=== PATIENT | male | born 1970 | race Caucasian/White ===

== ENCOUNTER 2018-11-06 01:05 | Emergency (ER) | payer MEDICAID, OTHER ==
[2015-10-15 12:55] VITALS: BP 147/65
[2018-11-06] MEDS ORDERED: KETOROLAC 30 MG/ML VIAL. ONE (02:00)
[2018-11-06] MEDS ORDERED: DEXAMETHASONE 4 MG TABLET ONE (02:00)
--- NOTE | 2018-11-06 07:42 | RAD ---
Indication: Right hip pain TECHNIQUE: 2 views of the right hip COMPARISON: None Findings/ impression: No acute fracture or dislocation. No imaging evidence of arthritis. Electronically signed by: Subhash Westfall DO (11/06/2018 7:39 AM) [facility]
== END 2018-11-06 01:40 | disposition home or self-care (01) ==
LOC: ER 01:05
DX: M25.551 Pain in right hip (principal); H92.02 Otalgia, left ear; R10.31 Right lower quadrant pain
CPT/HCPCS: 73502; 96372; 99284; J1885; J8540

== ENCOUNTER 2019-05-16 19:36 | Emergency (ER) | payer MEDICAID ==
[~2019-05-16] VITALS: Ht 172.7 cm; Wt 59.1 kg
[2019-05-16 20:15] VITALS: BP 167/75
[2019-05-16] MEDS ORDERED: KETOROLAC 60 MG/2 ML VIAL. IM ONE (21:00)
--- NOTE | 2019-05-16 21:17 | RAD ---
CHEST PA LATERAL Technique: PA and lateral views of the chest were obtained. Clinical History: Cough Comparison: April 09, 2014. Findings: The heart and pulmonary vasculature appear within normal limits. There are linear opacities in the lung bases. The pleural margins are clear. Impression: Basal infiltrates likely discoid atelectasis. Electronically signed by: King Cuevas III, MD (05/16/2019 9:14 PM) [facility]
[2019-05-16] MEDS ORDERED: AZIT250T PO (21:55)
[2019-05-16] MEDS ORDERED: DICL50TA4 PO (21:55)
--- NOTE | 2019-05-16 21:55 | PHYS DOC ---
Past Medical History Past Medical History: Anxiety, Hepatitis, Schizophrenia, Other Additional Past Medical Histor: TRAUMATIC BRAIN INJURY, BRAIN BLEEDS X 2 Past Surgical History: No Surgical History, Other Additional Past Surgical Histo: jaw fracture repair,back surg nos Alcohol Use: Occasionally Drug Use: None, Other Adult General Chief Complaint Chief Complaint: RIB PAIN HPI HPI Patient is a 48 year old male who presents with complaint of right sided chest wall pain that he describes as sharp and stabbing. Patient indicates that he has been having a cough that is intermittently productive sputum. Patient states that he is afraid that he has pneumonia. He denies any fever. He denies shortness of breath. He does indicate that the pain in his ribs is worsened with deep breathing. He states symptoms have been present for the last 2 days.[] Review of Systems Review of Systems Constitutional: Denies fever or chills [] Respiratory: Positive cough without shortness of breath [] Cardiovascular: No additional information not addressed in HPI [] GI: Denies abdominal pain, nausea, vomiting or diarrhea [] Integument: Denies rash or skin lesions [] Neurologic: Denies headache, focal weakness or sensory changes [] Current Medications Current Medications Current Medications Medications (Trade) Dose Ordered Sig/Josefa Start Time Stop Time Status Last Admin Dose Admin Ketorolac Tromethamine (Toradol Im) 60 mg 1X ONCE 05/16/19 21:00 05/16/19 21:01 DC 05/16/19 21:38 60 MG Allergies Allergies Allergies Coded Allergies Type Severity Reaction Last Updated Verified Penicillins Allergy Intermediate rash 11/06/18 Yes Physical Exam Physical Exam Constitutional: Well developed, well nourished, no acute distress, non-toxic appearance. [] Neck: Normal range of motion, no tenderness, supple, no stridor. [] Cardiovascular: Regular rate and rhythm[] Lungs & Thorax: Bilateral breath sounds clear to auscultation. There is reproducible tenderness over the right lower gilma-lateral rib margin [] Abdomen: Bowel sounds normal, soft, no tenderness, no masses, no pulsatile masses. [] Skin: Warm, dry, no erythema, no rash. [] Extremities: No tenderness, no cyanosis, no clubbing, ROM intact, no edema. [] Neurologic: Alert and oriented X 3, no focal deficits noted. [] Current Patient Data Vital Signs Vital Signs Date Time Temp Pulse Resp B/P (MAP) Pulse Ox O2 Delivery O2 Flow Rate FiO2 05/16/19 20:15 98.3 87 16 167/75 (105) 100 Room Air 98.3 EKG EKG [] Radiology/Procedures Radiology/Procedures [] Course & Med Decision Making Course & Med Decision Making Pertinent Labs and Imaging studies reviewed. (See chart for details) [] Dragon Disclaimer Dragon Disclaimer This electronic medical record was generated, in whole or in part, using a voice recognition dictation system. Departure Departure Impression: Primary Impression: Acute bronchitis Additional Impression: Costochondritis Disposition: HOME, SELF-CARE Condition: STABLE Referrals: NO PCP (PCP) Patient Instructions: Acute Bronchitis, Costochondritis Scripts Azithromycin (ZITHROMAX) 250 Mg Tablet 1 PKG PO UD, #6 TAB Prov: CYNDEE TENORIO Jr. DO 05/16/19 Diclofenac Sodium (DICLOFENAC SODIUM) 50 Mg Tablet.dr 1 TAB PO BID PRN for PAIN, #20 TAB Prov: CYNDEE TENORIO Jr. DO 05/16/19 Problem Qualifiers Primary Impression: Acute bronchitis Bronchitis organism: unspecified organism Qualified Codes: J20.9 - Acute bronchitis, unspecified CYNDEE TENORIO Jr. DO May 16, 2019 21:55
== END 2019-05-16 22:00 | disposition home or self-care (01) ==
LOC: ER 19:36
DX: J20.9 Acute bronchitis, unspecified (principal); M94.0 Chondrocostal junction syndrome [Tietze]; F41.9 Anxiety disorder, unspecified; F20.89 Other schizophrenia; Z87.820 Personal history of traumatic brain injury; Z98.890 Other specified postprocedural states; Z88.0 Allergy status to penicillin
CPT/HCPCS: 71046; 96372; 99284; J1885

== ENCOUNTER 2021-01-23 11:20 | Inpatient (IN) | payer MEDICAID ==
[~2021-01-23] VITALS: Ht 170.2 cm; Wt 59.5 kg
[2021-01-23] VITALS (8 sets, daily range): BP systolic 107–124; BP diastolic 52–87
[~2021-01-23 11:20] MED LIST: AZIT250T PO; DICL50TA4 PO
[2021-01-23] MEDS ORDERED: ONDANSETRON PF 4 MG/2 ML VIAL. IVP ONE (12:00)
[2021-01-23] MEDS ORDERED: IV NORMAL SALINE 1000ML BAG 1,000 ML IV SCH (12:00)
[2021-01-23] MEDS ORDERED: PANTOPRAZOLE IV PUSH 40 MG VIAL. IVP ONE (12:00)
[2021-01-23 12:15] LABS: BASO % 1 % (0-3); EOS # 0.1 x10^3/uL (0.0-0.7); EOS % 1 % (0-3); HEMATOCRIT 35.2 % (39.0-53.0); LYMPH # 1.3 x10^3/uL (1.0-4.8); LYMPH % 21 % (24-48); MEAN CORPUSCULAR HEMOGLOBIN 34 pg (25-35); MEAN CORPUSCULAR HGB CONC 34 g/dL (31-37); MEAN CORPUSCULAR VOLUME 99 fL (79-100); MONO # 0.7 x10^3/uL (0.0-1.1); MONO % 12 % (0-9); NEUT # 4.2 x10^3/uL (1.8-7.7); NEUT % 66 % (31-73); PLATELET COUNT 137 x10^3/uL (140-400); RED BLOOD COUNT 3.56 x10^6/uL (4.30-5.70); RED CELL DISTRIBUTION WIDTH 15.6 % (11.5-14.5); WHITE BLOOD COUNT 6.4 x10^3/uL (4.0-11.0)
[2021-01-23 12:33] LABS: CALCIUM 8.2 mg/dL (8.5-10.1); CREATININE 0.8 mg/dL (0.7-1.3); GFR 102.7; POTASSIUM 4.3 mmol/L (3.5-5.1)
[2021-01-23 12:38] LABS: ALBUMIN 2.4 g/dL (3.4-5.0); ALBUMIN/GLOBULIN RATIO 0.6 (1.0-1.7); TOTAL BILIRUBIN 2.1 mg/dL (0.2-1.0); TOTAL PROTEIN 6.2 g/dL (6.4-8.2)
[2021-01-23] MEDS ORDERED: OCTREOTIDE 100 MCG/ML VIAL IV ONE (12:45)
[2021-01-23] MEDS ORDERED: IOHEXOL 300 MG/ML 100ML VIAL. IV ONE (12:45)
[2021-01-23] MEDS ORDERED: IV NORMAL SALINE 1000ML BAG 1,000 ML IV ONE (12:45)
[2021-01-23] MEDS ORDERED: MULTIVIT INFUSN,ADULT 4,VIT K 10 ML, THIAMINE INJ 100 MG, FOLIC ACID INJ 1 MG in IV NOR... IV ONE (13:00)
[2021-01-23] MEDS ORDERED: CONTRAST GIVEN. MC PRN (13:00)
[2021-01-23] MEDS: OCTREOTIDE 500 MCG in IV NORMAL SALINE 100ML 100 ML IV PRN (13:02)
--- NOTE | 2021-01-23 13:02 | PHYS DOC ---
Past Medical History Past Medical History: Anxiety, Hepatitis, Schizophrenia, Other Additional Past Medical Histor: TRAUMATIC BRAIN INJURY, BRAIN BLEEDS X 2 Past Surgical History: No Surgical History, Other Additional Past Surgical Histo: jaw fracture repair,back surg nos Smoking Status: Current Every Day Smoker Alcohol Use: Heavy Drug Use: None, Other General Adult EDM: Chief Complaint: HEMATEMESIS/VOMITING BLOOD HPI: HPI: Patient is a 50 year old male who presents with his 9:00 this morning is been vomiting bright red blood. He states he feels like he is rotting from the inside out when he does have some tremors. He states he drinks 5 beers a day. He states he drinks no beers today. He does have tremors when he holds his hands out. Patient is having visual hallucinations. He is calm and cooperative. He states he is having epigastric pain and just does not feel well in general. He is denying any kind of drug use. He denies having been diagnosed with any varices in the past. He has a history of alcoholism, hepatitis, schizophrenia, anxiety, smoking, traumatic brain injury, brain bleed x3. Denying headache, blood in his stool, cough, shortness of breath, fever, dizziness, vision change, numbness and tingling, focal weakness. Review of Systems: Review of Systems: Constitutional: Denies fever or chills. [] Eyes: Denies change in visual acuity. [] HENT: Denies nasal congestion or sore throat. [] Respiratory: Denies cough or shortness of breath. [] Cardiovascular: Denies chest pain or edema. [] GI: +abdominal pain, +nausea, +vomiting, denies bloody stools or diarrhea. +bloody vomit[] : Denies dysuria. [] Musculoskeletal: Denies back pain or joint pain. [] Integument: Denies rash. [] Neurologic: Denies headache, focal weakness or sensory changes. [] Endocrine: Denies polyuria or polydipsia. [] Lymphatic: Denies swollen glands. [] Psychiatric: Denies depression or +anxiety. +hallucination[] Heart Score: C/O Chest Pain: No HEART Score for Chest Pain: HEART Score for Chest Pain Response (Comments) Value History Slighlty/Non-Suspicious 0 ECG Nonspecific Repolarizatio 1 Age >45 - < 65 1 Risk Factors 1 or 2 Risk Factors 1 Troponin < Normal Limit 0 Total 3 Risk Factors: Risk Factors: DM, Current or recent (<one month) smoker, HTN, HLP, family history of CAD, obesity. Risk Scores: Score 0 - 3: 2.5% MACE over next 6 weeks - Discharge Home Score 4 - 6: 20.3% MACE over next 6 weeks - Admit for Clinical Observation Score 7 - 10: 72.7% MACE over next 6 weeks - Early Invasive Strategies Current Medications: Current Medications Medications (Trade) Dose Ordered Sig/Josefa Start Time Stop Time Status Last Admin Dose Admin Octreotide Acetate 500 mcg/ Sodium Chloride 101 ml @ 0 mls/hr CONT PRN 01/23/21 12:45 UNV Octreotide Acetate (SandoSTATIN) 100 mcg 1X ONCE 01/23/21 12:45 01/23/21 12:46 UNV Ondansetron HCl (Zofran) 4 mg 1X ONCE 01/23/21 12:00 01/23/21 12:01 DC Pantoprazole Sodium (PROTONIX VIAL for IV PUSH) 40 mg 1X ONCE 01/23/21 12:00 01/23/21 12:01 DC Sodium Chloride 1,000 ml @ 1,000 mls/hr 1X ONCE 01/23/21 12:45 01/23/21 13:44 Allergies: Allergies: Allergies Coded Allergies Type Severity Reaction Last Updated Verified Penicillins Allergy Intermediate rash 11/06/18 Yes Physical Exam: PE: Constitutional: Well developed, well nourished, no acute distress, non-toxic appearance. [] HENT: Normocephalic, atraumatic, bilateral external ears normal, oropharynx moist, no oral exudates, nose normal. [] Eyes: PERRLA, EOMI, conjunctiva normal, no discharge. [] Neck: Normal range of motion, no tenderness, supple, no stridor. [] Cardiovascular:Heart rate regular rhythm, no murmur [] Lungs & Thorax: Bilateral breath sounds clear to auscultation [] Abdomen: Bowel sounds normal, soft, epigastric tenderness, no masses, no pulsatile masses. [] Skin: Warm, dry, no erythema, no rash. Jaundice [] Back: No tenderness, no CVA tenderness. [] Extremities: No tenderness, no cyanosis, no clubbing, ROM intact, no edema. [] Neurologic: Alert and oriented X 3, normal motor function, normal sensory function, no focal deficits noted. [] Psychologic: Affect normal, judgement normal, mood normal. Hallucinating [] Current Patient Data: Labs: Laboratory Tests Test 01/23/21 12:00 White Blood Count 6.4 x10^3/uL (4.0-11.0) Red Blood Count 3.56 x10^6/uL (4.30-5.70) L Hemoglobin 12.0 g/dL (13.0-17.5) L Hematocrit 35.2 % (39.0-53.0) L Mean Corpuscular Volume 99 fL (79-100) Mean Corpuscular Hemoglobin 34 pg (25-35) Mean Corpuscular Hemoglobin Concent 34 g/dL (31-37) Red Cell Distribution Width 15.6 % (11.5-14.5) H Platelet Count 137 x10^3/uL (140-400) L Neutrophils (%) (Auto) 66 % (31-73) Lymphocytes (%) (Auto) 21 % (24-48) L Monocytes (%) (Auto) 12 % (0-9) H Eosinophils (%) (Auto) 1 % (0-3) Basophils (%) (Auto) 1 % (0-3) Neutrophils # (Auto) 4.2 x10^3/uL (1.8-7.7) Lymphocytes # (Auto) 1.3 x10^3/uL (1.0-4.8) Monocytes # (Auto) 0.7 x10^3/uL (0.0-1.1) Eosinophils # (Auto) 0.1 x10^3/uL (0.0-0.7) Basophils # (Auto) 0.0 x10^3/uL (0.0-0.2) Sodium Level 140 mmol/L (136-145) Potassium Level 4.3 mmol/L (3.5-5.1) Chloride Level 107 mmol/L (98-107) Carbon Dioxide Level 28 mmol/L (21-32) Anion Gap 5 (6-14) L Blood Urea Nitrogen 19 mg/dL (8-26) Creatinine 0.8 mg/dL (0.7-1.3) Estimated GFR (Cockcroft-Gault) 102.7 BUN/Creatinine Ratio 24 (6-20) H Glucose Level 133 mg/dL (70-99) H Calcium Level 8.2 mg/dL (8.5-10.1) L Total Bilirubin 2.1 mg/dL (0.2-1.0) H Aspartate Amino Transferase (AST) 146 U/L (15-37) H Alanine Aminotransferase (ALT) 197 U/L (16-63) H Alkaline Phosphatase 143 U/L (46-116) H Ammonia 43 mcmol/L (11-34) H Total Protein 6.2 g/dL (6.4-8.2) L Albumin 2.4 g/dL (3.4-5.0) L Albumin/Globulin Ratio 0.6 (1.0-1.7) L Lipase 192 U/L (73-393) Ethyl Alcohol Level < 10 mg/dL (0-10) Laboratory Tests 01/23/21 12:00 Laboratory Tests 01/23/21 12:00 Vital Signs: Vital Signs Date Time Temp Pulse Resp B/P (MAP) Pulse Ox O2 Delivery O2 Flow Rate FiO2 01/23/21 11:25 97.4 77 20 130/68 (88) 100 Room Air 97.4 EKG: EK and read by Dr. Colbert as sinus rhythm no STEMI Radiology/Procedures: Radiology/Procedures: [] Impression: [facility] [address] [place], [place] [id number] IMAGING REPORT Signed PATIENT: BENTLEY SHERMAN ACCOUNT: [id number] : 1970 LOCATION: ER AGE: 50 SEX: M EXAM STATUS: REG ER ORD. PHYSICIAN: MUKUL BARROW APRN REASON: hallucinations PROCEDURE: CT HEAD WO CONTRAST Exam performed: CT scan of the head without contrast. Date of Service: 01/23/21. Comparison: 06/13/14. Clinical History: Hallucinations. Technique: Helical acquisitions are obtained from the foramen magnum to the vertex without intravenous administration of contrast. Findings: The ventricles are midline without evidence of dilatation. Normal allan-white differentiation is maintained. There is no extra axial fluid collection, intraparenchymal hemorrhage or mass lesion. The visualized portions of the orbits, paranasal sinuses and the mastoid air cells appear clear. The calvarium is intact. Impression: 1. No acute intracranial process detected. RS Compliance Statement: One or more of the following individualized dose reduction techniques were utilized for this examination: 1. Automated exposure control 2. Adjustment of the mA and/or kV according to patient size 3. Use of iterative reconstruction technique Electronically signed by: Madelin Harrison MD (01/23/2021 1:35 PM) [facility] DICTATED and SIGNED BY: MADELIN HARRISON MD DATE: 01/23/21 [id number] [facility] [address] [place] [address] IMAGING REPORT Signed PATIENT: BENTLEY SHERMAN ACCOUNT: [id number] : 1970 LOCATION: ER AGE: 50 SEX: M EXAM STATUS: REG ER ORD. PHYSICIAN: MUKUL BARROW APRN REASON: VOMITING, EPIGASTRIC PROCEDURE: PORTABLE CHEST 1V INDICATION: Reason: VOMITING, EPIGASTRIC / Spl. Instructions: / History: COMPARISON: April 2019 FINDINGS: Single view of chest obtained. Linear opacity left lung base without consolidation elsewhere in the lungs. Cardiac silhouette unremarkable IMPRESSION: * Linear opacity left lung base likely atelectasis. No definite consolidation elsewhere in the lungs. Electronically signed by: Luca Hackett MD (01/23/2021 1:25 PM) [id number] DICTATED and SIGNED BY: LUCA HACKETT MD DATE: 01/23/21 [id number] [facility] [address] [place] [address] IMAGING REPORT Signed PATIENT: BENTLEY SHERMAN ACCOUNT: [id number] : 1970 LOCATION: ER AGE: 50 SEX: M EXAM STATUS: REG ER ORD. PHYSICIAN: MUKUL BARROW APRN REASON: EPIGASTRIC PAIN, VOMITING BLOOD, ETOH PROCEDURE: CT ABD PELV W/ IV CONTRST ONLY INDICATION: Reason: EPIGASTRIC PAIN, VOMITING BLOOD, ETOH / Spl. Instructions: IV OMNI 300 75 MLS / History: COMPARISON: None. TECHNIQUE: Axial CT images were obtained through the abdomen and pelvis with intravenous contrast. One or more of the following individualized dose reduction techniques were utilized for this examination: 1. Automated exposure control; 2. Adjustment of the mA and/or kV according to patient size; 3. Use of iterative reconstruction technique. FINDINGS: Suspected hiatal hernia with some wall thickening of the hiatal hernia and distal esophagus with surrounding varices. At the right inguinal region there is a soft tissue density structure identified measuring 36 x 22 mm. Vascular: No abdominal aortic aneurysm. Hepatobiliary: Liver is low density with nodular contour. Patent umbilical vein. Edema and fluid is seen surrounding the partially contracted gallbladder. Pancreas: There is some edema at the pancreatic region as well as adjacent to the duodenum. Duodenum is mildly distended. Spleen: Spleen unremarkable. Renal/Bladder: Urinary bladder is partially distended with prominence of wall. No hydronephrosis. Gastrointestinal: Colonic diverticulosis. There is a calcification adjacent to the appendix with air in the appendiceal lumen. The appendix does not appear grossly inflamed. Mild prominence the wall of the colon. There is some edema seen adjacent to a portion of the colon as well including ascending. IMPRESSION: * Suspected hiatal hernia as well as distention of the distal esophagus with wall thickening and varices. This could be secondary to causes such as esophagitis and portal hypertension with gastroesophageal varices. * Nodular liver contour with patent umbilical vein which can be seen with cirrhosis and portal hypertension. * Edema is seen surrounding the pancreas, duodenum and gallbladder. Differential considerations would include cholecystitis, pancreatitis as well as duodenal ulcer or duodenitis. Could also be a combination of these. * There is also some prominence of the wall the colon including in the right upper quadrant where there is some adjacent haziness to the fat. Causes such as diverticulitis or colitis are within the differential. Follow-up could be obtained to ensure that this does not persist to exclude a colonic wall lesion. * Within the right inguinal canal there is a soft tissue density structure. Would correlate with physical exam findings since this could be secondary to retracted testicle but high density fluid or soft tissue lesion cannot be excluded. Electronically signed by: Luca Hackett MD (01/23/2021 2:19 PM) [id number] DICTATED and SIGNED BY: LUCA HACKETT MD DATE: 01/23/21 [id number] Course & Med Decision Making: Course & Med Decision Making Pertinent Labs and Imaging studies reviewed. (See chart for details) See HPI. Alert and oriented x4. Patient is hallucinating stating that there is something attached to him when he looks in the mirror and that he feels like he is rotting from the inside out. Patient is also talking about other spirits running out of here because of Addy and he has been preaching and praying to Rosi lot. He states he drinks 5 beers a day. He states he last drink yesterday. His alcohol level today is 0. When he sticks his hand straight out there are tremors. He did vomit 200 mL of bright red blood in the ED. Octreotide drip and bolus is given. He is also given a dose of Protonix. He is started on a Protonix drip. Hemoglobin is stable at this time. He is jaundice appearing. Speaks in full clear sentences. Is denying drug use. Abdomen soft but tender to the epigastric area. Patient only agreed to the rapid Covid nasal swab. I spoke to Dr. Jeffries who stated that he will "find the patient" on the unit but gave no other orders. Admitted to hospitalist. [] Carmela Disclaimer: Carmela Disclaimer: This electronic medical record was generated, in whole or in part, using a voice recognition dictation system. Departure Departure Impression: Primary Impression: GI bleed Qualified Codes: K92.2 - Gastrointestinal hemorrhage, unspecified Additional Impression: Esophageal varices in alcoholic cirrhosis Disposition: ADMITTED INPATIENT Admitting Physician: ANDREW Condition: GOOD Referrals: NO PCP (PCP) MUKUL BARROW APRN Jan 23, 2021 13:02
[2021-01-23] MEDS ORDERED: diphenhydrAMINE 50 MG/ML VIAL IVP PRN (13:15)
[2021-01-23] MEDS ORDERED: HALOPERIDOL LACTATE 5 MG/ML VIAL. IVP PRN (13:15)
[2021-01-23] MEDS ORDERED: cloNIDine HCL 0.1 MG TABLET PO PRN (13:15)
--- NOTE | 2021-01-23 13:28 | RAD ---
INDICATION: Reason: VOMITING, EPIGASTRIC / Spl. Instructions: / History: COMPARISON: April 2019 FINDINGS: Single view of chest obtained. Linear opacity left lung base without consolidation elsewhere in the lungs. Cardiac silhouette unrema rkable IMPRESSION: * Linear opacity left lung base likely atelectasis. No definite consolidation elsewhere in the lungs . Electronically signed by: Mihir Mancia MD (01/23/2021 1:25 PM) [id number]
--- NOTE | 2021-01-23 13:38 | RAD ---
Exam performed: CT scan of the head without contrast. Date of Service: 01/23/21. Comparison: 06/13/14. Clinical History: Hallucinations. Technique: Helical acquisitions are obtained from the foramen magnum to the vertex without intravenou s administration of contrast. Findings: The ventricles are midline without evidence of dilatation. Normal allan-white differentiation is maint ained. There is no extra axial fluid collection, intraparenchymal hemorrhage or mass lesion. The vi sualized portions of the orbits, paranasal sinuses and the mastoid air cells appear clear. The medardo rium is intact. Impression: 1. No acute intracranial process detected. PQRS Compliance Statement: One or more of the following individualized dose reduction techniques were utilized for this examinat ion: 1. Automated exposure control 2. Adjustment of the mA and/or kV according to patient size 3. Use of iterative reconstruction technique Electronically signed by: Madelin Harrison MD (01/23/2021 1:35 PM) [facility]
--- NOTE | 2021-01-23 13:44 | PDOC1 ---
History and Physical Date of Admission Date of Admission DATE: 01/23/21 TIME: 13:25 Identification/Chief Complaint Chief Complaint Hematemesis Source Source: Patient History of Present Illness History of Present Illness Patient is a 50-year-old male with reported past medical history cirrhosis, hepatitis C, alcohol abuse, IV drug use, who presents to the ED with complaints of hematemesis that began this morning. Associated abdominal pain and diarrhea x1. States he does have a history of regular alcohol abuse, drinking roughly 5 beers a day, and states his last drink was yesterday. He also reports a history of alcohol withdrawals and seizures. Upon arrival in the ED he apparently had another episode of bright red blood hematemesis. Labs on admission showed WBC 6.5, hemoglobin 12.0, hematocrit 35.2, platelets 137, CBG 133, total bili 21, AST 146, ALT 197, alk phos 143, albumin 2.4, ammonia 43, ethanol level <10. He is headed to CT as an evaluating patient in the ED. States at the moment his on ly complaint is abdominal pain and headache. Consultation was placed to GI in the ED. He was given octreotide bolus and started on octreotide infusion. Will admit patient for further medical management. Past Medical History Past Medical History Cirrhosis, hepatitis C, alcohol abuse, schizophrenia, traumatic head injury, brain bleed Past Surgical History Past Surgical History Jaw fracture repair, back surgery Family History Family History Reviewed with patient but denies significant family history Social History Smoke: <1 pack per day ALCOHOL: heavy Drugs: Cocaine, Crystal meth Current Problem List Problem List Problems Medical Problems: (1) GI bleed Status: Acute Current Medications Current Medications Current Medications Sodium Chloride 1,000 ml @ 1,000 mls/hr Q1H IV Last administered on 01/23/21at 12:37; Start 01/23/21 at 12:00; Stop 01/23/21 at 12:59; Status DC Ondansetron HCl (Zofran) 4 mg 1X ONCE IVP Last administered on 01/23/21at 12:38; Start 01/23/21 at 12:00; Stop 01/23/21 at 12:01; Status DC Pantoprazole Sodium (PROTONIX VIAL for IV PUSH) 40 mg 1X ONCE IVP Last administered on 01/23/21at 12:41; Start 01/23/21 at 12:00; Stop 01/23/21 at 12:01; Status DC Sodium Chloride 1,000 ml @ 1,000 mls/hr 1X ONCE IV ; Start 01/23/21 at 12:45; Stop 01/23/21 at 13:14; Status DC Octreotide Acetate 500 mcg/ Sodium Chloride 101 ml @ 5.05 mls/hr CONT PRN IV SEE I/O RECORD Last administered on 01/23/21at 13:02; Start 01/23/21 at 12:45 Octreotide Acetate (SandoSTATIN) 100 mcg 1X ONCE IV Last administered on 01/23/21at 13:01; Start 01/23/21 at 12:45; Stop 01/23/21 at 12:46; Status DC Iohexol (Omnipaque 300 Mg/ml) 75 ml 1X ONCE IV ; Start 01/23/21 at 12:45; Stop 01/23/21 at 12:47; Status DC Info (CONTRAST GIVEN -- Rx MONITORING) 1 each PRN DAILY PRN MC SEE COMMENTS; Start 01/23/21 at 13:00; Stop 01/25/21 at 12:59 Multivitamins 10 ml/Thiamine HCl 100 mg/Folic Acid 1 mg/Sodium Chloride 1,011.2 ml @ 1,000.088 mls/hr 1X ONCE IV ; Start 01/23/21 at 13:00; Stop 01/23/21 at 14:00 Pantoprazole Sodium 80 mg/ Sodium Chloride 100 ml @ 10 mls/hr Q10H IV ; Start 01/23/21 at 13:00 Sodium Chloride 1,000 ml @ 125 mls/hr Q8H IV ; Start 01/23/21 at 13:15; Stop 01/24/21 at 13:14 Lorazepam (Ativan Inj) 2 mg PRN Q1HR PRN IV For CIWA 8-14; Start 01/23/21 at 13:15 Lorazepam (Ativan Inj) 4 mg PRN Q1HR PRN IV For CIWA 15 or greater; Start 01/23/21 at 13:15 Haloperidol Lactate (Haldol Inj) 5 mg PRN Q4HRS PRN IVP Hallucinatns,Confusn,Delirium; Start 01/23/21 at 13:15 Diphenhydramine HCl (Benadryl) 25 mg PRN Q15MIN PRN IVP EPS symptoms 2'Haldol admin; Start 01/23/21 at 13:15 Clonidine HCl (Catapres) 0.1 mg PRN Q1HR PRN PO SBP > 180 or DBP > 100, MRX3; Start 01/23/21 at 13:15 Lorazepam (Ativan Inj) 2 mg PRN Q15MIN PRN IV SEE COMMENTS; Start 01/23/21 at 13:15 Lorazepam (Ativan Inj) 4 mg PRN Q15MIN PRN IV SEE COMMENTS; Start 01/23/21 at 13:15 Active Scripts Active Zithromax (Azithromycin) 250 Mg Tablet 1 Pkg PO UD Diclofenac Sodium 50 Mg Tablet.dr 1 Tab PO BID PRN Allergies Allergies: Coded Allergies: Penicillins (Verified Allergy, Intermediate, rash, 11/06/18) ROS Review of System GENERAL: No history of weight change, weakness or fevers. SKIN: No bruising, hair changes or rashes. EYES: No blurred, double or loss of vision. NOSE AND THROAT: No history of nosebleeds, hoarseness or sore throat. HEART: Denies chest pain, denies palpitations. LUNGS: Denies cough, hemoptysis, wheezing or shortness of breath. GASTROINTESTINAL: Hematemesis, nausea, abdominal pain GENITOURINARY: Denies dysuria, frequency, urgency, hematuria. NEUROLOGIC: Headache. Denies history of numbness, tingling, tremor or weakness. PSYCHIATRIC: Denies anxiety, denies depression. ENDOCRINE: No history of heat or cold intolerance, polyuria or polydipsia. EXTREMITIES: Denies muscle weakness, joint pain, pain on walking or stiffness. Physical Exam Physical Exam General: Alert, Oriented X3, Cooperative, mild distress HEENT: PERRLA, EOMI Lungs: Clear to auscultation, Normal air movement Heart: RRR, no murmurs Cardiovascular: S1, S2 Abdomen: Normal bowel sounds, Soft, No tenderness Extremities: No clubbing, No cyanosis Skin: Jaundiced appearing. No rashes, No significant lesion Neuro: Normal speech, Normal tone, Sensation intact Psych/Mental Status: Mental status NL, Mood NL Vitals Vitals Vital Signs Date Time Temp Pulse Resp B/P (MAP) Pulse Ox O2 Delivery O2 Flow Rate FiO2 01/23/21 12:45 92 21 134/77 (96) 100 Room Air 01/23/21 11:25 97.4 97.4 Labs Labs Laboratory Tests Test 01/23/21 12:00 White Blood Count 6.4 x10^3/uL (4.0-11.0) Red Blood Count 3.56 x10^6/uL (4.30-5.70) Hemoglobin 12.0 g/dL (13.0-17.5) Hematocrit 35.2 % (39.0-53.0) Mean Corpuscular Volume 99 fL (79-100) Mean Corpuscular Hemoglobin 34 pg (25-35) Mean Corpuscular Hemoglobin Concent 34 g/dL (31-37) Red Cell Distribution Width 15.6 % (11.5-14.5) Platelet Count 137 x10^3/uL (140-400) Neutrophils (%) (Auto) 66 % (31-73) Lymphocytes (%) (Auto) 21 % (24-48) Monocytes (%) (Auto) 12 % (0-9) Eosinophils (%) (Auto) 1 % (0-3) Basophils (%) (Auto) 1 % (0-3) Neutrophils # (Auto) 4.2 x10^3/uL (1.8-7.7) Lymphocytes # (Auto) 1.3 x10^3/uL (1.0-4.8) Monocytes # (Auto) 0.7 x10^3/uL (0.0-1.1) Eosinophils # (Auto) 0.1 x10^3/uL (0.0-0.7) Basophils # (Auto) 0.0 x10^3/uL (0.0-0.2) Sodium Level 140 mmol/L (136-145) Potassium Level 4.3 mmol/L (3.5-5.1) Chloride Level 107 mmol/L (98-107) Carbon Dioxide Level 28 mmol/L (21-32) Anion Gap 5 (6-14) Blood Urea Nitrogen 19 mg/dL (8-26) Creatinine 0.8 mg/dL (0.7-1.3) Estimated GFR (Cockcroft-Gault) 102.7 BUN/Creatinine Ratio 24 (6-20) Glucose Level 133 mg/dL (70-99) Calcium Level 8.2 mg/dL (8.5-10.1) Magnesium Level 1.8 mg/dL (1.8-2.4) Total Bilirubin 2.1 mg/dL (0.2-1.0) Aspartate Amino Transf (AST/SGOT) 146 U/L (15-37) Alanine Aminotransferase (ALT/SGPT) 197 U/L (16-63) Alkaline Phosphatase 143 U/L (46-116) Ammonia 43 mcmol/L (11-34) Troponin I Quantitative < 0.017 ng/mL (0.000-0.055) Total Protein 6.2 g/dL (6.4-8.2) Albumin 2.4 g/dL (3.4-5.0) Albumin/Globulin Ratio 0.6 (1.0-1.7) Lipase 192 U/L (73-393) Ethyl Alcohol Level < 10 mg/dL (0-10) Laboratory Tests Test 01/23/21 12:00 White Blood Count 6.4 x10^3/uL (4.0-11.0) Red Blood Count 3.56 x10^6/uL (4.30-5.70) Hemoglobin 12.0 g/dL (13.0-17.5) Hematocrit 35.2 % (39.0-53.0) Mean Corpuscular Volume 99 fL (79-100) Mean Corpuscular Hemoglobin 34 pg (25-35) Mean Corpuscular Hemoglobin Concent 34 g/dL (31-37) Red Cell Distribution Width 15.6 % (11.5-14.5) Platelet Count 137 x10^3/uL (140-400) Neutrophils (%) (Auto) 66 % (31-73) Lymphocytes (%) (Auto) 21 % (24-48) Monocytes (%) (Auto) 12 % (0-9) Eosinophils (%) (Auto) 1 % (0-3) Basophils (%) (Auto) 1 % (0-3) Neutrophils # (Auto) 4.2 x10^3/uL (1.8-7.7) Lymphocytes # (Auto) 1.3 x10^3/uL (1.0-4.8) Monocytes # (Auto) 0.7 x10^3/uL (0.0-1.1) Eosinophils # (Auto) 0.1 x10^3/uL (0.0-0.7) Basophils # (Auto) 0.0 x10^3/uL (0.0-0.2) Sodium Level 140 mmol/L (136-145) Potassium Level 4.3 mmol/L (3.5-5.1) Chloride Level 107 mmol/L (98-107) Carbon Dioxide Level 28 mmol/L (21-32) Anion Gap 5 (6-14) Blood Urea Nitrogen 19 mg/dL (8-26) Creatinine 0.8 mg/dL (0.7-1.3) Estimated GFR (Cockcroft-Gault) 102.7 BUN/Creatinine Ratio 24 (6-20) Glucose Level 133 mg/dL (70-99) Calcium Level 8.2 mg/dL (8.5-10.1) Magnesium Level 1.8 mg/dL (1.8-2.4) Total Bilirubin 2.1 mg/dL (0.2-1.0) Aspartate Amino Transf (AST/SGOT) 146 U/L (15-37) Alanine Aminotransferase (ALT/SGPT) 197 U/L (16-63) Alkaline Phosphatase 143 U/L (46-116) Ammonia 43 mcmol/L (11-34) Troponin I Quantitative < 0.017 ng/mL (0.000-0.055) Total Protein 6.2 g/dL (6.4-8.2) Albumin 2.4 g/dL (3.4-5.0) Albumin/Globulin Ratio 0.6 (1.0-1.7) Lipase 192 U/L (73-393) Ethyl Alcohol Level < 10 mg/dL (0-10) VTE Prophylaxis Ordered VTE Prophylaxis Devices: Yes VTE Pharmacological Prophylaxi: No Assessment/Plan Assessment/Plan Hematemesis Suspect bleeding esophageal varices Transaminitis Thrombocytopenia Hyperammonemia History alcohol withdrawal Severe malnutrition History hepatitis C Plan: Suspect esophageal variceal bleed CT abdomen pending IV octreotide infusion IV Protonix infusion Alcohol withdrawal protocol Will place consultation to PAT team CT abdomen/pelvis pending Elevated ammonia likely secondary to liver disease and acute GI bleed FEN - NPO PPX - SCDs FULL CODE Dispo - inpatient for above Patient names his aunt (Rachna Parker) as surrogate decision-maker Critical care time 30 minutes Justifications for Admission Other Justification DINO HAYNES MD Jan 23, 2021 13:44
[2021-01-23] MEDS ORDERED: ONDANSETRON PF 4 MG/2 ML VIAL. IVP PRN (14:00)
[2021-01-23] MEDS ORDERED: ACETAMINOPHEN 325 MG TABLET. PO PRN (14:00)
[2021-01-23 14:05] LABS: PROTHROMBIN TIME PATIENT 18.4 SEC (11.7-14.0)
--- NOTE | 2021-01-23 14:22 | RAD ---
INDICATION: Reason: EPIGASTRIC PAIN, VOMITING BLOOD, ETOH / Spl. Instructions: IV OMNI 300 75 MLS / H istory: COMPARISON: None. TECHNIQUE: Axial CT images were obtained through the abdomen and pelvis with intravenous contrast. One or more of the following individualized dose reduction techniques were utilized for this examinat ion: 1. Automated exposure control; 2. Adjustment of the mA and/or kV according to patient size; 3 . Use of iterative reconstruction technique. FINDINGS: Suspected hiatal hernia with some wall thickening of the hiatal hernia and distal esophagus with surr ounding varices. At the right inguinal region there is a soft tissue density structure identified measuring 36 x 22 mm . Vascular: No abdominal aortic aneurysm. Hepatobiliary: Liver is low density with nodular contour. Patent umbilical vein. Edema and fluid is s een surrounding the partially contracted gallbladder. Pancreas: There is some edema at the pancreatic region as well as adjacent to the duodenum. Duodenum is mildly distended. Spleen: Spleen unremarkable. Renal/Bladder: Urinary bladder is partially distended with prominence of wall. No hydronephrosis. Gastrointestinal: Colonic diverticulosis. There is a calcification adjacent to the appendix with air in the appendiceal lumen. The appendix does not appear grossly inflamed. Mild prominence the wall of the colon. There is some edema seen adjacent to a portion of the colon as well including ascending. IMPRESSION: * Suspected hiatal hernia as well as distention of the distal esophagus with wall thickening and va rices. This could be secondary to causes such as esophagitis and portal hypertension with gastroesoph ageal varices. * Nodular liver contour with patent umbilical vein which can be seen with cirrhosis and portal hyper tension. * Edema is seen surrounding the pancreas, duodenum and gallbladder. Differential considerations woul d include cholecystitis, pancreatitis as well as duodenal ulcer or duodenitis. Could also be a combin ation of these. * There is also some prominence of the wall the colon including in the right upper quadrant where th ere is some adjacent haziness to the fat. Causes such as diverticulitis or colitis are within the dif ferential. Follow-up could be obtained to ensure that this does not persist to exclude a colonic wall lesion. * Within the right inguinal canal there is a soft tissue density structure. Would correlate with phy sical exam findings since this could be secondary to retracted testicle but high density fluid or sof t tissue lesion cannot be excluded. Electronically signed by: Mihir Mancia MD (01/23/2021 2:19 PM) [id number]
[2021-01-23] MEDS ORDERED: fentaNYL PF VIAL 100 MCG/2 ML VIAL IVP ONE (14:45)
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
[2021-01-23] MEDS: PANTOPRAZOLE SODIUM IV DRIP 80 MG in IV NORMAL SALINE 100ML 100 ML IV SCH ×2 (14:49→23:51)
[2021-01-23] MEDS: IV NORMAL SALINE 1000ML BAG 1,000 ML IV SCH ×2 (14:49→21:30)
[2021-01-23 14:51] LABS: BILIRUBIN,URINE NEGATIVE (NEG); CLARITY,URINE HAZY; COLOR,URINE YELLOW; PH,URINE 6.5 (<5.0-8.0); PROTEIN,URINE NEGATIVE (NEG-TRACE)
[2021-01-23 14:52] LABS: BARBITURATES NEG (NEG); BENZODIAZEPINES NEG (NEG); CANNABINOIDS POS (NEG); COCAINE NEG (NEG); METHADONE NEG (NEG); NITRITE,URINE NEGATIVE (NEG); OPIATES NEG (NEG); PHENCYCLIDINE NEG (NEG); UROBILINOGEN,URINE 0.2 mg/dL (0.2 mg/dL)
[2021-01-23 14:53] LABS: BACTERIA,URINE 0 /HPF (0-FEW); RBC,URINE 0 /HPF (0-2); WBC,URINE 0 /HPF (0-4)
[2021-01-23 14:54] LABS: AMPHETAMINE/METHAMPHETAMINE NEG (NEG)
--- NOTE | 2021-01-23 15:09 | EKG ---
[facility] [address] [place] [address] Test Date: 2021-01-23 Test Time: 11:57:46 Pat Name: BENTLEY SHERMAN Department: Room: ED HOLD 20 Gender: M Bed Manager: : 1970 Requested By: MUKUL BARROW Order Number: [id number] Reading MD: Filippo Mercedes Measurements Intervals [place] Rate: 70 P: 33 FL: 128 QRS: 32 QRSD: 82 T: 44 QT: 386 QTc: 420 Interpretive Statements SINUS RHYTHM Electronically Signed On 01-25-2021 13:45:57 CDT by Filippo Mercedes
[2021-01-23] MEDS: MORPHINE SULFATE 4 MG/ML INJ. IVP PRN (21:30)
[2021-01-24] VITALS (22 sets, daily range): BP systolic 74–131; BP diastolic 39–88
[2021-01-24] MEDS: OCTREOTIDE 500 MCG in IV NORMAL SALINE 100ML 100 ML IV PRN (02:59)
[2021-01-24] MEDS ORDERED: CLON0.5T4 PO (04:10)
[2021-01-24] MEDS ORDERED: OLAN20TA15 PO (04:10)
[2021-01-24] MEDS ORDERED: MELA3CAP2 PO (04:10)
[2021-01-24] MEDS: IV NORMAL SALINE 1000ML BAG 1,000 ML IV SCH (05:15)
[2021-01-24 05:42] LABS: HEMATOCRIT 22.6 % (39.0-53.0); HEMOGLOBIN 7.7 g/dL (13.0-17.5); RED BLOOD COUNT 2.24 x10^6/uL (4.30-5.70); RED CELL DISTRIBUTION WIDTH 15.4 % (11.5-14.5); WHITE BLOOD COUNT 4.7 x10^3/uL (4.0-11.0)
[2021-01-24 05:58] LABS: CREATININE 0.9 mg/dL (0.7-1.3); GFR 89.7; POTASSIUM 3.8 mmol/L (3.5-5.1)
[2021-01-24 06:47] LABS: PROTHROMBIN TIME PATIENT 18.7 SEC (11.7-14.0)
[2021-01-24] MEDS ORDERED: METOCLOPRAMIDE HCL 10 MG/2 ML VIAL. IVP ONE (09:30)
[2021-01-24] MEDS: MORPHINE SULFATE 2 MG/ML INJ. IV PRN ×2 (09:35→20:09)
[2021-01-24] MEDS: PANTOPRAZOLE SODIUM IV DRIP 80 MG in IV NORMAL SALINE 100ML 100 ML IV SCH (10:15)
[2021-01-24 11:57] LABS: HEMATOCRIT 23.2 % (39.0-53.0); HEMOGLOBIN 7.8 g/dL (13.0-17.5); RED BLOOD COUNT 2.27 x10^6/uL (4.30-5.70); RED CELL DISTRIBUTION WIDTH 15.5 % (11.5-14.5); WHITE BLOOD COUNT 2.9 x10^3/uL (4.0-11.0)
[2021-01-24] MEDS ORDERED: PROPOFOL 10 MG/ML (20ML) VIAL. IV ONE (12:52)
--- NOTE | 2021-01-24 14:02 | PDOC4 ---
PROCEDURE Procedure EGD/biopsy Indication: hematemesis/melena/acute anemia Meds: per anesthesia Findings: E--Grade D reflux esophagitis from 28-35 cm. NO VARICES. G--Diffuse portal gastropathy with mild oozing in spots. Tiny prepyloric ulcer with clean base. Antral biopsies taken. No gastric varices. D--Normal to second portion. [place]. well. IMP: Severe reflux esophagitis. Portal gastropathy. Tiny prepyloric ulcer. REC: Stop octreotide. PO PPI/clears. Out of ICU OK. Monitor for bleeding. Await biopsies. RYLIE CANTU MD Jan 24, 2021 14:02
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
[2021-01-24] MEDS: PANTOPRAZOLE 40 MG TABLET.DR. PO SCH (16:46)
[2021-01-25 03:05] VITALS: BP 102/53
[2021-01-25 04:30] LABS: HEMATOCRIT 23.5 % (39.0-53.0); RED BLOOD COUNT 2.34 x10^6/uL (4.30-5.70); RED CELL DISTRIBUTION WIDTH 14.9 % (11.5-14.5)
[2021-01-25 04:56] LABS: ALBUMIN 1.8 g/dL (3.4-5.0); ALBUMIN/GLOBULIN RATIO 0.6 (1.0-1.7); CALCIUM 7.2 mg/dL (8.5-10.1); CREATININE 0.8 mg/dL (0.7-1.3); GFR 102.7; POTASSIUM 3.4 mmol/L (3.5-5.1); TOTAL BILIRUBIN 1.2 mg/dL (0.2-1.0); TOTAL PROTEIN 4.6 g/dL (6.4-8.2)
[2021-01-25 07:00] VITALS: BP 97/52
[2021-01-25] MEDS: PANTOPRAZOLE 40 MG TABLET.DR. PO SCH ×2 (08:45→17:47)
--- NOTE | 2021-01-25 10:48 | PDOC ---
Date of Service: DATE: 01/25/21 TIME: 10:43 Subjective: Subjective: No bleeding. Hungry. "Little" abdominal pain. Objective: Objective: D/w nurse - pt has been asking and asking to eat more. Vital Signs: Vital Signs Date Time Temp Pulse Resp B/P (MAP) Pulse Ox O2 Delivery O2 Flow Rate FiO2 01/25/21 07:00 97.8 74 19 97/52 (67) 98 Room Air 97.8 01/25/21 00:00 2.0 Labs: Laboratory Tests Test 01/24/21 11:25 01/25/21 03:50 White Blood Count 2.9 x10^3/uL 3.0 x10^3/uL Red Blood Count 2.27 x10^6/uL 2.34 x10^6/uL Hemoglobin 7.8 g/dL 8.0 g/dL Hematocrit 23.2 % 23.5 % Mean Corpuscular Volume 102 fL 101 fL Mean Corpuscular Hemoglobin 34 pg 34 pg Mean Corpuscular Hemoglobin Concent 34 g/dL 34 g/dL Red Cell Distribution Width 15.5 % 14.9 % Platelet Count 68 x10^3/uL 64 x10^3/uL Sodium Level 140 mmol/L Potassium Level 3.4 mmol/L Chloride Level 109 mmol/L Carbon Dioxide Level 26 mmol/L Anion Gap 5 Blood Urea Nitrogen 12 mg/dL Creatinine 0.8 mg/dL Estimated GFR (Cockcroft-Gault) 102.7 BUN/Creatinine Ratio 15 Glucose Level 75 mg/dL Calcium Level 7.2 mg/dL Total Bilirubin 1.2 mg/dL Aspartate Amino Transf (AST/SGOT) 133 U/L Alanine Aminotransferase (ALT/SGPT) 143 U/L Alkaline Phosphatase 77 U/L Total Protein 4.6 g/dL Albumin 1.8 g/dL Albumin/Globulin Ratio 0.6 Imaging: EGD 01/24 E--Grade D reflux esophagitis from 28-35 cm. NO VARICES. G--Diffuse portal gastropathy with mild oozing in spots. Tiny prepyloric ulcer with clean base. Antral biopsies taken. No gastric varices. D--Normal to second portion. IMP: Severe reflux esophagitis. Portal gastropathy. Tiny prepyloric ulcer. REC: Stop octreotide. PO PPI/clears. Out of ICU OK. Monitor for bleeding. Await biopsies. PE: GEN: NAD - was sleeping soundly - bit difficult to rouse LUNGS: CTAB HEART: RRR ABD: NABS, S/ND/NT NEURO/PSYCH: A & O 3 A/P: Hematemesis, melena - no recurrence Pancytopenia, coagulopathy, abnormal LFTs Cirrhosis Severe reflux esophagitis, portal gastropathy w/ some oozing, small prepyloric ulcer - path pending - no varices Hep C Ab + (PCR pending) Rapid COVID negative -- ADAT. Continue PPI. Plans to transfer out of ICU - awaiting bed. Justicifation of Admission Dx: Justifications for Admission: Justification of Admission Dx: Yes JOHN HAN Jan 25, 2021 10:48
[2021-01-25 11:00] VITALS: BP 110/75
--- NOTE | 2021-01-25 11:12 | NUR ---
SS following for discharge planning. SS reviewed pt chart and discussed with pt RN. Pt is from home and is currently on room air. COVID19 negative. EGD on 01/23/2021. Pt has history of substance use and ETOH. PAT team referral made for assessment and recommendations. Advancing diet as tolerated. Pt currently on Full liquid diet. SS will continue to follow for discharge planning.
--- NOTE | 2021-01-25 11:33 | PDOC ---
[facility] PROGRESS NOTE Date of Service DOS: DATE: 01/25/21 TIME: 11:31 Chief Complaint Chief Complaint GI bleed Alcoholic cirrhosis EtOH Schizophrenia History of head trauma History of Present Illness History of Present Illness 01/25/2021 Patient seen and examined in the ICU He is a little more alert today Chart reviewed Discussed with RN 01/24/2021 Patient seen and examined in the ICU He remains pleasantly confused Discussed with RN Chart reviewed Had an EGD today with the below results IMP: Severe reflux esophagitis. Portal gastropathy. Tiny prepyloric ulcer. REC: Stop octreotide. PO PPI/clears. Out of ICU OK. Monitor for bleeding. Await biopsies. Vitals/I&O Vitals/I&O: Vital Signs Date Time Temp Pulse Resp B/P (MAP) Pulse Ox O2 Delivery O2 Flow Rate FiO2 01/25/21 07:00 97.8 74 19 97/52 (67) 98 Room Air 97.8 01/25/21 00:00 2.0 I & O 01/24/21 01/24/21 01/25/21 15:00 23:00 07:00 Intake Total 1679.46 ml 120 ml Output Total 300 ml Balance 1679.46 ml -180 ml Physical Exam General: Alert Heart: Regular rate Lungs: Clear Abdomen: Normal bowel sounds Extremities: No clubbing Skin: No rashes Labs Labs: Laboratory Tests Test 01/25/21 03:50 White Blood Count 3.0 x10^3/uL (4.0-11.0) Red Blood Count 2.34 x10^6/uL (4.30-5.70) Hemoglobin 8.0 g/dL (13.0-17.5) Hematocrit 23.5 % (39.0-53.0) Mean Corpuscular Volume 101 fL (79-100) Mean Corpuscular Hemoglobin 34 pg (25-35) Mean Corpuscular Hemoglobin Concent 34 g/dL (31-37) Red Cell Distribution Width 14.9 % (11.5-14.5) Platelet Count 64 x10^3/uL (140-400) Sodium Level 140 mmol/L (136-145) Potassium Level 3.4 mmol/L (3.5-5.1) Chloride Level 109 mmol/L (98-107) Carbon Dioxide Level 26 mmol/L (21-32) Anion Gap 5 (6-14) Blood Urea Nitrogen 12 mg/dL (8-26) Creatinine 0.8 mg/dL (0.7-1.3) Estimated GFR (Cockcroft-Gault) 102.7 BUN/Creatinine Ratio 15 (6-20) Glucose Level 75 mg/dL (70-99) Calcium Level 7.2 mg/dL (8.5-10.1) Total Bilirubin 1.2 mg/dL (0.2-1.0) Aspartate Amino Transf (AST/SGOT) 133 U/L (15-37) Alanine Aminotransferase (ALT/SGPT) 143 U/L (16-63) Alkaline Phosphatase 77 U/L (46-116) Total Protein 4.6 g/dL (6.4-8.2) Albumin 1.8 g/dL (3.4-5.0) Albumin/Globulin Ratio 0.6 (1.0-1.7) Assessment and Plan Assessmemt and Plan Problems Medical Problems: (1) Esophageal varices in alcoholic cirrhosis Status: Acute (2) GI bleed Status: Acute GI bleed Alcoholic cirrhosis EtOH Schizophrenia History of head trauma EGD with the following result IMP: Severe reflux esophagitis. Portal gastropathy. Tiny prepyloric ulcer. Plan ICU monitoring Trend hemoglobin Per GI see the following recommendations and we agree REC: Stop octreotide. PO PPI/clears. Out of ICU OK. Monitor for bleeding. Await biopsies. Home meds DVT prophylaxis Full code Hope to discharge soon when okay with GI Comment Review of Relevant I have reviewed the following items reese (where applicable) has been applied. Medications: Current Medications Medications (Trade) Dose Ordered Sig/Josefa Route PRN Reason Start Time Stop Time Status Last Admin Dose Admin Pantoprazole Sodium (Protonix) 40 mg BIDAC PO 01/24/21 16:30 01/25/21 08:45 Justifications for Admission General Conditions Other justification for admit: Upper GI bleed, hematemesis, alcohol withdrawal Other Justification ZARA WALLIS III DO Jan 25, 2021 11:32
[2021-01-25] MEDS: MORPHINE SULFATE 2 MG/ML INJ. IV PRN ×5 (11:46→20:53)
[2021-01-25 14:55] VITALS: BP 118/69
--- NOTE | 2021-01-25 18:08 | PATHOLOGY ---
[facility] Accession Number: [id number] . 01 Material submitted: . stomach - ANTRUM BIOPSY . 01 Clinical history: . HEMATEMESIS EGD . . 02 Diagnosis: Gastric biopsies, antrum: - Chronic gastritis, moderate. . (JPM:mm; 01/25/2021) [facility] 01/25/2021 1343 Local . 02 Comment: Sections of the gastric antral biopsy show superficial mucosa edema and focally active moderate chronic inflammation. There are a few scattered ectatic capillaries within the lamina propria. A properly-controlled immunoperoxidase stain for Helicobacter is negative for Helicobacter organisms. There is no evidence of malignancy. . Special stain: Immunoperoxidase stain for Helicobacter . (JPM:mml; 01/25/2021) . 02 Electronically signed: . Mario Armstrong MD, Pathologist NPI- [id number] . 01 Gross description: . The specimen is submitted in formalin, labeled "Kermit Juárez, antrum biopsy". Received are 2 segments of pale garcia tissue ranging in size from 0.3 to 0.4 cm in maximum dimensions. The specimen is submitted entirely in cassette A1. ([facility]; 01/24/2021) NRI/NRI 01/24/20212048 Local . 02 Pathologist provided ICD-10: K29.50 . 02 CPT . 645340, [id number] Specimen Comment: A courtesy copy of this report has been sent to [phone] Specimen Comment: [id number] Specimen Comment: Report sent to / DR HAYNES Specimen Comment: A duplicate report has been generated due to demographic updates. Performed at: [address] [place] [address] [address], [place], [place] [id number] MD Anil Mahoney MD Phone: [phone] Performed at: [address] [id number] MD Mario Armstrong MD Phone: [phone]
[2021-01-25 19:00] VITALS: BP 108/69
[2021-01-25] MEDS: diphenhydrAMINE 50 MG/ML VIAL IVP PRN (20:53)
[2021-01-25 23:00] VITALS: BP 94/43
[2021-01-26 03:00] VITALS: BP 106/52
[2021-01-26 07:00] VITALS: BP 96/45
[2021-01-26] MEDS: PANTOPRAZOLE 40 MG TABLET.DR. PO SCH ×2 (07:30→17:06)
--- NOTE | 2021-01-26 09:04 | PDOC ---
[facility] PROGRESS NOTE Date of Service DOS: DATE: 01/26/21 TIME: 08:58 Chief Complaint Chief Complaint GI bleed Alcoholic cirrhosis EtOH Schizophrenia History of head trauma History of Present Illness History of Present Illness 01/26/2021: Patient seen and examined. Pt reports that he had a good night of sleep however experienced mild chest pain and SOA that is not currently present. He is resting comfortably watching TV. He denies any abdominal discomfort, nausea, or vomiting Of note, pt states that his drink of choice is Jalil Hines Whisky, with his last drink occurring on 01/22/2021. Chart reviewed Discussed with RN 01/25/2021 Patient seen and examined in the ICU He is a little more alert today Chart reviewed Discussed with RN 01/24/2021 Patient seen and examined in the ICU He remains pleasantly confused Discussed with RN Chart reviewed Had an EGD today with the below results IMP: Severe reflux esophagitis. Portal gastropathy. Tiny prepyloric ulcer. REC: Stop octreotide. PO PPI/clears. Out of ICU OK. Monitor for bleeding. Await biopsies. Vitals/I&O Vitals/I&O: Vital Signs Date Time Temp Pulse Resp B/P (MAP) Pulse Ox O2 Delivery O2 Flow Rate FiO2 01/26/21 07:00 98.3 83 16 96/45 (62) 94 Room Air 98.3 01/25/21 18:26 2.0 I & O 01/25/21 01/25/21 01/26/21 15:00 23:00 07:00 Intake Total 450 ml 150 ml Balance 450 ml 150 ml Physical Exam General: Alert, Oriented X3, Cooperative Heart: Regular rate, Normal S1, Normal S2 Lungs: Clear Abdomen: Normal bowel sounds, Soft, No tenderness, No hepatosplenomegaly Extremities: No clubbing Skin: No rashes, No significant lesion Review of Systems Review of Systems: Fatigue SOA Assessment and Plan Assessmemt and Plan Problems Medical Problems: (1) Esophageal varices in alcoholic cirrhosis Status: Acute (2) GI bleed Status: Acute GI bleed Alcoholic cirrhosis EtOH Schizophrenia History of head trauma EGD with the following result IMP: Severe reflux esophagitis. Portal gastropathy. Tiny prepyloric ulcer. Plan: Trend hemoglobin (8 yesterday) and other labs (Plt 64 today) Plt 64 today) Monitor for bleeding. Awaiting biopsies. Appreciate subspecialist input (GI and PAT) Home meds DVT prophylaxis Full code Discharge likely tomorrow pending hemoglobin and GI recommendations Comment Review of Relevant I have reviewed the following items reese (where applicable) has been applied. Justifications for Admission General Conditions Other justification for admit: Upper GI bleed, hematemesis, alcohol withdrawal Other Justification ZARA WALLIS III DO Jan 26, 2021 09:04
--- NOTE | 2021-01-26 10:17 | PDOC ---
Date of Service: DATE: 01/26/21 TIME: 10:11 Subjective: Subjective: Tolerating diet "slowly but surely." No bleeding. Gives h/o Hep C. Has tried to stop drinking in the past - "I just do it on my own." Objective: Vital Signs: Vital Signs Date Time Temp Pulse Resp B/P (MAP) Pulse Ox O2 Delivery O2 Flow Rate FiO2 01/26/21 07:50 Room Air 2.0 01/26/21 07:00 98.3 83 16 96/45 (62) 94 98.3 Labs: Material submitted: . stomach - ANTRUM BIOPSY Clinical history: . HEMATEMESIS EGD Diagnosis: Gastric biopsies, antrum: - Chronic gastritis, moderate. Comment: Sections of the gastric antral biopsy show superficial mucosa edema and focally active moderate chronic inflammation. There are a few scattered ectatic capillaries within the lamina propria. A properly-controlled immunoperoxidase stain for Helicobacter is negative for Helicobacter organisms. There is no evidence of malignancy. PE: GEN: NAD - was sleeping LUNGS: CTAB HEART: RRR ABD: S/ND/NT NEURO/PSYCH: A & O 3 A/P: Hematemesis, melena - resolved Cirrhosis w/ pancytopenia, coagulopathy, abnormal LFTs, Hep C Ab + ---> Hgb, iron, and Hep C PCR pending today Severe reflux esophagitis, portal gastropathy, small prepyloric ulcer - path as above Rapid COVID negative -- Await pending labs. Continue PPI. Justicifation of Admission Dx: Justifications for Admission: Justification of Admission Dx: Yes JOHN HAN Jan 26, 2021 10:17
--- NOTE | 2021-01-26 10:24 | NUR ---
SW following. Discussed with RN, pt from home, room air, GI soft, rapid COVID-19 negative. GI following. Bailey (PAT) met with pt, pt denied substance use other than alcohol. Pt is currently engaged with [facility]. Pt will follow up with his community case manager prior to discharge to make an appointment. SW will continue to follow.
[2021-01-26 11:00] VITALS: BP 100/52
[2021-01-26 15:00] VITALS: BP 98/56
[2021-01-26 15:14] LABS: HCV ULTRA QUANT PCR 1210000 IU/mL (.)
[2021-01-26] MEDS: MORPHINE SULFATE 2 MG/ML INJ. IV PRN (17:46)
[2021-01-26 19:00] VITALS: BP 100/55
[2021-01-26] MEDS: diphenhydrAMINE 50 MG/ML VIAL IVP PRN (19:52)
[2021-01-26 23:00] VITALS: BP 107/51
[2021-01-27] MEDS: MORPHINE SULFATE 2 MG/ML INJ. IV PRN ×4 (01:18→16:03)
[2021-01-27] MEDS: MORPHINE SULFATE 4 MG/ML INJ. IVP PRN (02:57)
[2021-01-27 03:00] VITALS: BP 110/58
[2021-01-27 07:00] VITALS: BP 91/47
[2021-01-27] MEDS: PANTOPRAZOLE 40 MG TABLET.DR. PO SCH (09:19)
[2021-01-27] MEDS ORDERED: TRAM-48 PO (10:34)
[2021-01-27] MEDS ORDERED: PANT40TA77 PO (10:34)
--- NOTE | 2021-01-27 10:36 | PDOC ---
Date of Service: DATE: 01/27/21 TIME: 10:34 Subjective: Subjective: Feeling better, ready to go home. No bleeding. Objective: Vital Signs: Vital Signs Date Time Temp Pulse Resp B/P (MAP) Pulse Ox O2 Delivery O2 Flow Rate FiO2 01/27/21 09:19 97 Room Air 2.0 01/27/21 07:00 98.4 82 18 91/47 (62) 98.4 PE: GEN: NAD - mostly playing on phone, no eye contact LUNGS: CTAB HEART: RRR ABD: S/ND/NT NEURO/PSYCH: A & O 3 A/P: Hematemesis, melena - resolved Cirrhosis w/ pancytopenia (iron deficient), coagulopathy, abnormal LFTs - alcohol and Hep C Severe reflux esophagitis, portal gastropathy, small prepyloric ulcer - path benign Rapid COVID negative -- DC per primary on PPI - d/w nurse. Consider addition of iron. Follow-up re: screening colonoscopy and Hep C treatment. Stop alcohol. Justicifation of Admission Dx: Justifications for Admission: Justification of Admission Dx: Yes JOHN HAN Jan 27, 2021 10:36
--- NOTE | 2021-01-27 10:57 | PDOC3 ---
[facility]-Discharge Summary Date of Discharge: Date of Discharge: Jan 27, 2021 Admission Diagnosis: Admitting Diagnosis: GI bleed Alcohol abuse Discharge Diagnosis: Discharge Diagnosis: Resolving GI bleed Hematemesis, melena - resolved Cirrhosis w/ pancytopenia (iron deficient), coagulopathy, abnormal LFTs - alcohol and Hep C Severe reflux esophagitis, portal gastropathy, small prepyloric ulcer - path benign Rapid COVID negative Consults: Consults: GI Hospital Course: Hospital Course: Patient is a middle-aged male who drinks too much and has hep C He was admitted with GI bleeding We placed him on IV proton pump inhibitors and octreotide and we transfused him Today I saw and examined his hemoglobin stable above 8 He wants to go home GI is okay with discharging we plan to discharge home Activity: Activity: Resume previous activity Medications: Home Meds Active Scripts Tramadol Hcl (ULTRAM) 50 Mg Tablet, 1 TAB PO PRN Q6HRS PRN for pain MDD 4 Tablet(s) for 7 Days, #28 TAB 0 Refills Prov:ZARA WALLIS III DO 01/27/21 Azithromycin (ZITHROMAX) 250 Mg Tablet, 1 PKG PO UD, #6 TAB Prov:CYNDEE TENORIO Jr. DO 05/16/19 Diclofenac Sodium (DICLOFENAC SODIUM) 50 Mg Tablet.dr, 1 TAB PO BID PRN for PAIN, #20 TAB Prov:CYNDEE TENORIO Jr. DO 05/16/19 Reported Medications Melatonin (Melatonin) 3 Mg Capsule, 3 MG PO PRN BFRMEALHC PRN for INSOMNIA, CAP 01/24/21 Olanzapine (OLANZAPINE) Unknown Strength Tablet, PO QHS for Agitation 01/24/21 Clonazepam (Clonazepam) Unknown Strength Tablet, PO PRN BID PRN for ANXIETY / AGITATION 01/24/21 Scheduled Azithromycin (Zithromax), 1 PKG PO UD Olanzapine (Olanzapine), Unknown Dose PO QHS, (Reported) Scheduled PRN Clonazepam (Clonazepam), Unknown Dose PO PRN BID PRN for ANXIETY / AGITATION, (Reported) Diclofenac Sodium (Diclofenac Sodium), 1 TAB PO BID PRN for PAIN Melatonin (Melatonin), 3 MG PO PRN BFRMEALHC PRN for INSOMNIA, (Reported) Tramadol Hcl (Ultram), 1 TAB PO PRN Q6HRS PRN for pain Justicifation of Admission Dx: Justifications for Admission: Justification of Admission Dx: Yes ZARA WALLIS III DO Jan 27, 2021 10:57
--- NOTE | 2021-01-27 11:03 | PDOC ---
[facility] PROGRESS NOTE Date of Service DOS: DATE: 01/27/21 TIME: 10:56 Chief Complaint Chief Complaint GI bleed Alcoholic cirrhosis EtOH Schizophrenia History of head trauma EGD with the following result IMP: Severe reflux esophagitis. Portal gastropathy. Tiny prepyloric ulcer Hepatitis C History of Present Illness History of Present Illness 01/27/2021: Patient seen and examined. He states that he is ready to be discharged after medications are arranged. Pt is resting comfortably watching TV and asking for lunch prior to discharge. Discussed labs with pt. Chart reviewed Discussed with RN 01/26/2021: Patient seen and examined. Pt reports that he had a good night of sleep however experienced mild chest pain and SOA that is not currently present. He is resting comfortably watching TV. He denies any abdominal discomfort, nausea, or vomiting Of note, pt states that his drink of choice is Jalil Hines Whisky, with his last drink occurring on 01/22/2021. Chart reviewed Discussed with RN 01/25/2021 Patient seen and examined in the ICU He is a little more alert today Chart reviewed Discussed with RN 01/24/2021 Patient seen and examined in the ICU He remains pleasantly confused Discussed with RN Chart reviewed Had an EGD today with the below results IMP: Severe reflux esophagitis. Portal gastropathy. Tiny prepyloric ulcer. REC: Stop octreotide. PO PPI/clears. Out of ICU OK. Monitor for bleeding. Await biopsies. Vitals/I&O Vitals/I&O: Vital Signs Date Time Temp Pulse Resp B/P (MAP) Pulse Ox O2 Delivery O2 Flow Rate FiO2 01/27/21 09:19 97 Room Air 2.0 01/27/21 07:00 98.4 82 18 91/47 (62) 98.4 I & O 01/26/21 01/26/21 01/27/21 15:00 23:00 07:00 Intake Total 100 ml Balance 100 ml Physical Exam General: Alert, Oriented X3, Cooperative, No acute distress Heart: Regular rate, Normal S1, Normal S2 Lungs: Clear Abdomen: Normal bowel sounds, Soft, No tenderness, No hepatosplenomegaly Extremities: No clubbing Skin: No rashes, No significant lesion Review of Systems Review of Systems: Anemia (Hgb 8.3) EtOH use Assessment and Plan Assessmemt and Plan Problems Medical Problems: (1) Esophageal varices in alcoholic cirrhosis Status: Acute (2) GI bleed Status: Acute GI bleed Alcoholic cirrhosis EtOH Schizophrenia History of head trauma EGD with the following result IMP: Severe reflux esophagitis. Portal gastropathy. Tiny prepyloric ulcer. Hepatitis C Plan: Appreciate subspecialist input (GI and PAT) Monitor for bleeding. Trend labs (Hgb 8.3 today, infectious serologies and biopsy reviewed) Home meds DVT prophylaxis Encourage PO intake Full code Likely DC today, pending outpatient arrangements, medications, and subspecialist input Comment Review of Relevant I have reviewed the following items reese (where applicable) has been applied. Justifications for Admission General Conditions Other justification for admit: Upper GI bleed, hematemesis, alcohol withdrawal Other Justification ZARA WALLIS III DO Jan 27, 2021 11:03
[2021-01-27 11:05] VITALS: BP 94/57
[2021-01-27 15:00] VITALS: BP 103/55
--- NOTE | 2021-01-27 16:09 | NUR ---
Discharge Note: BENTLEY SHERMAN [address] [place] [address] Discharge instructions and discharge home medications reviewed with Patient and a copy given. All questions have been answered and understanding verbalized. The following instructions and handouts were given: Diet, activity medication list and follow up instructions provided. Discontinued lines and drains: Peripheral IV discontinued and catheter intact. Patient discharged to Home or Self Care with Family Member via Wheelchair
== END 2021-01-27 16:11 | disposition home or self-care (01) | DRG 368 ==
LOC: ER 11:20 → 1 WEST ICU 14:15 → ED HOLD 14:32 → 1 WEST ICU 17:53 → 4 NORTH 01-25 15:26
PROVIDERS: ADMIT Family Medicine; ATTEND Family Medicine
PROC: 0DB68ZX Excision of Stomach, Via Natural or Artificial Opening Endoscopic, Diagnostic (ICD-10-PCS; principal; 2021-01-24 14:30)
DX: K21.01 Gastro-esophageal reflux disease with esophagitis, with bleeding (principal); K25.4 Chronic or unspecified gastric ulcer with hemorrhage; E43 Unspecified severe protein-calorie malnutrition; D61.818 Other pancytopenia; D68.9 Coagulation defect, unspecified; F20.9 Schizophrenia, unspecified; B19.20 Unspecified viral hepatitis C without hepatic coma; E61.1 Iron deficiency; F10.10 Alcohol abuse, uncomplicated; F17.210 Nicotine dependence, cigarettes, uncomplicated; K31.89 Other diseases of stomach and duodenum; K70.30 Alcoholic cirrhosis of liver without ascites; Y90.0 Blood alcohol level of less than 20 mg/100 ml; Z20.822 Contact with and (suspected) exposure to COVID-19; Z87.828 Personal history of other (healed) physical injury and trauma; F41.9 Anxiety disorder, unspecified; Z88.0 Allergy status to penicillin
CPT/HCPCS: 36415; 43239; 70450; 71045; 74177; 80048; 80053; 80307; 81001; 82140; 83540; 83550; 83690; 83735; 84484; 85018; 85025; 85027; 85610; 85730; 86705; 86709; 86803; 86850; 86900; 86901; 87340; 87426; 87522; 88305; 88342; 93005; 96361; 96365; 96375; C9113; G0480; J1200; J2060; J2270; J2354; J2405; J2704; J2765; J3010; J3411; J3490; J7030; Q9967; 99285-25; G0378

== ENCOUNTER 2021-02-12 19:09 | Inpatient (IN) | payer MEDICAID ==
[~2021-02-12] VITALS: Ht 172.7 cm; Wt 67.1 kg
[~2021-02-12 19:09] MED LIST changes: +CLON0.5T4 PO; +MELA3CAP2 PO; +OLAN20TA15 PO; +PANT40TA77 PO; +TRAM-48 PO
[2021-02-12] MEDS ORDERED: ONDANSETRON PF 4 MG/2 ML VIAL. IVP ONE (19:45)
[2021-02-12] MEDS ORDERED: fentaNYL PF VIAL 100 MCG/2 ML VIAL IVP ONE (19:45)
--- NOTE | 2021-02-12 19:46 | PHYS DOC ---
Past Medical History Past Medical History: Anxiety, Hepatitis, Schizophrenia, Other Additional Past Medical Histor: TRAUMATIC BRAIN INJURY, BRAIN BLEEDS X 2 Past Surgical History: No Surgical History, Other Additional Past Surgical Histo: jaw fracture repair,back surg nos Smoking Status: Current Every Day Smoker Alcohol Use: Heavy Drug Use: None, Other General Adult EDM: Chief Complaint: ABDOMINAL PAIN HPI: HPI: 50-year-old male with history of TBI, schizophrenia, chronic alcohol abuse presents the emergency department complaining of abdominal distention with pain with gradual onset over the last 4 days. He reports pain is diffuse across his abdomen, does not radiate and is not made better by anything. He has noticed his abdomen is slowly grown in size during this time. Associated with mild nausea, no vomiting, no stool changes reported. He was recently admitted to the hospital for an upper and lower GI bleed and he believes he has cirrhosis from alcohol abuse. He still drinks alcohol drinking approximately 5 drinks per day which he states is lower than his previous consumption. The patient denies fever, chills, chest pain, shortness of breath, urinary symptoms, cough, recent trauma, or any other complaints. Review of Systems: Review of Systems: Constitutional: Negative except what was mentioned in HPI. Eyes: Negative except what was mentioned in HPI. HENT: Negative except what was mentioned in HPI. Respiratory: Negative except what was mentioned in HPI. Cardiovascular: Negative except what was mentioned in HPI. GI: Negative except what was mentioned in HPI. : Negative except what was mentioned in HPI. Musculoskeletal: Negative except what was mentioned in HPI. Integument: Negative except what was mentioned in HPI. Neurologic: Negative except what was mentioned in HPI. Endocrine: Negative except what was mentioned in HPI. Lymphatic: Negative except what was mentioned in HPI. Psychiatric: Negative except what was mentioned in HPI. Heart Score: C/O Chest Pain: No Current Medications: Current Medications Medications (Trade) Dose Ordered Sig/Josefa Start Time Stop Time Status Last Admin Dose Admin Fentanyl Citrate (Fentanyl 2ml Vial) 75 mcg 1X ONCE 02/12/21 19:45 02/12/21 19:46 Ondansetron HCl (Zofran) 4 mg 1X ONCE 02/12/21 19:45 02/12/21 19:46 Allergies: Allergies: Allergies Coded Allergies Type Severity Reaction Last Updated Verified Penicillins Allergy Intermediate rash 01/24/21 Yes Physical Exam: PE: Constitutional: No acute distress, non-toxic appearance. HENT: Atraumatic, bilateral external ears normal, nose normal. Eyes: PERRLA, EOMI, conjunctiva normal, no discharge. Neck: Normal range of motion, supple, no stridor. Cardiovascular: Heart rate regular rhythm. 2+ radial pulses Lungs & Thorax: No respiratory distress, symmetrical expansion. Abdomen: Abdominal distention noted with diffuse tenderness and positive fluid wave Skin: Warm, dry. Extremities: No tenderness, no cyanosis, ROM intact, no edema. Neurologic: Alert and oriented X 3, normal motor function, normal sensory function, no focal deficits noted. Non ataxic gait. GCS 15. Psychologic: Bizarre affect, delusions. Current Patient Data: Labs: Laboratory Tests Test 02/12/21 19:40 White Blood Count 4.6 x10^3/uL (4.0-11.0) Red Blood Count 3.19 x10^6/uL (4.30-5.70) Hemoglobin 9.8 g/dL (13.0-17.5) Hematocrit 29.4 % (39.0-53.0) Mean Corpuscular Volume 92 fL (79-100) Mean Corpuscular Hemoglobin 31 pg (25-35) Mean Corpuscular Hemoglobin Concent 34 g/dL (31-37) Red Cell Distribution Width 19.6 % (11.5-14.5) Platelet Count 167 x10^3/uL (140-400) Neutrophils (%) (Auto) 46 % (31-73) Lymphocytes (%) (Auto) 29 % (24-48) Monocytes (%) (Auto) 17 % (0-9) Eosinophils (%) (Auto) 8 % (0-3) Basophils (%) (Auto) 1 % (0-3) Neutrophils # (Auto) 2.1 x10^3/uL (1.8-7.7) Lymphocytes # (Auto) 1.3 x10^3/uL (1.0-4.8) Monocytes # (Auto) 0.8 x10^3/uL (0.0-1.1) Eosinophils # (Auto) 0.4 x10^3/uL (0.0-0.7) Basophils # (Auto) 0.0 x10^3/uL (0.0-0.2) Sodium Level 138 mmol/L (136-145) Potassium Level 3.4 mmol/L (3.5-5.1) Chloride Level 104 mmol/L (98-107) Carbon Dioxide Level 29 mmol/L (21-32) Anion Gap 5 (6-14) Blood Urea Nitrogen 7 mg/dL (8-26) Creatinine 0.9 mg/dL (0.7-1.3) Estimated GFR (Cockcroft-Gault) 89.7 BUN/Creatinine Ratio 8 (6-20) Glucose Level 79 mg/dL (70-99) Calcium Level 7.7 mg/dL (8.5-10.1) Total Bilirubin 0.7 mg/dL (0.2-1.0) Aspartate Amino Transf (AST/SGOT) 81 U/L (15-37) Alanine Aminotransferase (ALT/SGPT) 86 U/L (16-63) Alkaline Phosphatase 145 U/L (46-116) Total Protein 6.1 g/dL (6.4-8.2) Albumin 2.2 g/dL (3.4-5.0) Albumin/Globulin Ratio 0.6 (1.0-1.7) Lipase 234 U/L (73-393) Acetaminophen Level < 2 mcg/ml (10-30) Acetaminophen Last Dose Date Acetaminophen Last Dose Time Ethyl Alcohol Level < 10 mg/dL (0-10) Vital Signs: Vital Signs Date Time Temp Pulse Resp B/P (MAP) Pulse Ox O2 Delivery O2 Flow Rate FiO2 02/12/21 19:20 99.3 76 18 127/56 (79 98 99.3 Radiology/Procedures: Radiology/Procedures: [facility] [address] [place] [address] IMAGING REPORT Signed PATIENT: BENTLEY SHERMAN ACCOUNT: [id number] : 1970 LOCATION: ER AGE: 50 SEX: M EXAM STATUS: REG ER ORD. PHYSICIAN: MIKO NAVARRO DO REASON: abd distension and pain X2 WKS OMNI 300 75 ML IV PROCEDURE: CT ABD PELV W/ IV CONTRST ONLY CT ABDOMEN+PELVIS W History: abd distension and pain X2 WKS Comparison: 01/23/2021 Technique: After administration of intravenous contrast, helical CT of the abdomen and pelvis was performed from the lung bases through the ischial tuberosities. Coronal and sagittal reconstructions were obtained. 75 mL of Omnipaque 300 were used. One or more of the following dose reduction techniques were utilized: Automated exposure control (AEC), Adjustment of mA and/or kV according to patient size, Use of iterative reconstruction technique such as ASiR, CT scan done according to ALARA and image gently/image wisely Abdomen Findings: The visualized lung bases are clear. Moderate to large amount of abdominopelvic ascites. Cirrhotic morphology of the liver. No focal hepatic lesion. Gallbladder, pancreas, spleen, and bilateral adrenal glands are normal. Symmetric renal enhancement. There is no hydronephrosis. Unchanged distal esophageal wall thickening. Gastroesophageal varices. No evidence of obstruction. Colonic diverticulosis. There is no mesenteric or retroperitoneal adenopathy. The abdominal aorta is normal in caliber. Pelvis Findings: Urinary bladder is decompressed. No pelvic free fluid. There is no pelvic or inguinal adenopathy. There is no acute bony abnormality. IMPRESSION: Moderate to large amount of abdominal ascites. Hepatic cirrhosis and findings of portal venous hypertension. Electronically signed by: Gem Rosales MD (02/12/2021 9:05 PM) [facility] DICTATED and SIGNED BY: GEM ROSALES MD DATE: 02/12/[id number] 0 Course & Med Decision Making: Course & Med Decision Making History physical and objective findings are consistent with alcoholic cirrhosis with ascites. Patient will likely need a paracentesis for symptomatic relief. Patient stable clinically and will be admitted to Dr. Adams for further care. Patient is amenable to the plan Departure Departure Impression: Primary Impression: Alcoholic cirrhosis of liver with ascites Disposition: ADMITTED INPATIENT (med/surg) Admitting Physician: ANDREW Dalal) Referrals: NO PCP (PCP) MIKO NAVARRO DO Feb 12, 2021 19:46
[2021-02-12 20:03] LABS: BASO % 1 % (0-3); EOS # 0.4 x10^3/uL (0.0-0.7); EOS % 8 % (0-3); HEMATOCRIT 29.4 % (39.0-53.0); HEMOGLOBIN 9.8 g/dL (13.0-17.5); LYMPH # 1.3 x10^3/uL (1.0-4.8); LYMPH % 29 % (24-48); MEAN CORPUSCULAR HEMOGLOBIN 31 pg (25-35); MEAN CORPUSCULAR HGB CONC 34 g/dL (31-37); MEAN CORPUSCULAR VOLUME 92 fL (79-100); MONO # 0.8 x10^3/uL (0.0-1.1); MONO % 17 % (0-9); NEUT # 2.1 x10^3/uL (1.8-7.7); NEUT % 46 % (31-73); PLATELET COUNT 167 x10^3/uL (140-400); RED BLOOD COUNT 3.19 x10^6/uL (4.30-5.70); RED CELL DISTRIBUTION WIDTH 19.6 % (11.5-14.5); WHITE BLOOD COUNT 4.6 x10^3/uL (4.0-11.0)
[2021-02-12 20:14] LABS: CALCIUM 7.7 mg/dL (8.5-10.1); CREATININE 0.9 mg/dL (0.7-1.3); GFR 89.7; POTASSIUM 3.4 mmol/L (3.5-5.1)
[2021-02-12 20:15] LABS: ACETAMIN < 2 mcg/ml (10-30); ETHANOL < 10 mg/dL (0-10)
[2021-02-12] MEDS ORDERED: IOHEXOL 300 MG/ML 100ML VIAL. IV ONE (20:15)
[2021-02-12] MEDS ORDERED: CONTRAST GIVEN. MC PRN (20:15)
[2021-02-12 20:17] LABS: ALBUMIN 2.2 g/dL (3.4-5.0); ALBUMIN/GLOBULIN RATIO 0.6 (1.0-1.7); TOTAL BILIRUBIN 0.7 mg/dL (0.2-1.0); TOTAL PROTEIN 6.1 g/dL (6.4-8.2)
--- NOTE | 2021-02-12 21:07 | RAD ---
CT ABDOMEN+PELVIS W History: abd distension and pain X2 WKS Comparison: 01/23/2021 Technique: After administration of intravenous contrast, helical CT of the abdomen and pelvis was per formed from the lung bases through the ischial tuberosities. Coronal and sagittal reconstructions wer e obtained. 75 mL of Omnipaque 300 were used. One or more of the following dose reduction techniques were utilized: Automated exposure control (AEC), Adjustment of mA and/or kV according to patient size , Use of iterative reconstruction technique such as ASiR, CT scan done according to ALARA and image g ently/image wisely Abdomen Findings: The visualized lung bases are clear. Moderate to large amount of abdominopelvic ascites. Cirrhotic morphology of the liver. No focal hepat ic lesion. Gallbladder, pancreas, spleen, and bilateral adrenal glands are normal. Symmetric renal enhancement. There is no hydronephrosis. Unchanged distal esophageal wall thickening. Gastroesophageal varices. No evidence of obstruction. Co lonic diverticulosis. There is no mesenteric or retroperitoneal adenopathy. The abdominal aorta is normal in caliber. Pelvis Findings: Urinary bladder is decompressed. No pelvic free fluid. There is no pelvic or inguinal adenopathy. There is no acute bony abnormality. IMPRESSION: Moderate to large amount of abdominal ascites. Hepatic cirrhosis and findings of portal venous hypert ension. Electronically signed by: Crow Rosales MD (02/12/2021 9:05 PM) [facility]
[2021-02-12 21:29] LABS: BILIRUBIN,URINE NEGATIVE (NEG); CLARITY,URINE CLEAR; COLOR,URINE YELLOW; NITRITE,URINE NEGATIVE (NEG); PROTEIN,URINE NEGATIVE (NEG-TRACE)
[2021-02-12 21:36] LABS: BARBITURATES NEG (NEG); BENZODIAZEPINES NEG (NEG); CANNABINOIDS POS (NEG); COCAINE NEG (NEG); METHADONE NEG (NEG); OPIATES NEG (NEG); PHENCYCLIDINE NEG (NEG)
[2021-02-12 21:41] LABS: BACTERIA,URINE 0 /HPF (0-FEW)
[2021-02-12] MEDS ORDERED: ONDANSETRON PF 4 MG/2 ML VIAL. IVP PRN (21:45)
[2021-02-12 21:58] LABS: AMPHETAMINE/METHAMPHETAMINE NEG (NEG)
[2021-02-12] MEDS: chlordiazePOXIDE HCL 25 MG CAPSULE PO SCH (22:15)
[2021-02-12] MEDS: MULTIVITAMIN with MINERAL TABLET. PO SCH (22:15)
[2021-02-12] MEDS: MORPHINE SULFATE 4 MG/ML INJ. IVP PRN (23:05)
[2021-02-12 23:06] VITALS: BP 102/56
[2021-02-13] VITALS (8 sets, daily range): BP systolic 90–115; BP diastolic 46–77
[2021-02-13] MEDS: MAG HYDROX/ALUMINUM HYD/SIMETH 30 ML ORAL.SUSP PO PRN ×2 (00:39→13:36)
[2021-02-13] MEDS: chlordiazePOXIDE HCL 25 MG CAPSULE PO SCH (03:47)
[2021-02-13] MEDS: MORPHINE SULFATE 4 MG/ML INJ. IVP PRN ×2 (03:48→08:00)
[2021-02-13 07:46] LABS: BASO % 1 % (0-3); EOS # 0.3 x10^3/uL (0.0-0.7); EOS % 9 % (0-3); HEMATOCRIT 26.5 % (39.0-53.0); HEMOGLOBIN 8.9 g/dL (13.0-17.5); LYMPH # 1.2 x10^3/uL (1.0-4.8); LYMPH % 29 % (24-48); MEAN CORPUSCULAR HEMOGLOBIN 31 pg (25-35); MEAN CORPUSCULAR HGB CONC 34 g/dL (31-37); MEAN CORPUSCULAR VOLUME 93 fL (79-100); MONO # 0.7 x10^3/uL (0.0-1.1); MONO % 17 % (0-9); NEUT # 1.8 x10^3/uL (1.8-7.7); NEUT % 45 % (31-73); PLATELET COUNT 146 x10^3/uL (140-400); RED BLOOD COUNT 2.86 x10^6/uL (4.30-5.70); RED CELL DISTRIBUTION WIDTH 18.9 % (11.5-14.5)
[2021-02-13] MEDS: MULTIVITAMIN with MINERAL TABLET. PO SCH (07:59)
[2021-02-13] MEDS: PANTOPRAZOLE 40 MG TABLET.DR. PO SCH (07:59)
[2021-02-13 08:36] LABS: ALBUMIN 1.8 g/dL (3.4-5.0); ALBUMIN/GLOBULIN RATIO 0.5 (1.0-1.7); CALCIUM 7.5 mg/dL (8.5-10.1); CREATININE 0.9 mg/dL (0.7-1.3); GFR 89.7; POTASSIUM 3.7 mmol/L (3.5-5.1); TOTAL BILIRUBIN 0.6 mg/dL (0.2-1.0); TOTAL PROTEIN 5.4 g/dL (6.4-8.2)
[2021-02-13] MEDS ORDERED: FLU VACC QUAD 21-22 (6MOS+) PF 0.5 ML SYRINGE. VAX IM ONE (09:00)
[2021-02-13] MEDS ORDERED: ONDANSETRON PF 4 MG/2 ML VIAL. IVP PRN (10:15)
[2021-02-13] MEDS ORDERED: ELECTROLYTE (NON-ICU) PROTOCOL. MC PRN (10:15)
[2021-02-13] MEDS ORDERED: oxyCODONE/APAP 5/325 1 TAB TABLET PO PRN (10:15)
--- NOTE | 2021-02-13 10:22 | PDOC1 ---
History and Physical Date of Service: DOS: DATE: 02/13/21 TIME: 10:04 Chief Complaint: Problems: (1) Alcoholic cirrhosis of liver with ascites Chief Complain: Abdominal pain History of Present Illness: HPI: Patient is a 50-year-old male presented to the emergency room overnight due to worsening abdominal distention over the past 4 days. patient is a known alcoholic was actually seen here about 3 weeks ago for a GI bleed. He was supposed to be taking PPI at home however said he really only takes it intermittently. Since that discharge patient has been drinking at home still. About 5 drinks a day which is down from his previous consumption but still too much. Says of the abdomen has been just slowly growing progressively over the past few days. Reports that it is starting to get painful. Patient said he has never had swelling like this before. Denies any sort of history of paracenteses. Does report that he believes he was told he has alcoholic cirrhosis Evaluated patient at bedside he was resting in bed. Says the pain in his abdomen was still present. Was pretty anxious and fidgety may be some withdrawal signs. Informed him that we do need to perform a paracentesis on him and that I could do it today at the bedside or could do it tomorrow by IR. He said he did not really get any sleep last night was very very tired so he elected for tomorrow. Past Medical/Surgical History: PMH/PSH: Anxiety, hepatitis, TBI, schizophrenia, alcohol abuse Allergies: Allergies: Coded Allergies: Penicillins (Verified Allergy, Intermediate, rash, 01/24/21) Family History: Family History: Patient denied knowing any family history Social History: Social History: Daily tobacco smoker. Daily alcohol use currently at 5 drinks a day but reports it previously was much more than that. Does use marijuana occasionally Current Medications: Current Medications Current Medications Fentanyl Citrate (Fentanyl 2ml Vial) 75 mcg 1X ONCE IVP Last administered on 02/12/21at 20:00; Start 02/12/21 at 19:45; Stop 02/12/21 at 19:46; Status DC Ondansetron HCl (Zofran) 4 mg 1X ONCE IVP Last administered on 02/12/21at 20:00; Start 02/12/21 at 19:45; Stop 02/12/21 at 19:46; Status DC Iohexol (Omnipaque 300 Mg/ml) 75 ml 1X ONCE IV Last administered on 02/12/21at 20:41; Start 02/12/21 at 20:15; Stop 02/12/21 at 20:16; Status DC Info (CONTRAST GIVEN -- Rx MONITORING) 1 each PRN DAILY PRN MC SEE COMMENTS; Start 02/12/21 at 20:15; Stop 02/14/21 at 20:14 Ondansetron HCl (Zofran) 4 mg PRN Q8HRS PRN IVP NAUSEA/VOMITING 1ST CHOICE; Start 02/12/21 at 21:45; Stop 02/13/21 at 21:44 Morphine Sulfate (Morphine Sulfate) 4 mg PRN Q2HR PRN IVP SEVERE PAIN 7-10 Last administered on 02/13/21at 08:00; Start 02/12/21 at 21:45; Stop 02/13/21 at 21:44 Multivitamins (Thera M Plus) 1 tab DAILY PO Last administered on 02/13/21at 07:59; Start 02/12/21 at 22:00 Chlordiazepoxide (Librium) 25 mg Q6H PO Last administered on 02/13/21at 03:47; Start 02/12/21 at 22:00; Stop 02/13/21 at 10:00; Status DC Al Hydroxide/Mg Hydroxide (Mylanta Plus Xs) 30 ml PRN Q4HRS PRN PO HEARTBURN / GAS Last administered on 02/13/21at 00:39; Start 02/13/21 at 00:30 Pantoprazole Sodium (Protonix) 40 mg DAILYAC PO Last administered on 02/13/21at 07:59; Start 02/13/21 at 07:30 Influenza Virus Vaccine Quadrival (Flulaval Quad [id number] Syringe) 0.5 ml ONCE ONCE VAX IM ; Start 02/13/21 at 09:00; Stop 02/13/21 at 09:01; Status DC Multivitamins 10 ml/Thiamine HCl 100 mg/Folic Acid 1 mg/Sodium Chloride 1,011.2 ml @ 100 mls/ hr DAILY IV ; Start 02/13/21 at 10:00; Stop 02/17/21 at 19:07 Multivitamins (Thera M Plus) 1 tab DAILY PO ; Start 02/18/21 at 09:00 Folic Acid (Folic Acid) 1 mg DAILY PO ; Start 02/18/21 at 09:00 Thiamine Mononitrate (Vitamin B-1) 100 mg DAILY PO ; Start 02/18/21 at 09:00 Lorazepam (Ativan) 4 mg PRN Q1HR PRN PO For CIWA 8-14; Start 02/13/21 at 10:00 Lorazepam (Ativan) 8 mg PRN Q1HR PRN PO For CIWA 15 or greater; Start 02/13/21 at 10:00 Active Scripts Active Reported Melatonin 3 Mg Capsule 3 Mg PO PRN BFRMEALHC PRN ROS: Review of Systems Review of System Unless noted above a 14 point review of systems was negative Physical Exam: Vital Signs: Vital Signs Date Time Temp Pulse Resp B/P (MAP) Pulse Ox O2 Delivery O2 Flow Rate FiO2 02/13/21 08:57 Room Air 02/13/21 07:00 98.0 84 16 115/61 (79) 97 98.0 Physcial Exam: GEN: Patient in notable distress quite fidgety HEENT: Normal cephalic, atraumatic, external auditory canals are patent EYES: Extraocular muscles are intact, pupil are equally round and reactive to light and accommodation MUSCULOSKELETAL: Appears malnourished ENDOCRINE: No thyromegaly was palpated LYMPHATICS: No cervical chain or axillary nodes were noted HEMATOPOIETIC: No bruising NECK: Supple, no JVD, no thyromegaly was noted LUNGS: Clear to auscultation in all lung rose without rhonchi or wheezing HEART: RRR, S1, S2 present. Peripheral pulses intact, no obvious murmurs noted ABDOMEN: Soft only tender to deep palpation. Very distended with a notable fluid wave. Cannot appreciate any hepatomegaly EXTREMITIES: Without clubbing, cyanosis, or edema. Pedal pulses intact. NEUROLOGIC: Normal speech and tone. A&O x 3, moves all extremities, no obvious focal deficits PSYCHIATRIC: Anxious SKIN: No ulcerations or rashes, good skin turgor, no jaundice VASCULAR: Good capillary refill, neurovascular bundle appears to be intact Labs: Labs: Laboratory Tests Test 02/12/21 19:40 02/12/21 21:23 02/13/21 06:55 White Blood Count 4.6 x10^3/uL (4.0-11.0) 4.0 x10^3/uL (4.0-11.0) Red Blood Count 3.19 x10^6/uL (4.30-5.70) 2.86 x10^6/uL (4.30-5.70) Hemoglobin 9.8 g/dL (13.0-17.5) 8.9 g/dL (13.0-17.5) Hematocrit 29.4 % (39.0-53.0) 26.5 % (39.0-53.0) Mean Corpuscular Volume 92 fL (79-100) 93 fL (79-100) Mean Corpuscular Hemoglobin 31 pg (25-35) 31 pg (25-35) Mean Corpuscular Hemoglobin Concent 34 g/dL (31-37) 34 g/dL (31-37) Red Cell Distribution Width 19.6 % (11.5-14.5) 18.9 % (11.5-14.5) Platelet Count 167 x10^3/uL (140-400) 146 x10^3/uL (140-400) Neutrophils (%) (Auto) 46 % (31-73) 45 % (31-73) Lymphocytes (%) (Auto) 29 % (24-48) 29 % (24-48) Monocytes (%) (Auto) 17 % (0-9) 17 % (0-9) Eosinophils (%) (Auto) 8 % (0-3) 9 % (0-3) Basophils (%) (Auto) 1 % (0-3) 1 % (0-3) Neutrophils # (Auto) 2.1 x10^3/uL (1.8-7.7) 1.8 x10^3/uL (1.8-7.7) Lymphocytes # (Auto) 1.3 x10^3/uL (1.0-4.8) 1.2 x10^3/uL (1.0-4.8) Monocytes # (Auto) 0.8 x10^3/uL (0.0-1.1) 0.7 x10^3/uL (0.0-1.1) Eosinophils # (Auto) 0.4 x10^3/uL (0.0-0.7) 0.3 x10^3/uL (0.0-0.7) Basophils # (Auto) 0.0 x10^3/uL (0.0-0.2) 0.0 x10^3/uL (0.0-0.2) Sodium Level 138 mmol/L (136-145) 139 mmol/L (136-145) Potassium Level 3.4 mmol/L (3.5-5.1) 3.7 mmol/L (3.5-5.1) Chloride Level 104 mmol/L (98-107) 106 mmol/L (98-107) Carbon Dioxide Level 29 mmol/L (21-32) 29 mmol/L (21-32) Anion Gap 5 (6-14) 4 (6-14) Blood Urea Nitrogen 7 mg/dL (8-26) 8 mg/dL (8-26) Creatinine 0.9 mg/dL (0.7-1.3) 0.9 mg/dL (0.7-1.3) Estimated GFR (Cockcroft-Gault) 89.7 89.7 BUN/Creatinine Ratio 8 (6-20) 9 (6-20) Glucose Level 79 mg/dL (70-99) 79 mg/dL (70-99) Calcium Level 7.7 mg/dL (8.5-10.1) 7.5 mg/dL (8.5-10.1) Total Bilirubin 0.7 mg/dL (0.2-1.0) 0.6 mg/dL (0.2-1.0) Aspartate Amino Transf (AST/SGOT) 81 U/L (15-37) 68 U/L (15-37) Alanine Aminotransferase (ALT/SGPT) 86 U/L (16-63) 75 U/L (16-63) Alkaline Phosphatase 145 U/L (46-116) 117 U/L (46-116) Total Protein 6.1 g/dL (6.4-8.2) 5.4 g/dL (6.4-8.2) Albumin 2.2 g/dL (3.4-5.0) 1.8 g/dL (3.4-5.0) Albumin/Globulin Ratio 0.6 (1.0-1.7) 0.5 (1.0-1.7) Lipase 234 U/L (73-393) Acetaminophen Level < 2 mcg/ml (10-30) Acetaminophen Last Dose Date Acetaminophen Last Dose Time Ethyl Alcohol Level < 10 mg/dL (0-10) Urine Collection Type Unknown Urine Color Yellow Urine Clarity Clear Urine pH 6.0 (<5.0-8.0) Urine Specific Jay >=1.030 (1.000-1.030) Urine Protein Negative mg/dL (NEG-TRACE) Urine Glucose (UA) Negative mg/dL (NEG) Urine Ketones (Stick) Negative mg/dL (NEG) Urine Blood Negative (NEG) Urine Nitrite Negative (NEG) Urine Bilirubin Negative (NEG) Urine Urobilinogen Dipstick 1.0 mg/dL (0.2 mg/dL) Urine Leukocyte Esterase Negative (NEG) Urine RBC 1-2 /HPF (0-2) Urine WBC 1-4 /HPF (0-4) Urine Squamous Epithelial Cells Occ /LPF Urine Bacteria 0 /HPF (0-FEW) Urine Opiates Screen Neg (NEG) Urine Methadone Screen Neg (NEG) Urine Barbiturates Neg (NEG) Urine Phencyclidine Screen Neg (NEG) Urine Amphetamine/Methamphetamine Neg (NEG) Urine Benzodiazepines Screen Neg (NEG) Urine Cocaine Screen Neg (NEG) Urine Cannabinoids Screen Pos (NEG) Urine Ethyl Alcohol Neg (NEG) Magnesium Level 2.0 mg/dL (1.8-2.4) Laboratory Tests Test 02/12/21 19:40 02/12/21 21:23 02/13/21 06:55 White Blood Count 4.6 x10^3/uL (4.0-11.0) 4.0 x10^3/uL (4.0-11.0) Red Blood Count 3.19 x10^6/uL (4.30-5.70) 2.86 x10^6/uL (4.30-5.70) Hemoglobin 9.8 g/dL (13.0-17.5) 8.9 g/dL (13.0-17.5) Hematocrit 29.4 % (39.0-53.0) 26.5 % (39.0-53.0) Mean Corpuscular Volume 92 fL (79-100) 93 fL (79-100) Mean Corpuscular Hemoglobin 31 pg (25-35) 31 pg (25-35) Mean Corpuscular Hemoglobin Concent 34 g/dL (31-37) 34 g/dL (31-37) Red Cell Distribution Width 19.6 % (11.5-14.5) 18.9 % (11.5-14.5) Platelet Count 167 x10^3/uL (140-400) 146 x10^3/uL (140-400) Neutrophils (%) (Auto) 46 % (31-73) 45 % (31-73) Lymphocytes (%) (Auto) 29 % (24-48) 29 % (24-48) Monocytes (%) (Auto) 17 % (0-9) 17 % (0-9) Eosinophils (%) (Auto) 8 % (0-3) 9 % (0-3) Basophils (%) (Auto) 1 % (0-3) 1 % (0-3) Neutrophils # (Auto) 2.1 x10^3/uL (1.8-7.7) 1.8 x10^3/uL (1.8-7.7) Lymphocytes # (Auto) 1.3 x10^3/uL (1.0-4.8) 1.2 x10^3/uL (1.0-4.8) Monocytes # (Auto) 0.8 x10^3/uL (0.0-1.1) 0.7 x10^3/uL (0.0-1.1) Eosinophils # (Auto) 0.4 x10^3/uL (0.0-0.7) 0.3 x10^3/uL (0.0-0.7) Basophils # (Auto) 0.0 x10^3/uL (0.0-0.2) 0.0 x10^3/uL (0.0-0.2) Sodium Level 138 mmol/L (136-145) 139 mmol/L (136-145) Potassium Level 3.4 mmol/L (3.5-5.1) 3.7 mmol/L (3.5-5.1) Chloride Level 104 mmol/L (98-107) 106 mmol/L (98-107) Carbon Dioxide Level 29 mmol/L (21-32) 29 mmol/L (21-32) Anion Gap 5 (6-14) 4 (6-14) Blood Urea Nitrogen 7 mg/dL (8-26) 8 mg/dL (8-26) Creatinine 0.9 mg/dL (0.7-1.3) 0.9 mg/dL (0.7-1.3) Estimated GFR (Cockcroft-Gault) 89.7 89.7 BUN/Creatinine Ratio 8 (6-20) 9 (6-20) Glucose Level 79 mg/dL (70-99) 79 mg/dL (70-99) Calcium Level 7.7 mg/dL (8.5-10.1) 7.5 mg/dL (8.5-10.1) Total Bilirubin 0.7 mg/dL (0.2-1.0) 0.6 mg/dL (0.2-1.0) Aspartate Amino Transf (AST/SGOT) 81 U/L (15-37) 68 U/L (15-37) Alanine Aminotransferase (ALT/SGPT) 86 U/L (16-63) 75 U/L (16-63) Alkaline Phosphatase 145 U/L (46-116) 117 U/L (46-116) Total Protein 6.1 g/dL (6.4-8.2) 5.4 g/dL (6.4-8.2) Albumin 2.2 g/dL (3.4-5.0) 1.8 g/dL (3.4-5.0) Albumin/Globulin Ratio 0.6 (1.0-1.7) 0.5 (1.0-1.7) Lipase 234 U/L (73-393) Acetaminophen Level < 2 mcg/ml (10-30) Acetaminophen Last Dose Date Acetaminophen Last Dose Time Ethyl Alcohol Level < 10 mg/dL (0-10) Urine Collection Type Unknown Urine Color Yellow Urine Clarity Clear Urine pH 6.0 (<5.0-8.0) Urine Specific Jay >=1.030 (1.000-1.030) Urine Protein Negative mg/dL (NEG-TRACE) Urine Glucose (UA) Negative mg/dL (NEG) Urine Ketones (Stick) Negative mg/dL (NEG) Urine Blood Negative (NEG) Urine Nitrite Negative (NEG) Urine Bilirubin Negative (NEG) Urine Urobilinogen Dipstick 1.0 mg/dL (0.2 mg/dL) Urine Leukocyte Esterase Negative (NEG) Urine RBC 1-2 /HPF (0-2) Urine WBC 1-4 /HPF (0-4) Urine Squamous Epithelial Cells Occ /LPF Urine Bacteria 0 /HPF (0-FEW) Urine Opiates Screen Neg (NEG) Urine Methadone Screen Neg (NEG) Urine Barbiturates Neg (NEG) Urine Phencyclidine Screen Neg (NEG) Urine Amphetamine/Methamphetamine Neg (NEG) Urine Benzodiazepines Screen Neg (NEG) Urine Cocaine Screen Neg (NEG) Urine Cannabinoids Screen Pos (NEG) Urine Ethyl Alcohol Neg (NEG) Magnesium Level 2.0 mg/dL (1.8-2.4) Assessment/Plan Assessment/Plan Alcoholic cirrhosis with ascites, history of TBI, history anxiety and schizophrenia not on any home psych meds -Presented with worsening abdominal distention in setting of known alcohol abuse -CT showing large volume ascites. GI consulted -Paracentesis ordered for tomorrow with IR -We will put PAT consult for alcohol abuse history along with anxiety and schizophrenia -Start PPI given recent history of GI bleed -No need for steroids right now -Low suspicion of SBP at this point hold off antibiotic -DVT prophylax -CIWA ordered -Regular diet Justifications for Admission Other Justification YOANA GALICIA MD Feb 13, 2021 10:22
[2021-02-13] MEDS: MULTIVIT INFUSN,ADULT 4,VIT K 10 ML, THIAMINE INJ 100 MG, FOLIC ACID INJ 1 MG in IV NOR... IV SCH (11:14)
[2021-02-13] MEDS: CALCIUM CARBONATE 500 MG TAB.CHEW PO PRN ×2 (11:14→22:10)
[2021-02-13 12:11] LABS: PROTHROMBIN TIME PATIENT 15.9 SEC (11.7-14.0)
[2021-02-13] MEDS: oxyCODONE/APAP 5/325 1 TAB TABLET PO PRN ×2 (13:36→18:52)
--- NOTE | 2021-02-13 14:55 | PDOC2 ---
GI CONSULT Reason For Consult: ascites HPI: HPI: 50-year-old male presented to the emergency room overnight due to worsening abdominal distention over the past 4 days. patient is a known alcoholic was actually seen here about 3 weeks ago for a GI bleed. He was supposed to be taking PPI at home however said he really only takes it intermittently. Since that discharge patient has been drinking at home still. About 5 drinks a day which is down from his previous consumption but still too much. Says of the abdomen has been just slowly growing progressively over the past few days. Reports that it is starting to get painful. Patient said he has never had swelling like this before. Denies any sort of history of paracenteses. Does report that he believes he was told he has alcoholic cirrhosis CT A/P 02/12 with Moderate to large amount of abdominal ascites. Hepatic cirrhosis and findings of portal venous hypertension. EGD 01/24 with Grade 4 encephalitis from 28 - 35 cm ( no EV) and gastropahty with prepyloric ulcer Labs with Hgb at 8.9 (rajiv from 9.8 on admit), elevated LFTs with AST 68, ALT 75/AP 117. Tox posotive for cannabnoids PMH: PMH: Past Medical/Surgical History: PMH/PSH: Anxiety, hepatitis, TBI, schizophrenia, alcohol abuse Allergies: Allergies: Coded Allergies: Penicillins (Verified Allergy, Intermediate, rash, 01/24/21) Family History: Family History: Patient denied knowing any family history Social History: Social History: Daily tobacco smoker. Daily alcohol use currently at 5 drinks a day but reports it previously was much more than that. Does use marijuana occasionally Current Medications: Current Medications Current Medications Fentanyl Citrate (Fentanyl 2ml Vial) 75 mcg 1X ONCE IVP Last administered on 1 at 20:00; Start 02/12/21 at 19:45; Stop 02/12/21 at 19:46; Status DC Ondansetron HCl (Zofran) 4 mg 1X ONCE IVP Last administered on 02/12/21at 20:00; Start 02/12/21 at 19:45; Stop 02/12/21 at 19:46; Status DC Iohexol (Omnipaque 300 Mg/ml) 75 ml 1X ONCE IV Last administered on 02/12/21at 20:41; Start 02/12/21 at 20:15; Stop 02/12/21 at 20:16; Status DC Info (CONTRAST GIVEN -- Rx MONITORING) 1 each PRN DAILY PRN MC SEE COMMENTS; Start 02/12/21 at 20:15; Stop 02/14/21 at 20:14 Ondansetron HCl (Zofran) 4 mg PRN Q8HRS PRN IVP NAUSEA/VOMITING 1ST CHOICE; Start 02/12/21 at 21:45; Stop 02/13/21 at 21:44 Morphine Sulfate (Morphine Sulfate) 4 mg PRN Q2HR PRN IVP SEVERE PAIN 7-10 Last administered on 02/13/21at 08:00; Start 02/12/21 at 21:45; Stop 02/13/21 at 21:44 Multivitamins (Thera M Plus) 1 tab DAILY PO Last administered on 02/13/21at 07:59; Start 02/12/21 at 22:00 Chlordiazepoxide (Librium) 25 mg Q6H PO Last administered on 02/13/21at 03:47; Start 02/12/21 at 22:00; Stop 02/13/21 at 10:00; Status DC Al Hydroxide/Mg Hydroxide (Mylanta Plus Xs) 30 ml PRN Q4HRS PRN PO HEARTBURN / GAS Last administered on 02/13/21at 00:39; Start 02/13/21 at 00:30 Pantoprazole Sodium (Protonix) 40 mg DAILYAC PO Last administered on 02/13/21at 07:59; Start 02/13/21 at 07:30 Influenza Virus Vaccine Quadrival (Flulaval Quad [id number] Syringe) 0.5 ml ONCE ONCE VAX IM ; Start 02/13/21 at 09:00; Stop 02/13/21 at 09:01; Status DC Multivitamins 10 ml/Thiamine HCl 100 mg/Folic Acid 1 mg/Sodium Chloride 1,011.2 ml @ 100 mls/ hr DAILY IV ; Start 02/13/21 at 10:00; Stop 02/17/21 at 19:07 Multivitamins (Thera M Plus) 1 tab DAILY PO ; Start 02/18/21 at 09:00 Folic Acid (Folic Acid) 1 mg DAILY PO ; Start 02/18/21 at 09:00 Thiamine Mononitrate (Vitamin B-1) 100 mg DAILY PO ; Start 02/18/21 at 09:00 Lorazepam (Ativan) 4 mg PRN Q1HR PRN PO For CIWA 8-14; Start 02/13/21 at 10:00 Lorazepam (Ativan) 8 mg PRN Q1HR PRN PO For CIWA 15 or greater; Start 02/13/21 at 10:00 Active Scripts Active Reported Melatonin 3 Mg Capsule 3 Mg PO PRN BFRMEALHC PRN Social History: ALCOHOL: heavy Drugs: Cocaine, Crystal meth ROS: GEN: Denies fevers, chills, sweats HEENT: Denies blurred vision, sore throat CV: Denies chest pain RESP: Denies shortness of air, cough GI: Per HPI : Denies hematuria, dysuria ENDO: Denies weight changes NEURO: Denies confusion, dizziness MSK: Denies weakness, joint pain/swelling SKIN: Denies jaundice, pruritus VItals: Vitals: Vital Signs Date Time Temp Pulse Resp B/P (MAP) Pulse Ox O2 Delivery O2 Flow Rate FiO2 02/13/21 13:36 Room Air 02/13/21 11:00 98.4 86 16 111/66 (81) 95 98.4 Labs: Labs: Laboratory Tests Test 02/12/21 19:40 02/12/21 21:23 02/13/21 06:55 02/13/21 11:45 White Blood Count 4.6 x10^3/uL (4.0-11.0) 4.0 x10^3/uL (4.0-11.0) Red Blood Count 3.19 x10^6/uL (4.30-5.70) 2.86 x10^6/uL (4.30-5.70) Hemoglobin 9.8 g/dL (13.0-17.5) 8.9 g/dL (13.0-17.5) Hematocrit 29.4 % (39.0-53.0) 26.5 % (39.0-53.0) Mean Corpuscular Volume 92 fL (79-100) 93 fL (79-100) Mean Corpuscular Hemoglobin 31 pg (25-35) 31 pg (25-35) Mean Corpuscular Hemoglobin Concent 34 g/dL (31-37) 34 g/dL (31-37) Red Cell Distribution Width 19.6 % (11.5-14.5) 18.9 % (11.5-14.5) Platelet Count 167 x10^3/uL (140-400) 146 x10^3/uL (140-400) Neutrophils (%) (Auto) 46 % (31-73) 45 % (31-73) Lymphocytes (%) (Auto) 29 % (24-48) 29 % (24-48) Monocytes (%) (Auto) 17 % (0-9) 17 % (0-9) Eosinophils (%) (Auto) 8 % (0-3) 9 % (0-3) Basophils (%) (Auto) 1 % (0-3) 1 % (0-3) Neutrophils # (Auto) 2.1 x10^3/uL (1.8-7.7) 1.8 x10^3/uL (1.8-7.7) Lymphocytes # (Auto) 1.3 x10^3/uL (1.0-4.8) 1.2 x10^3/uL (1.0-4.8) Monocytes # (Auto) 0.8 x10^3/uL (0.0-1.1) 0.7 x10^3/uL (0.0-1.1) Eosinophils # (Auto) 0.4 x10^3/uL (0.0-0.7) 0.3 x10^3/uL (0.0-0.7) Basophils # (Auto) 0.0 x10^3/uL (0.0-0.2) 0.0 x10^3/uL (0.0-0.2) Sodium Level 138 mmol/L (136-145) 139 mmol/L (136-145) Potassium Level 3.4 mmol/L (3.5-5.1) 3.7 mmol/L (3.5-5.1) Chloride Level 104 mmol/L (98-107) 106 mmol/L (98-107) Carbon Dioxide Level 29 mmol/L (21-32) 29 mmol/L (21-32) Anion Gap 5 (6-14) 4 (6-14) Blood Urea Nitrogen 7 mg/dL (8-26) 8 mg/dL (8-26) Creatinine 0.9 mg/dL (0.7-1.3) 0.9 mg/dL (0.7-1.3) Estimated GFR (Cockcroft-Gault) 89.7 89.7 BUN/Creatinine Ratio 8 (6-20) 9 (6-20) Glucose Level 79 mg/dL (70-99) 79 mg/dL (70-99) Calcium Level 7.7 mg/dL (8.5-10.1) 7.5 mg/dL (8.5-10.1) Total Bilirubin 0.7 mg/dL (0.2-1.0) 0.6 mg/dL (0.2-1.0) Aspartate Amino Transf (AST/SGOT) 81 U/L (15-37) 68 U/L (15-37) Alanine Aminotransferase (ALT/SGPT) 86 U/L (16-63) 75 U/L (16-63) Alkaline Phosphatase 145 U/L (46-116) 117 U/L (46-116) Total Protein 6.1 g/dL (6.4-8.2) 5.4 g/dL (6.4-8.2) Albumin 2.2 g/dL (3.4-5.0) 1.8 g/dL (3.4-5.0) Albumin/Globulin Ratio 0.6 (1.0-1.7) 0.5 (1.0-1.7) Lipase 234 U/L (73-393) Acetaminophen Level < 2 mcg/ml (10-30) Acetaminophen Last Dose Date Acetaminophen Last Dose Time Ethyl Alcohol Level < 10 mg/dL (0-10) Urine Collection Type Unknown Urine Color Yellow Urine Clarity Clear Urine pH 6.0 (<5.0-8.0) Urine Specific [place] >=1.030 (1.000-1.030) Urine Protein Negative mg/dL (NEG-TRACE) Urine Glucose (UA) Negative mg/dL (NEG) Urine Ketones (Stick) Negative mg/dL (NEG) Urine Blood Negative (NEG) Urine Nitrite Negative (NEG) Urine Bilirubin Negative (NEG) Urine Urobilinogen Dipstick 1.0 mg/dL (0.2 mg/dL) Urine Leukocyte Esterase Negative (NEG) Urine RBC 1-2 /HPF (0-2) Urine WBC 1-4 /HPF (0-4) Urine Squamous Epithelial Cells Occ /LPF Urine Bacteria 0 /HPF (0-FEW) Urine Opiates Screen Neg (NEG) Urine Methadone Screen Neg (NEG) Urine Barbiturates Neg (NEG) Urine Phencyclidine Screen Neg (NEG) Urine Amphetamine/Methamphetamine Neg (NEG) Urine Benzodiazepines Screen Neg (NEG) Urine Cocaine Screen Neg (NEG) Urine Cannabinoids Screen Pos (NEG) Urine Ethyl Alcohol Neg (NEG) Magnesium Level 2.0 mg/dL (1.8-2.4) Prothrombin Time 15.9 SEC (11.7-14.0) Prothromb Time International Ratio 1.3 (0.8-1.1) Activated Partial Thromboplast Time 37 SEC (24-38) Imaging: Imaging: [facility] [address] [place] [address] IMAGING REPORT Signed PATIENT: BENTLEY SHERMAN ACCOUNT: [id number] : 1970 LOCATION: ER AGE: 50 SEX: M EXAM STATUS: REG ER ORD. PHYSICIAN: MIKO NAVARRO DO REASON: abd distension and pain X2 WKS OMNI 300 75 ML IV PROCEDURE: CT ABD PELV W/ IV CONTRST ONLY CT ABDOMEN+PELVIS W History: abd distension and pain X2 WKS Comparison: 01/23/2021 Technique: After administration of intravenous contrast, helical CT of the abdomen and pelvis was performed from the lung bases through the ischial tuberosities. Coronal and sagittal reconstructions were obtained. 75 mL of Omnipaque 300 were used. One or more of the following dose reduction techniques were utilized: Automated exposure control (AEC), Adjustment of mA and/or kV according to patient size, Use of iterative reconstruction technique such as ASiR, CT scan done according to ALARA and image gently/image wisely Abdomen Findings: The visualized lung bases are clear. Moderate to large amount of abdominopelvic ascites. Cirrhotic morphology of the liver. No focal hepatic lesion. Gallbladder, pancreas, spleen, and bilateral adrenal glands are normal. Symmetric renal enhancement. There is no hydronephrosis. Unchanged distal esophageal wall thickening. Gastroesophageal varices. No evidence of obstruction. Colonic diverticulosis. There is no mesenteric or retroperitoneal adenopathy. The abdominal aorta is normal in caliber. Pelvis Findings: Urinary bladder is decompressed. No pelvic free fluid. There is no pelvic or inguinal adenopathy. There is no acute bony abnormality. IMPRESSION: Moderate to large amount of abdominal ascites. Hepatic cirrhosis and findings of portal venous hypertension. Electronically signed by: Crow Rosales MD (02/12/2021 9:05 PM) [facility] PE: Physcial Exam: GEN: Patient in notable distress quite fidgety HEENT: Normal cephalic, atraumatic, external auditory canals are patent EYES: Extraocular muscles are intact, pupil are equally round and reactive to light and accommodation MUSCULOSKELETAL: Appears malnourished ENDOCRINE: No thyromegaly was palpated LYMPHATICS: No cervical chain or axillary nodes were noted HEMATOPOIETIC: No bruising NECK: Supple, no JVD, no thyromegaly was noted LUNGS: Clear to auscultation in all lung rose without rhonchi or wheezing HEART: RRR, S1, S2 present. Peripheral pulses intact, no obvious murmurs noted ABDOMEN: Soft only tender to deep palpation. Very distended with a notable fluid wave. Cannot appreciate any hepatomegaly EXTREMITIES: Without clubbing, cyanosis, or edema. Pedal pulses intact. NEUROLOGIC: Normal speech and tone. A&O x 3, moves all extremities, no obvious focal deficits PSYCHIATRIC: Anxious SKIN: No ulcerations or rashes, good skin turgor, no jaundice VASCULAR: Good capillary refill, neurovascular bundle appears to be intact A/P: A/P: A1) Ascites 2) Reflux esophagitis 3) Prepyloric ulcer 4) Anemia 5) elevated LFTs 6)Cirrhosis P 1) Paracentesis by IR tomorrow 2) Add PPI 3) MARGARET NANCE MD Feb 13, 2021 14:55
[2021-02-13] MEDS: HEPARIN for SUB-Q USE 5,000 UNIT/ML VIAL. SQ SCH ×2 (15:18→22:00)
[2021-02-13] MEDS: SENNOSIDES/DOCUSATE 8.6/50MG TABLET. PO SCH (21:00)
[2021-02-13] MEDS: oxyCODONE IR 5 MG TABLET PO PRN (22:10)
[2021-02-14] VITALS (7 sets, daily range): BP systolic 86–112; BP diastolic 41–60
[2021-02-14] MEDS: HEPARIN for SUB-Q USE 5,000 UNIT/ML VIAL. SQ SCH ×3 (05:32→22:00)
[2021-02-14] MEDS ORDERED: THIAMINE 100 MG TABLET. PO SCH (09:00)
[2021-02-14] MEDS: SENNOSIDES/DOCUSATE 8.6/50MG TABLET. PO SCH ×2 (09:25→21:00)
[2021-02-14] MEDS: oxyCODONE/APAP 5/325 1 TAB TABLET PO PRN (09:26)
[2021-02-14] MEDS: PANTOPRAZOLE 40 MG TABLET.DR. PO SCH (09:26)
[2021-02-14] MEDS: MULTIVIT INFUSN,ADULT 4,VIT K 10 ML, THIAMINE INJ 100 MG, FOLIC ACID INJ 1 MG in IV NOR... IV SCH (09:27)
--- NOTE | 2021-02-14 09:54 | RAD ---
Ultrasound-guided paracentesis. 02/14/2021 9:30 AM Indication: Reason: ASCITES Discussion: The risks and benefits of the procedure including but not limited to bleeding, hypotensio n, and infection were discussed the patient. Informed consent was obtained. Ultrasound evaluation was performed demonstrating ascites, with the largest pocket and the right lower quadrant. The right low er quadrant was prepped and draped in sterile fashion. 1% lidocaine without epinephrine was administe red for local anesthesia. Under direct ultrasound guidance a 5 [place] Yueh needle was advanced into t he peritoneal space. Serous fluid was aspirated. The catheter was connected to suction and approximat brien 2.2 liters of fluid was removed. The catheter was then removed and manual pressure was held to a chieve hemostasis. A sterile dressing was applied. Impression: Ultrasound-guided paracentesis with removal of 2.2 L of ascites Electronically signed by: Bobby Scott MD (02/14/2021 9:51 AM) [id number]
--- NOTE | 2021-02-14 10:04 | PDOC ---
[employer] PROGRESS NOTE Date of Service DOS: DATE: 02/14/21 TIME: 09:48 Chief Complaint Chief Complaint A/P: Intractable abdominal pain - due to ascites likely. No signs of SBP apparent Ascites - due to ETOH related cirrhosis, also with Hep C ab positive, apparently known hep c as well Reflux esophagitis - PPI Prepyloric ulcer - noted previously Anemia - no active bleeding noted, will trend Transaminitis - likely acute alcoholic hepatitis Cirrhosis - due to ETOH and possibly hep C Schizophrenia - previously on zyprexa 20mg, will cont prn FEN - NPO --> regular diet PPX - ppi FULL CODE Dispo - likely d/c in next 24-48 hours pending paracentesis results, monitor Hb History of Present Illness History of Present Illness Mr Juárez is a 50-year-old male w/ PMHx ETOh use disorder, anxiety, hep c, schizophrenia who presented to the emergency room due to worsening abdominal distention over the past 4 days prior to admission. patient is a known alcoholic was actually seen here about 3 weeks ago for a GI bleed. He was supposed to be taking PPI at home however said he really only takes it intermittently. CT A/P 02/12 with Moderate to large amount of abdominal ascites. Hepatic cirrhosis and findings of portal venous hypertension. (EGD 01/24 with Grade 4 encephalitis from 28 - 35 cm ( no EV) and gastropahty with prepyloric ulcer) Hb 8.9, AST 68, ALT 75/AP 117. Tox positive for cannabnoids. He was noted to jaime ve still been drinking, but denies drinking to me. Status post paracentesis over 2 L this morning. He is sleeping and easily awakened. He is asking for something "stronger" for pain notes its on his right side. No shortness of breath or chest pain. Was able to eat a couple pancakes this morning no vomiting. Hep C ab positive. Patient notes he tested positive for it previously at [facility]. Vitals/I&O Vitals/I&O: Vital Signs Date Time Temp Pulse Resp B/P (MAP) Pulse Ox O2 Delivery O2 Flow Rate FiO2 02/14/21 09:26 Room Air 02/14/21 09:04 92 107/52 (70) 96 02/14/21 07:00 98.3 18 98.3 I & O 02/13/21 02/13/21 02/14/21 15:00 23:00 07:00 Intake Total 180 ml Balance 180 ml Physical Exam General: Alert, Cooperative Lungs: Clear Labs Labs: Laboratory Tests Test 02/13/21 11:45 Prothrombin Time 15.9 SEC (11.7-14.0) Prothromb Time International Ratio 1.3 (0.8-1.1) Activated Partial Thromboplast Time 37 SEC (24-38) Assessment and Plan Assessmemt and Plan Problems Medical Problems: (1) Alcoholic cirrhosis of liver with ascites Status: Acute Comment Review of Relevant I have reviewed the following items reese (where applicable) has been applied. Medications: Current Medications Medications (Trade) Dose Ordered Sig/Josefa Route PRN Reason Start Time Stop Time Status Last Admin Dose Admin Multivitamins 10 ml/Thiamine HCl 100 mg/Folic Acid 1 mg/Sodium Chloride 1,011.2 ml @ 100 mls/ hr DAILY IV 02/13/21 10:00 02/17/21 19:07 02/14/21 09:27 Calcium Carbonate/ Glycine (Tums) 500 mg PRN Q3HRS PRN PO UPSET STOMACH 02/13/21 10:15 02/13/21 22:10 Oxycodone HCl (Roxicodone) 5 mg PRN Q3HRS PRN PO BREAKTHROUGH PAIN 02/13/21 10:15 02/13/21 22:10 Oxycodone/ Acetaminophen (Percocet 5/325) 1 tab PRN Q4HRS PRN PO MILD PAIN, 1ST CHOICE 02/13/21 10:15 02/14/21 09:26 Senna/Docusate Sodium (Senna Plus) 1 tab BID PO 02/13/21 21:00 02/14/21 09:25 Heparin Sodium (Porcine) (Heparin Sodium) 5,000 unit Q8HRS SQ 02/13/21 14:00 02/13/21 15:18 Justifications for Admission Other Justification YOANA HOPSON MD Feb 14, 2021 10:04
--- NOTE | 2021-02-14 10:27 | PDOC ---
Date of Service: DATE: 02/14/21 TIME: 10:19 Subjective: Subjective: Biggest complaint is that "kidneys are sore." Abdomen feels a little better after paracentesis. Tells me he hasn't eaten anything today - other notes suggest he had pancakes. Objective: Vital Signs: Vital Signs Date Time Temp Pulse Resp B/P (MAP) Pulse Ox O2 Delivery O2 Flow Rate FiO2 02/14/21 09:26 Room Air 02/14/21 09:04 92 107/52 (70) 96 02/14/21 07:00 98.3 18 98.3 Labs: Laboratory Tests Test 02/13/21 11:45 Prothrombin Time 15.9 SEC Prothromb Time International Ratio 1.3 Activated Partial Thromboplast Time 37 SEC Imaging: CT A/P 02/12 IMPRESSION: Moderate to large amount of abdominal ascites. Hepatic cirrhosis and findings of portal venous hypertension. Paracentesis 02/14 removal of 2.2 L of ascites PE: GEN: NAD LUNGS: HEART: ABD: NEURO/PSYCH: A & O 3 A/P: Ascites - s/p paracentesis this morning Cirrhosis - alcohol (still drinking), Hep C MARKOS (stable compared to recent admission), abnormal LFTs (better than previous) Severe GERD (non-compliant w/ PPI), portal gastropathy, small prepyloric ulcer - had EGD last month - path benign and no varices CRC screen - none COVID negative +cannabinoids -- Continue PPI, await fluid studies. Justicifation of Admission Dx: Justifications for Admission: Justification of Admission Dx: Yes JOHN HAN Feb 14, 2021 10:27
[2021-02-14 13:14] LABS: BF CLARITY CLEAR; BF COLOR STRAW; BF MON % 91 %; BF PMN % 2 %; BF RBC COUNT 5 /cmm (Not Established); BF SOURCE ASCITES; BF WBC COUNT 146 /cmm (Not Established)
[2021-02-14 13:16] LABS: BF OTHER % 7 %
--- NOTE | 2021-02-14 13:54 | NUR ---
SS following for discharge planning. SS reviewed pt chart and discussed with pt RN. Pt is from home and is currently on room air. Pt positive for THC with history of ETOH. GI following. Pt had Paracentesis today and 2.2 liters removed. PAT team referral made for assessment and recommendations. Sonia from PAT team met with pt. Pt has services at the [facility] for case management and medication management. Safety plan provided. SS will continue to follow for discharge planning.
[2021-02-15] MEDS: oxyCODONE/APAP 5/325 1 TAB TABLET PO PRN ×4 (01:34→19:43)
[2021-02-15 03:00] VITALS: BP 104/58
[2021-02-15] MEDS: HEPARIN for SUB-Q USE 5,000 UNIT/ML VIAL. SQ SCH ×3 (06:00→21:34)
[2021-02-15 06:41] LABS: HEMATOCRIT 25.2 % (39.0-53.0); HEMOGLOBIN 8.1 g/dL (13.0-17.5); RED BLOOD COUNT 2.73 x10^6/uL (4.30-5.70); RED CELL DISTRIBUTION WIDTH 19.5 % (11.5-14.5); WHITE BLOOD COUNT 2.6 x10^3/uL (4.0-11.0)
[2021-02-15 07:00] VITALS: BP 90/51
[2021-02-15 07:05] LABS: ALBUMIN 1.5 g/dL (3.4-5.0); ALBUMIN/GLOBULIN RATIO 0.5 (1.0-1.7); CALCIUM 6.8 mg/dL (8.5-10.1); GFR 79.4; POTASSIUM 3.6 mmol/L (3.5-5.1); TOTAL BILIRUBIN 0.5 mg/dL (0.2-1.0); TOTAL PROTEIN 4.7 g/dL (6.4-8.2)
--- NOTE | 2021-02-15 07:27 | PDOC ---
[employer] PROGRESS NOTE Date of Service DOS: DATE: 02/15/21 TIME: 07:26 Chief Complaint Chief Complaint A/P: Intractable abdominal pain - due to ascites likely. No signs of SBP apparent Ascites - due to ETOH related cirrhosis, also with Hep C ab positive, apparently known hep c as well Reflux esophagitis - PPI Prepyloric ulcer - noted previously Anemia - no active bleeding noted, will trend Transaminitis - likely acute alcoholic hepatitis Cirrhosis - due to ETOH and possibly hep C Schizophrenia - previously on zyprexa 20mg, will cont prn FEN - NPO --> regular diet PPX - ppi FULL CODE Dispo - likely d/c in next 24-48 hours pending paracentesis results, monitor Hb History of Present Illness History of Present Illness Mr Juárez is a 50-year-old male w/ PMHx ETOh use disorder, anxiety, hep c, schizophrenia who presented to the emergency room due to worsening abdominal distention over the past 4 days prior to admission. patient is a known alcoholic was actually seen here about 3 weeks ago for a GI bleed. He was supposed to be taking PPI at home however said he really only takes it intermittently. CT A/P 02/12 with Moderate to large amount of abdominal ascites. Hepatic cirrhosis and findings of portal venous hypertension. (EGD 01/24 with Grade 4 encephalitis from 28 - 35 cm ( no EV) and gastropahty with prepyloric ulcer) Hb 8.9, AST 68, ALT 75/AP 117. Tox positive for cannabnoids. He was noted to jaime ve still been drinking, but denies drinking to me. 02/14: Status post paracentesis over 2 L this morning. He is sleeping and e asily awakened. He is asking for something "stronger" for pain notes its on his right side. No shortness of breath or chest pain. Was able to eat a couple pancakes this morning no vomiting. Hep C ab positive. Patient notes he tested positive for it previously at [facility]. AFP minimally elevated. Gram stain peritoneal fluid negative thus far and PMNs low. He still complaining of "kidney pain". Points to bilateral flanks. Has a good appetite. He is requesting Thorazine. Advised with his pancytopenia which should be held. Vitals/I&O Vitals/I&O: Vital Signs Date Time Temp Pulse Resp B/P (MAP) Pulse Ox O2 Delivery O2 Flow Rate FiO2 02/15/21 03:00 98.7 74 20 104/58 (73) 92 Room Air 98.7 I & O 02/14/21 02/14/21 02/15/21 15:00 23:00 07:00 Intake Total 490 ml 200 ml 500 ml Output Total 2200 ml Balance -1710 ml 200 ml 500 ml Physical Exam General: Alert, Cooperative Lungs: Clear Labs Labs: Laboratory Tests Test 02/14/21 09:05 02/14/21 17:10 02/15/21 05:45 Body Fluid Source Ascites Body Fluid Color Straw Body Fluid Clarity Clear Body Fluid Nucleated Cells 146 /cmm (Not Established) Body Fluid Mononuclear WBCs (%) 91 % Body Fluid Polymorphonuclear Cells 2 % Body Fluid Total RBCs Counted 5 /cmm (Not Established) Body Fluid Other Cells (%) 7 % Tumor Marker Alpha Fetoprotein 9.7 ng/mL (0.0-8.3) White Blood Count 2.6 x10^3/uL (4.0-11.0) Red Blood Count 2.73 x10^6/uL (4.30-5.70) Hemoglobin 8.1 g/dL (13.0-17.5) Hematocrit 25.2 % (39.0-53.0) Mean Corpuscular Volume 93 fL (79-100) Mean Corpuscular Hemoglobin 30 pg (25-35) Mean Corpuscular Hemoglobin Concent 32 g/dL (31-37) Red Cell Distribution Width 19.5 % (11.5-14.5) Platelet Count 116 x10^3/uL (140-400) Sodium Level 141 mmol/L (136-145) Potassium Level 3.6 mmol/L (3.5-5.1) Chloride Level 110 mmol/L (98-107) Carbon Dioxide Level 27 mmol/L (21-32) Anion Gap 4 (6-14) Blood Urea Nitrogen 8 mg/dL (8-26) Creatinine 1.0 mg/dL (0.7-1.3) Estimated GFR (Cockcroft-Gault) 79.4 BUN/Creatinine Ratio 8 (6-20) Glucose Level 75 mg/dL (70-99) Calcium Level 6.8 mg/dL (8.5-10.1) Total Bilirubin 0.5 mg/dL (0.2-1.0) Aspartate Amino Transf (AST/SGOT) 65 U/L (15-37) Alanine Aminotransferase (ALT/SGPT) 66 U/L (16-63) Alkaline Phosphatase 117 U/L (46-116) Total Protein 4.7 g/dL (6.4-8.2) Albumin 1.5 g/dL (3.4-5.0) Albumin/Globulin Ratio 0.5 (1.0-1.7) Assessment and Plan Assessmemt and Plan Problems Medical Problems: (1) Alcoholic cirrhosis of liver with ascites Status: Acute Comment Review of Relevant I have reviewed the following items reese (where applicable) has been applied. Medications: Current Medications Medications (Trade) Dose Ordered Sig/Josefa Route PRN Reason Start Time Stop Time Status Last Admin Dose Admin Olanzapine (ZyPREXA ZYDIS) 5 mg PRN BID PRN PO ANXIETY / AGITATION 02/14/21 10:00 02/14/21 13:24 Justifications for Admission Other Justification YOANA HOPSON MD Feb 15, 2021 07:27
[2021-02-15] MEDS: PANTOPRAZOLE 40 MG TABLET.DR. PO SCH (07:33)
[2021-02-15] MEDS: FOLIC ACID 1 MG TABLET. PO SCH (08:57)
[2021-02-15] MEDS: SENNOSIDES/DOCUSATE 8.6/50MG TABLET. PO SCH ×2 (08:57→19:43)
[2021-02-15] MEDS: MULTIVITAMIN with MINERAL TABLET. PO SCH (08:57)
[2021-02-15] MEDS: THIAMINE 100 MG TABLET. PO SCH (08:58)
[2021-02-15] MEDS: SPIRONOLACTONE 25 MG TABLET PO SCH (09:00)
[2021-02-15] MEDS: LIDOCAINE (700MG/PATCH) PATCH. TD SCH (09:02)
--- NOTE | 2021-02-15 10:49 | PDOC ---
Date of Service: DATE: 02/15/21 TIME: 10:43 Objective: Objective: D/w nurse - discharged discussed if okay w/ us. Reviewed chart - Aldactone not given due to lowish BP. Vital Signs: Vital Signs Date Time Temp Pulse Resp B/P (MAP) Pulse Ox O2 Delivery O2 Flow Rate FiO2 02/15/21 09:40 18 Room Air 02/15/21 09:01 92 02/15/21 07:00 98.2 66 90/51 (64) 98.2 Labs: Laboratory Tests Test 02/14/21 17:10 02/15/21 05:45 Tumor Marker Alpha Fetoprotein 9.7 ng/mL White Blood Count 2.6 x10^3/uL Red Blood Count 2.73 x10^6/uL Hemoglobin 8.1 g/dL Hematocrit 25.2 % Mean Corpuscular Volume 93 fL Mean Corpuscular Hemoglobin 30 pg Mean Corpuscular Hemoglobin Concent 32 g/dL Red Cell Distribution Width 19.5 % Platelet Count 116 x10^3/uL Sodium Level 141 mmol/L Potassium Level 3.6 mmol/L Chloride Level 110 mmol/L Carbon Dioxide Level 27 mmol/L Anion Gap 4 Blood Urea Nitrogen 8 mg/dL Creatinine 1.0 mg/dL Estimated GFR (Cockcroft-Gault) 79.4 BUN/Creatinine Ratio 8 Glucose Level 75 mg/dL Calcium Level 6.8 mg/dL Total Bilirubin 0.5 mg/dL Aspartate Amino Transf (AST/SGOT) 65 U/L Alanine Aminotransferase (ALT/SGPT) 66 U/L Alkaline Phosphatase 117 U/L Total Protein 4.7 g/dL Albumin 1.5 g/dL Albumin/Globulin Ratio 0.5 GRAM STAIN Final Final NO ORGANISMS SEEN. SQUAMOUS EPI CELL:NOT APPLICABLE PMN (WBCs):RARE ANAEROBIC-AEROBIC CULTURE Preliminary Preliminary No Growth on 02/15/21 at 0824 PE: GEN: NAD ABD: non-distended NEURO/PSYCH: sleeping - did not awaken A/P: Ascites - s/p paracentesis 02/14 - Aldactone ordered/not administered, started on salt restriction yesterday Cirrhosis - alcohol (still drinking?), Hep C - AFP elevated, portal gastropathy on recent EGD (no varices) Pancytopenia/MARKOS, elevated LFTs H/o GERD and PUD -- D/w Dr. Jeffries - hold DC for now. Will return to see later. ?additional liver imaging Not sure he'll be the best as outpt follow-up. Justicifation of Admission Dx: Justifications for Admission: Justification of Admission Dx: Yes JOHN HAN Feb 15, 2021 10:49
[2021-02-15 11:00] VITALS: BP 84/48
--- NOTE | 2021-02-15 11:52 | NUR ---
SS following up with discharge planning. SS reviewed pt chart and discussed with pt RN. Pt is currently on room air. GI following and not signed off at this time. Discharge plan is currently to home when medically ready for discharge. SS will continue to follow for discharge planning.
[2021-02-15 15:13] VITALS: BP 95/25
[2021-02-15] MEDS: oxyCODONE IR 5 MG TABLET PO PRN (16:24)
[2021-02-15 19:00] VITALS: BP 107/53
[2021-02-15 19:43] LABS: HCV ULTRA QUANT PCR 305000 IU/mL (.)
[2021-02-15] MEDS: PATCH REMOVAL. MC SCH (21:00)
[2021-02-15 23:00] VITALS: BP_SYST 65; BP_SYST 95; BP_DIAS 40
[2021-02-16 03:00] VITALS: BP 109/61
[2021-02-16] MEDS: HEPARIN for SUB-Q USE 5,000 UNIT/ML VIAL. SQ SCH ×3 (05:58→22:00)
[2021-02-16] MEDS: PANTOPRAZOLE 40 MG TABLET.DR. PO SCH (06:04)
[2021-02-16] MEDS: oxyCODONE/APAP 5/325 1 TAB TABLET PO PRN (06:05)
[2021-02-16 07:00] VITALS: BP 99/39
[2021-02-16] MEDS: SPIRONOLACTONE 25 MG TABLET PO SCH (07:55)
[2021-02-16] MEDS: THIAMINE 100 MG TABLET. PO SCH (07:56)
[2021-02-16] MEDS: FOLIC ACID 1 MG TABLET. PO SCH (07:56)
[2021-02-16] MEDS: SENNOSIDES/DOCUSATE 8.6/50MG TABLET. PO SCH ×2 (07:56→21:00)
[2021-02-16] MEDS: MULTIVITAMIN with MINERAL TABLET. PO SCH (07:56)
[2021-02-16] MEDS: LIDOCAINE (700MG/PATCH) PATCH. TD SCH (07:57)
--- NOTE | 2021-02-16 08:22 | RAD ---
EXAM: Abdomen sonogram. HISTORY: Cirrhosis. TECHNIQUE: Sonographic imaging of the abdomen was performed. COMPARISON: CT dated 02/12/2021. FINDINGS: There is coarse hepatic echotexture and hepatic surface nodularity due to cirrhosis. No foc al hepatic lesion is seen. The gallbladder is unremarkable. The common bile duct is normal in caliber . The right kidney is unremarkable. The pancreas and inferior vena cava are obscured due to bowel gas . There is a small amount of abdominal ascites. IMPRESSION: 1. Hepatic cirrhosis. No focal hepatic lesion is seen sonographically. 2. Small ascites. This is decreased compared to the prior CT, consistent with interval paracentesis. 3. Obscured midline structures due to bowel gas. Electronically signed by: Khalida Pan MD (02/16/2021 8:20 AM) [id number]
[2021-02-16 11:00] VITALS: BP 89/49
--- NOTE | 2021-02-16 11:01 | PDOC ---
Date of Service: DATE: 02/16/21 TIME: 10:56 Subjective: Subjective: "Kidney" pain and abdominal pain. Says abdominal pain started 4-5 days ago. Thinks abdomen might be swollen again. Objective: Objective: D/w nurse - gave spironolactone this morning, possible DC? Vital Signs: Vital Signs Date Time Temp Pulse Resp B/P (MAP) Pulse Ox O2 Delivery O2 Flow Rate FiO2 02/16/21 08:30 Room Air 02/16/21 07:00 98.1 71 99/39 (59) 96 98.1 02/16/21 06:35 20 Imaging: Abd US IMPRESSION: 1. Hepatic cirrhosis. No focal hepatic lesion is seen sonographically. 2. Small ascites. This is decreased compared to the prior CT, consistent with interval paracentesis. 3. Obscured midline structures due to bowel gas. PE: GEN: NAD - was asleep - bag of potato chips on bedside table LUNGS: CTAB HEART: RRR ABD: ?more distended today NEURO/PSYCH: A & O 3 A/P: New ascites - s/p paracentesis 02/14 - started Aldactone Cirrhosis - alcohol and Hep C, mildly elevated AFP (US as above) Pancytopenia/MARKOS H/o GERD and PUD -- Continue salt restriction (potato chips probably not the best snack choice) and spironolactone. No alcohol. F/u as outpt re: Hep C treatment. Continue PPI. Justicifation of Admission Dx: Justifications for Admission: Justification of Admission Dx: Yes JOHN HAN Feb 16, 2021 11:01
[2021-02-16] MEDS: MAG HYDROX/ALUMINUM HYD/SIMETH 30 ML ORAL.SUSP PO PRN ×2 (12:16→18:08)
--- NOTE | 2021-02-16 12:20 | NUR ---
SS following up with discharge planning. SS reviewed pt chart and discussed with pt RN. Pt is currently on room air. GI following and not signed off at this time. Discharge plan is currently to home when medically ready for discharge. Currently awaiting GI to sign off. SS will continue to follow for discharge planning.
--- NOTE | 2021-02-16 12:30 | PDOC ---
[employer] PROGRESS NOTE Date of Service DOS: DATE: 02/16/21 TIME: 12:30 Chief Complaint Chief Complaint A/P: Intractable abdominal pain - due to ascites likely. No signs of SBP apparent Ascites - due to ETOH related cirrhosis, also with Hep C ab positive, apparently known hep c as well Reflux esophagitis - PPI Prepyloric ulcer - noted previously Anemia - no active bleeding noted, will trend Transaminitis - likely acute alcoholic hepatitis Cirrhosis - due to ETOH and possibly hep C Schizophrenia - previously on zyprexa 20mg, will cont prn FEN - NPO --> regular diet PPX - ppi FULL CODE Dispo - likely d/c in next 24-48 hours pending paracentesis results, monitor Hb History of Present Illness History of Present Illness Mr Juárez is a 50-year-old male w/ PMHx ETOh use disorder, anxiety, hep c, schizophrenia who presented to the emergency room due to worsening abdominal distention over the past 4 days prior to admission. patient is a known alcoholic was actually seen here about 3 weeks ago for a GI bleed. He was supposed to be taking PPI at home however said he really only takes it intermittently. CT A/P 02/12 with Moderate to large amount of abdominal ascites. Hepatic cirrhosis and findings of portal venous hypertension. (EGD 01/24 with Grade 4 encephalitis from 28 - 35 cm ( no EV) and gastropahty with prepyloric ulcer) Hb 8.9, AST 68, ALT 75/AP 117. Tox positive for cannabnoids. He was noted to jaime ve still been drinking, but denies drinking to me. 02/14: Status post paracentesis over 2 L this morning. He is sleeping and e asily awakened. He is asking for something "stronger" for pain notes its on his right side. No shortness of breath or chest pain. Was able to eat a couple pancakes this morning no vomiting. Hep C ab positive. Patient notes he tested positive for it previously at [facility]. 02/15: AFP minimally elevated. Gram stain peritoneal fluid negative thus far and PMNs low. He still complaining of "kidney pain". Points to bilateral flanks. Has a good appetite. He is requesting Thorazine. Advised with his pancytopenia which should be held. Hep C viral titer 305,000. Preliminary Gram stain abdominal fluid negative. Still with pretty severe pain and worsening swelling of his abdomen Vitals/I&O Vitals/I&O: Vital Signs Date Time Temp Pulse Resp B/P (MAP) Pulse Ox O2 Delivery O2 Flow Rate FiO2 02/16/21 11:00 98.5 73 89/49 (62) 96 Room Air 98.5 02/16/21 06:35 20 I & O 02/15/21 02/15/21 02/16/21 15:00 23:00 07:00 Intake Total 200 ml 120 ml 300 ml Balance 200 ml 120 ml 300 ml Physical Exam General: Alert, Cooperative Lungs: Clear Assessment and Plan Assessmemt and Plan Problems Medical Problems: (1) Alcoholic cirrhosis of liver with ascites Status: Acute Comment Review of Relevant I have reviewed the following items reese (where applicable) has been applied. Medications: Current Medications Medications (Trade) Dose Ordered Sig/Josefa Route PRN Reason Start Time Stop Time Status Last Admin Dose Admin Miscellaneous (Lidoderm Patch Removal) 1 ea [id number] 02/15/21 21:00 02/15/21 21:00 Justifications for Admission Other Justification YOANA HOPSON MD Feb 16, 2021 12:30
[2021-02-16] MEDS ORDERED: ACETAMINOPHEN 325 MG TABLET. PO PRN (13:15)
[2021-02-16] MEDS: traMADol 50 MG TABLET PO PRN ×2 (13:51→20:02)
[2021-02-16 15:00] VITALS: BP 107/53
[2021-02-16] MEDS: CALCIUM CARBONATE 500 MG TAB.CHEW PO PRN (15:40)
[2021-02-16 19:00] VITALS: BP 95/48
--- NOTE | 2021-02-16 20:00 | NUR ---
Patient talkative, reports that his friend's name is Juan Pablo, and his birthday is the same as Juan Pablo's ,to give zyprexa for anxiety, monitoring
[2021-02-16] MEDS: PATCH REMOVAL. MC SCH (21:00)
[2021-02-16 23:00] VITALS: BP 105/51
[2021-02-17 03:01] VITALS: BP 99/42
[2021-02-17] MEDS: HEPARIN for SUB-Q USE 5,000 UNIT/ML VIAL. SQ SCH (06:00)
[2021-02-17 07:00] VITALS: BP 110/61
[2021-02-17 07:32] LABS: BASO % 1 % (0-3); EOS # 0.3 x10^3/uL (0.0-0.7); EOS % 9 % (0-3); HEMATOCRIT 27.1 % (39.0-53.0); HEMOGLOBIN 8.9 g/dL (13.0-17.5); LYMPH # 1.2 x10^3/uL (1.0-4.8); LYMPH % 35 % (24-48); MEAN CORPUSCULAR HEMOGLOBIN 30 pg (25-35); MEAN CORPUSCULAR HGB CONC 33 g/dL (31-37); MEAN CORPUSCULAR VOLUME 92 fL (79-100); MONO # 0.5 x10^3/uL (0.0-1.1); MONO % 15 % (0-9); NEUT # 1.4 x10^3/uL (1.8-7.7); NEUT % 41 % (31-73); PLATELET COUNT 119 x10^3/uL (140-400); RED BLOOD COUNT 2.96 x10^6/uL (4.30-5.70); RED CELL DISTRIBUTION WIDTH 19.4 % (11.5-14.5); WHITE BLOOD COUNT 3.4 x10^3/uL (4.0-11.0)
[2021-02-17 08:09] LABS: ALBUMIN 1.6 g/dL (3.4-5.0); ALBUMIN/GLOBULIN RATIO 0.5 (1.0-1.7); CALCIUM 7.2 mg/dL (8.5-10.1); CREATININE 0.8 mg/dL (0.7-1.3); GFR 102.7; POTASSIUM 4.1 mmol/L (3.5-5.1); TOTAL BILIRUBIN 0.7 mg/dL (0.2-1.0); TOTAL PROTEIN 5.1 g/dL (6.4-8.2)
[2021-02-17] MEDS: SPIRONOLACTONE 25 MG TABLET PO SCH (09:10)
[2021-02-17] MEDS: THIAMINE 100 MG TABLET. PO SCH (09:10)
[2021-02-17] MEDS: FOLIC ACID 1 MG TABLET. PO SCH (09:10)
[2021-02-17] MEDS: PANTOPRAZOLE 40 MG TABLET.DR. PO SCH (09:11)
[2021-02-17] MEDS: LIDOCAINE (700MG/PATCH) PATCH. TD SCH (09:11)
[2021-02-17] MEDS: SENNOSIDES/DOCUSATE 8.6/50MG TABLET. PO SCH (09:11)
[2021-02-17] MEDS: MULTIVITAMIN with MINERAL TABLET. PO SCH (09:11)
--- NOTE | 2021-02-17 09:38 | PDOC ---
Date of Service: DATE: 02/17/21 TIME: 09:32 Subjective: Subjective: Back hurts, abdomen is sore. Tolerating diet. Objective: Objective: D/w nurse and hospitalist. Vital Signs: Vital Signs Date Time Temp Pulse Resp B/P (MAP) Pulse Ox O2 Delivery O2 Flow Rate FiO2 02/17/21 07:00 98.1 69 20 110/61 (77) 95 Room Air 98.1 PE: GEN: NAD - was asleep LUNGS: CTAB HEART: RRR ABD: BS+, soft, ?less distended today, not particularly tender NEURO/PSYCH: A & O 3 A/P: Ascites - s/p first paracentesis 02/14, now on Aldactone Cirrhosis - MELD 9; alcohol and Hep C, mildly elevated AFP (US unrevealing for hepatic lesion), portal gastropathy (no varices) on recent EGD Pancytopenia/MARKOS, h/o GERD and PUD Chronic pain, psych issues -- Stable. Plan is to discharge soon. Should follow-up for Hep C treatment - [facility] seems like a good option considering hepatology/transplant program. Continue diuretic, salt restriction. No alcohol or marijuana. Continue PPI. Also needs screening colonoscopy - we can help arrange this. If interval paracentesis needed, can be pursued as outpt. Suspect follow-up/compliance might be an issue. Justicifation of Admission Dx: Justifications for Admission: Justification of Admission Dx: Yes JOHN HAN Feb 17, 2021 09:38
[2021-02-17] MEDS ORDERED: SPIR100T4 PO (10:03)
[2021-02-17] MEDS ORDERED: PANT40TA77 PO (10:03)
--- NOTE | 2021-02-17 10:12 | PDOC3 ---
Discharge Summary Visit Information Date of Admission: Feb 12, 2021 Date of Discharge: Feb 17, 2021 Admitting Diagnosis: Alcoholic cirrhosis with ascites, hep c Final Diagnosis Problems Medical Problems: (1) Alcoholic cirrhosis of liver with ascites Status: Acute Brief Hospital Course Allergies Allergies Coded Allergies Type Severity Reaction Last Updated Verified Penicillins Allergy Intermediate rash 01/24/21 Yes Vital Signs Vital Signs Date Time Temp Pulse Resp B/P (MAP) Pulse Ox O2 Delivery O2 Flow Rate FiO2 02/17/21 07:00 98.1 69 20 110/61 (77) 95 Room Air 98.1 Lab Results Laboratory Tests Test 02/17/21 06:35 White Blood Count 3.4 x10^3/uL (4.0-11.0) Red Blood Count 2.96 x10^6/uL (4.30-5.70) Hemoglobin 8.9 g/dL (13.0-17.5) Hematocrit 27.1 % (39.0-53.0) Mean Corpuscular Volume 92 fL (79-100) Mean Corpuscular Hemoglobin 30 pg (25-35) Mean Corpuscular Hemoglobin Concent 33 g/dL (31-37) Red Cell Distribution Width 19.4 % (11.5-14.5) Platelet Count 119 x10^3/uL (140-400) Neutrophils (%) (Auto) 41 % (31-73) Lymphocytes (%) (Auto) 35 % (24-48) Monocytes (%) (Auto) 15 % (0-9) Eosinophils (%) (Auto) 9 % (0-3) Basophils (%) (Auto) 1 % (0-3) Neutrophils # (Auto) 1.4 x10^3/uL (1.8-7.7) Lymphocytes # (Auto) 1.2 x10^3/uL (1.0-4.8) Monocytes # (Auto) 0.5 x10^3/uL (0.0-1.1) Eosinophils # (Auto) 0.3 x10^3/uL (0.0-0.7) Basophils # (Auto) 0.0 x10^3/uL (0.0-0.2) Sodium Level 140 mmol/L (136-145) Potassium Level 4.1 mmol/L (3.5-5.1) Chloride Level 110 mmol/L (98-107) Carbon Dioxide Level 23 mmol/L (21-32) Anion Gap 7 (6-14) Blood Urea Nitrogen 10 mg/dL (8-26) Creatinine 0.8 mg/dL (0.7-1.3) Estimated GFR (Cockcroft-Gault) 102.7 BUN/Creatinine Ratio 13 (6-20) Glucose Level 70 mg/dL (70-99) Calcium Level 7.2 mg/dL (8.5-10.1) Total Bilirubin 0.7 mg/dL (0.2-1.0) Aspartate Amino Transf (AST/SGOT) 66 U/L (15-37) Alanine Aminotransferase (ALT/SGPT) 66 U/L (16-63) Alkaline Phosphatase 117 U/L (46-116) Total Protein 5.1 g/dL (6.4-8.2) Albumin 1.6 g/dL (3.4-5.0) Albumin/Globulin Ratio 0.5 (1.0-1.7) Laboratory Tests Test 02/17/21 06:35 White Blood Count 3.4 x10^3/uL (4.0-11.0) Red Blood Count 2.96 x10^6/uL (4.30-5.70) Hemoglobin 8.9 g/dL (13.0-17.5) Hematocrit 27.1 % (39.0-53.0) Mean Corpuscular Volume 92 fL (79-100) Mean Corpuscular Hemoglobin 30 pg (25-35) Mean Corpuscular Hemoglobin Concent 33 g/dL (31-37) Red Cell Distribution Width 19.4 % (11.5-14.5) Platelet Count 119 x10^3/uL (140-400) Neutrophils (%) (Auto) 41 % (31-73) Lymphocytes (%) (Auto) 35 % (24-48) Monocytes (%) (Auto) 15 % (0-9) Eosinophils (%) (Auto) 9 % (0-3) Basophils (%) (Auto) 1 % (0-3) Neutrophils # (Auto) 1.4 x10^3/uL (1.8-7.7) Lymphocytes # (Auto) 1.2 x10^3/uL (1.0-4.8) Monocytes # (Auto) 0.5 x10^3/uL (0.0-1.1) Eosinophils # (Auto) 0.3 x10^3/uL (0.0-0.7) Basophils # (Auto) 0.0 x10^3/uL (0.0-0.2) Sodium Level 140 mmol/L (136-145) Potassium Level 4.1 mmol/L (3.5-5.1) Chloride Level 110 mmol/L (98-107) Carbon Dioxide Level 23 mmol/L (21-32) Anion Gap 7 (6-14) Blood Urea Nitrogen 10 mg/dL (8-26) Creatinine 0.8 mg/dL (0.7-1.3) Estimated GFR (Cockcroft-Gault) 102.7 BUN/Creatinine Ratio 13 (6-20) Glucose Level 70 mg/dL (70-99) Calcium Level 7.2 mg/dL (8.5-10.1) Total Bilirubin 0.7 mg/dL (0.2-1.0) Aspartate Amino Transf (AST/SGOT) 66 U/L (15-37) Alanine Aminotransferase (ALT/SGPT) 66 U/L (16-63) Alkaline Phosphatase 117 U/L (46-116) Total Protein 5.1 g/dL (6.4-8.2) Albumin 1.6 g/dL (3.4-5.0) Albumin/Globulin Ratio 0.5 (1.0-1.7) Brief Hospital Course Mr Juárez is a 50-year-old male w/ PMHx ETOh use disorder, anxiety, hep c, schizophrenia who presented to the emergency room due to worsening abdominal distention over the past 4 days prior to admission. patient is a known alcoholic was actually seen here about 3 weeks ago for a GI bleed. He was supposed to be taking PPI at home however said he really only takes it intermittently. CT A/P 02/12 with Moderate to large amount of abdominal ascites. Hepatic cirrhosis and findings of portal venous hypertension. (EGD 01/24 with Grade 4 encephalitis from 28 - 35 cm ( no EV) and gastropahty with prepyloric ulcer) Hb 8.9, AST 68, ALT 75/AP 117. Tox positive for cannabnoids. He was noted to have still been drinking, but denies drinking to me. 02/14: Status post paracentesis over 2 L this morning. He is sleeping and easily awakened. He is asking for something "stronger" for pain notes its on his right side. No shortness of breath or chest pain. Was able to eat a couple pancakes this morning no vomiting. Hep C ab positive. Patient notes he tested positive for it previously at [facility]. 02/15: AFP minimally elevated. Gram stain peritoneal fluid negative thus far and PMNs low. He still complaining of "kidney pain". Points to bilateral flanks. Has a good appetite. He is requesting Thorazine. Advised with his pancytopenia which should be held. 02/16: Hep C viral titer 305,000. Preliminary Gram stain abdominal fluid negative. Still with pretty severe pain and worsening swelling of his abdomen Still with pain. Feels a little better overall labs somewhat stable. Plan for outpatient GI follow-up tolerating spironolactone well needs definitive hep C treatment says he stopped drinking 3 weeks ago. He has follow-up at [facility] the [facility] and has been offered follow-up at [facility] GI but will need to continue with sobriety and come to visits in order to have hep C treatment. Problem list: Intractable abdominal pain - due to ascites likely. No signs of SBP apparent Ascites - due to ETOH related cirrhosis, also with Hep C Reflux esophagitis - PPI Prepyloric ulcer - noted previously Anemia - no active bleeding noted, will trend Transaminitis - likely acute alcoholic hepatitis Cirrhosis - due to ETOH and hep C Schizophrenia - previously on zyprexa 20mg, will cont prn Greater than 30 minutes spent on d/c Discharge Information Condition at Discharge: Improved Follow Up: Weeks Disposition/Orders: D/C to Home Scheduled Pantoprazole Sodium (Pantoprazole Sodium ) 40 Mg Tablet., 40 MG PO DAILYAC for GERD for 30 Days, #30 Ref 5 Prescribed by: YOANA HOPSON MD on 02/17/21 1003 Spironolactone (Spironolactone) 100 Mg Tablet, 1 TAB PO DAILY for Cirrhosis for 30 Days, #30 Ref 5 Prescribed by: YOANA HOPSON MD on 02/17/21 1003 Scheduled PRN Melatonin (Melatonin) 3 Mg Capsule, 3 MG PO PRN BFRMEALHC PRN for INSOMNIA, (Reported) Entered as Reported by: MODESTA PRESSLEY on 01/24/21 2180 Last Action: Reviewed on 02/12/21 2291 by NEWTON EVANS Justicifation of Admission Dx: Justifications for Admission: Justification of Admission Dx: Yes YOANA HOPSON MD Feb 17, 2021 10:12
[2021-02-17 11:06] VITALS: BP 100/62
[2021-02-17] MEDS: MAG HYDROX/ALUMINUM HYD/SIMETH 30 ML ORAL.SUSP PO PRN (12:53)
[2021-02-17] MEDS: traMADol 50 MG TABLET PO PRN (12:53)
--- NOTE | 2021-02-17 13:13 | NUR ---
Discharge Note: BENTLEY SHERMAN [address] Discharge instructions and discharge home medications reviewed with Patient and a copy given. All questions have been answered and understanding verbalized. The following instructions and handouts were given: discharge instructions, new prescriptions, education and follow up recommendations. Discontinued lines and drains: Peripheral IV discontinued intact. Patient discharged to Home or Self Care with [facility] Transport Personnel via Wheelchair off unit by MICAELA.
== END 2021-02-17 13:13 | disposition home or self-care (01) | DRG 432 ==
LOC: ER 19:09 → 5 SOUTH 21:12
PROVIDERS: ADMIT Internal Medicine; ATTEND Internal Medicine
PROC: 0W9G3ZZ Drainage of Peritoneal Cavity, Percutaneous Approach (ICD-10-PCS; principal; 2021-02-14)
DX: K70.31 Alcoholic cirrhosis of liver with ascites (principal); E43 Unspecified severe protein-calorie malnutrition; D61.818 Other pancytopenia; K76.6 Portal hypertension; K70.11 Alcoholic hepatitis with ascites; B19.20 Unspecified viral hepatitis C without hepatic coma; F10.10 Alcohol abuse, uncomplicated; F12.90 Cannabis use, unspecified, uncomplicated; F17.200 Nicotine dependence, unspecified, uncomplicated; F20.9 Schizophrenia, unspecified; F41.9 Anxiety disorder, unspecified; G89.29 Other chronic pain; K21.00 Gastro-esophageal reflux disease with esophagitis, without bleeding; K31.89 Other diseases of stomach and duodenum; Z20.822 Contact with and (suspected) exposure to COVID-19; Z86.61 Personal history of infections of the central nervous system; Z87.820 Personal history of traumatic brain injury; Z91.19 Patient's noncompliance with other medical treatment and regimen; K21.9 Gastro-esophageal reflux disease without esophagitis; Z68.22 Body mass index [BMI] 22.0-22.9, adult
CPT/HCPCS: 36415; 49083; 74177; 76705; 80053; 80307; 80329; 81001; 82105; 82945; 83615; 83690; 83735; 84157; 85025; 85027; 85610; 85730; 86705; 86709; 86803; 86850; 86900; 86901; 87071; 87075; 87340; 87522; 88112; 88305; 89050; 90471; 90686; 96374; 96375; G0480; J1644; J2270; J2405; J3010; J3411; J3490; J7030; Q9967; 99285-25; G0378

== ENCOUNTER 2021-02-25 07:30 | Inpatient (IN) | payer MEDICAID ==
[~2021-02-25] VITALS: Ht 172.7 cm; Wt 61.4 kg
[~2021-02-25 07:30] MED LIST changes: +SPIR100T4 PO
--- NOTE | 2021-02-25 08:24 | PHYS DOC ---
Past Medical History Past Medical History: Anxiety, Hepatitis, Schizophrenia, Other Additional Past Medical Histor: TRAUMATIC BRAIN INJURY,BRAIN BLEEDS X 2,HEP C,ESOPHAGEAL VARICES,CIRRHOSIS Past Surgical History: No Surgical History, Other Additional Past Surgical Histo: jaw fracture repair,back surg nos,DRUG SEEKING BEHAVIOR Smoking Status: Current Every Day Smoker Additional Information: 0.25 PPD Alcohol Use: None Drug Use: None, Other General Adult EDM: Chief Complaint: ABDOMINAL PAIN HPI: HPI: 50-year-old male with a past history of alcohol abuse who is not drinking for 1 month presents to the emergency department complaining of nausea vomiting diarrhea and abdominal pain diffusely throughout his abdomen for the past 2 to 3 weeks with intermittent frequency and gradual onset. He reports slight distention to his abdomen. He does admit to a history of cirrhosis secondary to drinking. Denies any blood in the stool, blood in the vomit. He has a fatigue states that he wants to sleep with the lights off. Also admits to feeling sick with flulike symptoms. The patient denies fever, chills, chest pain, shortness of breath, urinary symptoms, cough, recent trauma, or any other complaints. Review of Systems: Review of Systems: ROS otherwise negative except what was mentioned in HPI Heart Score: C/O Chest Pain: No Family History: Family History: Noncontributory Allergies: Allergies: Allergies Coded Allergies Type Severity Reaction Last Updated Verified Penicillins Allergy Intermediate rash 01/24/21 Yes Physical Exam: PE: Constitutional: No acute distress, non-toxic appearance. HENT: Atraumatic, bilateral external ears normal, nose normal. Eyes: PERRLA, EOMI, conjunctiva normal, no discharge. Neck: Normal range of motion, supple, no stridor. Cardiovascular: Heart rate regular rhythm. 2+ radial pulses Lungs & Thorax: No respiratory distress, symmetrical expansion. Abdomen: Soft, distention, mild tenderness there is nonfocal throughout abdomen Skin: Warm, dry. Jaundice. Extremities: No tenderness, no cyanosis, ROM intact, no edema. Neurologic: Alert and oriented X 3, normal motor function, normal sensory function, no focal deficits noted. Non ataxic gait. GCS 15. Psychologic: Affect normal, judgment normal, mood normal. Current Patient Data: Labs: Laboratory Tests Test 02/25/21 07:50 02/25/21 08:39 Urine Collection Type Unknown Urine Color Sanjana Urine Clarity Clear Urine pH 8.5 (<5.0-8.0) Urine Specific [place] >=1.030 (1.000-1.030) Urine Protein 30 mg/dL (NEG-TRACE) Urine Glucose (UA) Negative mg/dL (NEG) Urine Ketones (Stick) Trace mg/dL (NEG) Urine Blood Negative (NEG) Urine Nitrite Negative (NEG) Urine Bilirubin Small (NEG) Urine Urobilinogen Dipstick 1.0 mg/dL (0.2 mg/dL) Urine Leukocyte Esterase Negative (NEG) Urine RBC Rare /HPF (0-2) Urine WBC 0 /HPF (0-4) Urine Squamous Epithelial Cells Mod /LPF Urine Bacteria 0 /HPF (0-FEW) Urine Mucus Marked /LPF Urine Opiates Screen Neg (NEG) Urine Methadone Screen Neg (NEG) Urine Barbiturates Neg (NEG) Urine Phencyclidine Screen Neg (NEG) Urine Amphetamine/Methamphetamine Neg (NEG) Urine Benzodiazepines Screen Pos (NEG) Urine Cocaine Screen Neg (NEG) Urine Cannabinoids Screen Pos (NEG) Urine Ethyl Alcohol Neg (NEG) White Blood Count 4.6 x10^3/uL (4.0-11.0) Red Blood Count 2.93 x10^6/uL (4.30-5.70) Hemoglobin 8.6 g/dL (13.0-17.5) Hematocrit 25.6 % (39.0-53.0) Mean Corpuscular Volume 87 fL (79-100) Mean Corpuscular Hemoglobin 29 pg (25-35) Mean Corpuscular Hemoglobin Concent 33 g/dL (31-37) Red Cell Distribution Width 20.2 % (11.5-14.5) Platelet Count 142 x10^3/uL (140-400) Neutrophils (%) (Auto) 51 % (31-73) Lymphocytes (%) (Auto) 22 % (24-48) Monocytes (%) (Auto) 16 % (0-9) Eosinophils (%) (Auto) 11 % (0-3) Basophils (%) (Auto) 1 % (0-3) Neutrophils # (Auto) 2.3 x10^3/uL (1.8-7.7) Lymphocytes # (Auto) 1.0 x10^3/uL (1.0-4.8) Monocytes # (Auto) 0.7 x10^3/uL (0.0-1.1) Eosinophils # (Auto) 0.5 x10^3/uL (0.0-0.7) Basophils # (Auto) 0.0 x10^3/uL (0.0-0.2) Sodium Level 142 mmol/L (136-145) Potassium Level 3.8 mmol/L (3.5-5.1) Chloride Level 109 mmol/L (98-107) Carbon Dioxide Level 27 mmol/L (21-32) Anion Gap 6 (6-14) Blood Urea Nitrogen 11 mg/dL (8-26) Creatinine 0.8 mg/dL (0.7-1.3) Estimated GFR (Cockcroft-Gault) 102.7 BUN/Creatinine Ratio 14 (6-20) Glucose Level 87 mg/dL (70-99) Calcium Level 7.3 mg/dL (8.5-10.1) Total Bilirubin 0.6 mg/dL (0.2-1.0) Aspartate Amino Transf (AST/SGOT) 64 U/L (15-37) Alanine Aminotransferase (ALT/SGPT) 62 U/L (16-63) Alkaline Phosphatase 168 U/L (46-116) Total Protein 6.0 g/dL (6.4-8.2) Albumin 1.8 g/dL (3.4-5.0) Albumin/Globulin Ratio 0.4 (1.0-1.7) Lipase 273 U/L (73-393) Ethyl Alcohol Level < 10 mg/dL (0-10) Vital Signs: Vital Signs Date Time Temp Pulse Resp B/P (MAP) Pulse Ox O2 Delivery O2 Flow Rate FiO2 02/25/21 07:51 98.2 84 16 124/59 (80) 98 Room Air 98.2 Radiology/Procedures: Radiology/Procedures: Indication: Abdominal pain. Comparison: 02/12/2021. Findings: There is bibasilar atelectasis. There is a trace left basilar effusion. Heart is unenlarged. Liver is shrunken and nodular in appearance consistent with cirrhosis and portal hypertension. Portal vein is enlarged. There is recanalization of the umbilical vein. Spleen is not enlarged. Adrenals kidneys and pancreas are unremarkable in appearance. There is pericholecystic fluid likely secondary to portal hypertension and cirrhosis. Multiple paraesophageal varices are identified. There is diffuse ascites throughout the abdomen. The stomach, small and large bowel are nondistended. No evidence pathologic wall thickening. There are sigmoid diverticula. No free air. Radiologically significant retroperitoneal or mesenteric lymphadenopathy. There is a right- sided hydrocele. Bony structures are unremarkable in appearance. IMPRESSION: 1. Findings consistent with cirrhosis and portal hypertension with diffuse ascites. There is a small left basilar effusion and bibasilar atelectasis. 2. Probable esophageal varices. Recommend correlation with EGD. Course & Med Decision Making: Course & Med Decision Making Patient with evidence for ascites on physical exam, confirmed with CT which also shows possible esophageal varices. Patient hemoglobin is 8.6, liver enzymes are also elevated slightly, likely secondary to alcohol abuse. His alcohol level was negative today, there is no sign of withdrawal. He was resting comfortably and pain was controlled. Will admit him to the hospital for observation for continued management and paracentesis. Patient is nontoxic in presentation Departure Departure Impression: Primary Impression: Ascites due to alcoholic cirrhosis Additional Impression: Esophageal varices in alcoholic cirrhosis Disposition: ADMITTED INPATIENT Admitting Physician: ANDREW (Donny) Condition: STABLE Referrals: NO PCP (PCP) MIKO ANVARRO DO Feb 25, 2021 08:24
[2021-02-25] MEDS ORDERED: IV NORMAL SALINE 1000ML BAG 1,000 ML IV ONE (08:30)
[2021-02-25] MEDS ORDERED: MORPHINE SULFATE 10 MG/ML VIAL. IVP ONE (08:30)
[2021-02-25] MEDS ORDERED: ONDANSETRON PF 4 MG/2 ML VIAL. IVP ONE (08:30)
[2021-02-25 08:49] LABS: BASO % 1 % (0-3); EOS # 0.5 x10^3/uL (0.0-0.7); EOS % 11 % (0-3); HEMATOCRIT 25.6 % (39.0-53.0); HEMOGLOBIN 8.6 g/dL (13.0-17.5); LYMPH % 22 % (24-48); MEAN CORPUSCULAR HEMOGLOBIN 29 pg (25-35); MEAN CORPUSCULAR HGB CONC 33 g/dL (31-37); MEAN CORPUSCULAR VOLUME 87 fL (79-100); MONO # 0.7 x10^3/uL (0.0-1.1); MONO % 16 % (0-9); NEUT # 2.3 x10^3/uL (1.8-7.7); NEUT % 51 % (31-73); PLATELET COUNT 142 x10^3/uL (140-400); RED BLOOD COUNT 2.93 x10^6/uL (4.30-5.70); RED CELL DISTRIBUTION WIDTH 20.2 % (11.5-14.5); WHITE BLOOD COUNT 4.6 x10^3/uL (4.0-11.0)
[2021-02-25 08:57] LABS: CALCIUM 7.3 mg/dL (8.5-10.1); CREATININE 0.8 mg/dL (0.7-1.3); GFR 102.7; POTASSIUM 3.8 mmol/L (3.5-5.1)
[2021-02-25] MEDS ORDERED: CONTRAST GIVEN. MC PRN (09:00)
[2021-02-25] MEDS ORDERED: IOHEXOL 300 MG/ML 100ML VIAL. IV ONE (09:00)
[2021-02-25 09:01] LABS: BILIRUBIN,URINE SMALL (NEG); CLARITY,URINE CLEAR; COLOR,URINE AMBER; NITRITE,URINE NEGATIVE (NEG); PH,URINE 8.5 (<5.0-8.0); PROTEIN,URINE 30 mg/dL (NEG-TRACE)
[2021-02-25 09:03] LABS: ALBUMIN 1.8 g/dL (3.4-5.0); ALBUMIN/GLOBULIN RATIO 0.4 (1.0-1.7); TOTAL BILIRUBIN 0.6 mg/dL (0.2-1.0)
[2021-02-25 09:08] LABS: BACTERIA,URINE 0 /HPF (0-FEW); RBC,URINE RARE /HPF (0-2); WBC,URINE 0 /HPF (0-4)
[2021-02-25 09:10] LABS: BARBITURATES NEG (NEG); BENZODIAZEPINES POS (NEG); CANNABINOIDS POS (NEG); COCAINE NEG (NEG); METHADONE NEG (NEG); OPIATES NEG (NEG); PHENCYCLIDINE NEG (NEG)
[2021-02-25 09:19] LABS: AMPHETAMINE/METHAMPHETAMINE NEG (NEG)
--- NOTE | 2021-02-25 09:50 | RAD ---
Axial CT of the abdomen and pelvis were obtained after the administration of 75 cc Omnipaque 300. Cor onal and sagittal reformats are also available. Indication: Abdominal pain. Comparison: 02/12/2021. Findings: There is bibasilar atelectasis. There is a trace left basilar effusion. Heart is unenlarged. Liver is shrunken and nodular in appearance consistent with cirrhosis and portal hypertension. Portal vein is enlarged. There is recanalization of the umbilical vein. Spleen is not enlarged. Adrenals ki dneys and pancreas are unremarkable in appearance. There is pericholecystic fluid likely secondary to portal hypertension and cirrhosis. Multiple paraesophageal varices are identified. There is diffuse ascites throughout the abdomen. The stomach, small and large bowel are nondistended. No evidence pathologic wall thickening. There ar e sigmoid diverticula. No free air. Radiologically significant retroperitoneal or mesenteric lymphade nopathy. There is a right-sided hydrocele. Bony structures are unremarkable in appearance. IMPRESSION: 1. Findings consistent with cirrhosis and portal hypertension with diffuse ascites. There is a small left basilar effusion and bibasilar atelectasis. 2. Probable esophageal varices. Recommend correlation with EGD. Exposure: One or more of the following individualized dose reduction techniques were utilized for thi s examination: 1. Automated exposure control 2. Adjustment of the mA and/or kV according to patient size 3. Use of iterative reconstruction technique Electronically signed by: Daljit Ocampo MD (02/25/2021 9:48 AM) [id number]
[2021-02-25] MEDS ORDERED: MORPHINE SULFATE 4 MG/ML INJ. IVP PRN (10:00)
[2021-02-25] MEDS ORDERED: ONDANSETRON PF 4 MG/2 ML VIAL. IVP PRN ×2 (10:00→15:15)
[2021-02-25 10:37] LABS: ANISOCYTOSIS SLIGHT; PLT ESTIMATE ADEQUATE (ADEQUATE); TARGET CELLS OCC
--- NOTE | 2021-02-25 11:15 | NUR ---
Patient arrived to floor via bed. Patient alert and oriented occasionally confused and says" Covid lives next door to me" and fight ing with Addy most of the day" said he He saw [facility] this morning and they keep saying he is " complaints of abdominal pain.
--- NOTE | 2021-02-25 13:07 | PDOC ---
Date of Service: DATE: 02/25/21 TIME: 13:07 Subjective: Subjective: Back to ER w/ "swolled" abdomen, also URI symptoms and various areas of pain (back, head, abdomen). First says didn't get Rx medications (pantoprazole, spironolactone) - later says he's taking all his meds. Says no alcohol for over a month - "you can ask my family." ER note mentions n/v and diarrhea. He doesn't report this to me. Was ordering food when I walked in. Third admission since last month. 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 Ascites s/p previous paracentesis (first and only on 02/14 - 2.2L unremarkable fluid studies). Mildly elevated ammonia in past (43). Mildly elevated AFP (9.7). Doppler 02/15: cirrhosis, no focal hepatic lesion. Previously encouraged ongoing sobriety, suggested follow-up w/ [facility] hepatology for Hep C treatment. H/o severe GERD, portal gastropathy, small prepyloric ulcer - EGD last month - path benign, no varices. H/o MARKOS, mild coagulopathy, and abnormal LFTs. Biggest complaint to nurse was difficulty sleeping. Told her wasn't taking meds except melatonin. Objective: Vital Signs: Vital Signs Date Time Temp Pulse Resp B/P (MAP) Pulse Ox O2 Delivery O2 Flow Rate FiO2 02/25/21 10:38 82 16 90/53 (65) 94 Room Air 02/25/21 07:51 98.2 98.2 Labs: Laboratory Tests Test 02/25/21 07:50 02/25/21 08:39 02/25/21 10:38 Urine Collection Type Unknown Urine Color Sanjana Urine Clarity Clear Urine pH 8.5 Urine Specific [place] >=1.030 Urine Protein 30 mg/dL Urine Glucose (UA) Negative mg/dL Urine Ketones (Stick) Trace mg/dL Urine Blood Negative Urine Nitrite Negative Urine Bilirubin Small Urine Urobilinogen Dipstick 1.0 mg/dL Urine Leukocyte Esterase Negative Urine RBC Rare /HPF Urine WBC 0 /HPF Urine Squamous Epithelial Cells Mod /LPF Urine Bacteria 0 /HPF Urine Mucus Marked /LPF Urine Opiates Screen Neg Urine Methadone Screen Neg Urine Barbiturates Neg Urine Phencyclidine Screen Neg Urine Amphetamine/Methamphetamine Neg Urine Benzodiazepines Screen Pos Urine Cocaine Screen Neg Urine Cannabinoids Screen Pos Urine Ethyl Alcohol Neg White Blood Count 4.6 x10^3/uL Red Blood Count 2.93 x10^6/uL Hemoglobin 8.6 g/dL Hematocrit 25.6 % Mean Corpuscular Volume 87 fL Mean Corpuscular Hemoglobin 29 pg Mean Corpuscular Hemoglobin Concent 33 g/dL Red Cell Distribution Width 20.2 % Platelet Count 142 x10^3/uL Neutrophils (%) (Auto) 51 % Lymphocytes (%) (Auto) 22 % Monocytes (%) (Auto) 16 % Eosinophils (%) (Auto) 11 % Basophils (%) (Auto) 1 % Neutrophils # (Auto) 2.3 x10^3/uL Lymphocytes # (Auto) 1.0 x10^3/uL Monocytes # (Auto) 0.7 x10^3/uL Eosinophils # (Auto) 0.5 x10^3/uL Basophils # (Auto) 0.0 x10^3/uL Platelet Estimate Adequate Anisocytosis Slight Target Cells Occ Sodium Level 142 mmol/L Potassium Level 3.8 mmol/L Chloride Level 109 mmol/L Carbon Dioxide Level 27 mmol/L Anion Gap 6 Blood Urea Nitrogen 11 mg/dL Creatinine 0.8 mg/dL Estimated GFR (Cockcroft-Gault) 102.7 BUN/Creatinine Ratio 14 Glucose Level 87 mg/dL Calcium Level 7.3 mg/dL Total Bilirubin 0.6 mg/dL Aspartate Amino Transf (AST/SGOT) 64 U/L Alanine Aminotransferase (ALT/SGPT) 62 U/L Alkaline Phosphatase 168 U/L Total Protein 6.0 g/dL Albumin 1.8 g/dL Albumin/Globulin Ratio 0.4 Lipase 273 U/L Ethyl Alcohol Level < 10 mg/dL SARS-CoV-2 Antigen (Rapid) Negative Imaging: CT A/P 02/25 IMPRESSION: 1. Findings consistent with cirrhosis and portal hypertension with diffuse ascites. There is a small left basilar effusion and bibasilar atelectasis. 2. Probable esophageal varices. Recommend correlation with EGD. PE: GEN: NAD HEENT: Atraumatic, PERRL LUNGS: CTAB HEART: RRR ABD: distended EXTREMITY: No edema SKIN: tattoos NEURO/PSYCH: A & O 3, odd affect A/P: Abdominal discomfort, non-compliance H/o cirrhosis and ascites w/ past paracentesis, mildly elevated AFP H/o Hep C and alcohol abuse (sober x 1 month) MARKOS, abnormal LFTs GERD, h/o PUD CRC screen - none H/o psych issues Rapid COVID negative -- Check INR, ask for paracentesis. GO diet. Resume PPI and spironolactone. Observe for n/v and diarrhea, address as necessary. Justicifation of Admission Dx: Justifications for Admission: Justification of Admission Dx: Yes JOHN HAN Feb 25, 2021 13:07
--- NOTE | 2021-02-25 14:49 | PDOC1 ---
History and Physical Date of Service: DOS: DATE: 02/25/21 TIME: 14:38 Chief Complaint: Chief Complain: Abdominal pain History of Present Illness: HPI: History obtained from discussion with the ED physician and chart review 50-year-old male with past medical history of alcohol abuse and cirrhosis secondary to alcohol and hepatitis C and previous paracentesis on 1025 who comes in complaining of nausea vomiting diarrhea and abdominal pain diffusely for the past 2 to 3 weeks. Patient states that he does take his medications however he has not been taking his diuretic medications. He also states that he has been sober for 1 month from alcohol. Denies any vomiting of blood or constipation. He does endorse some bloody stools and melena The patient denies fever, chills, chest pain, shortness of breath, urinary symptoms, cough, recent trauma, or any other complaints. Past Medical/Surgical History: PMH/PSH: Past Medical History: Anxiety, Hepatitis, Schizophrenia, TRAUMATIC BRAIN INJURY,BRAIN BLEEDS X 2,HEP C,ESOPHAGEAL VARICES,CIRRHOSIS Past Surgical History: jaw fracture repair,back surg nos,DRUG SEEKING BEHAVIOR Allergies: Allergies: Coded Allergies: Penicillins (Verified Allergy, Intermediate, rash, 01/24/21) Family History: Family History: Reviewed with no relevant findings Social History: Social History: Smoking Status: Current Every Day Smoker Additional Information: 0.25 PPD Alcohol Use: None Drug Use: None, Other Current Medications: Current Medications Current Medications Sodium Chloride 1,000 ml @ 1,000 mls/hr 1X ONCE IV Last administered on 02/25/21at 08:56; Start 02/25/21 at 08:30; Stop 02/25/21 at 09:29; Status DC Ondansetron HCl (Zofran) 4 mg 1X ONCE IVP Last administered on 02/25/21at 08:56; Start 02/25/21 at 08:30; Stop 02/25/21 at 08:31; Status DC Morphine Sulfate (Morphine Sulfate) 5 mg 1X ONCE IVP Last administered on 02/25/21at 08:57; Start 02/25/21 at 08:30; Stop 02/25/21 at 08:31; Status DC Iohexol (Omnipaque 300 Mg/ml) 75 ml 1X ONCE IV Last administered on 02/25/21at 09:11; Start 02/25/21 at 09:00; Stop 02/25/21 at 09:01; Status DC Info (CONTRAST GIVEN -- Rx MONITORING) 1 each PRN DAILY PRN MC SEE COMMENTS; Start 02/25/21 at 09:00; Stop 02/27/21 at 08:59 Ondansetron HCl (Zofran) 4 mg PRN Q8HRS PRN IVP NAUSEA/VOMITING; Start 02/25/21 at 10:00; Stop 02/26/21 at 09:59 Morphine Sulfate (Morphine Sulfate) 4 mg PRN Q2HR PRN IVP PAIN; Start 02/25/21 at 10:00; Stop 02/26/21 at 09:59 Pantoprazole Sodium (Protonix) 40 mg DAILYAC PO ; Start 02/26/21 at 07:30 Spironolactone (Aldactone) 100 mg DAILY PO ; Start 02/26/21 at 09:00 Active Scripts Active Pantoprazole Sodium (Pantoprazole Sodium) 40 Mg Tablet.dr 40 Mg PO DAILYAC 30 Days Spironolactone 100 Mg Tablet 1 Tab PO DAILY 30 Days Reported Melatonin 3 Mg Capsule 3 Mg PO PRN BFRMEALHC PRN ROS: Review of Systems Review of System REVIEW OF SYSTEMS: GENERAL: Denies weakness SKIN: No bruising, hair changes or rashes. EYES: No blurred, double or loss of vision. NOSE AND THROAT: No history of nosebleeds, hoarseness or sore throat. HEART: No history of palpitations, chest pain or shortness of breath on exertion. LUNGS: Denies cough, hemoptysis, wheezing or shortness of breath. GASTROINTESTINAL: Positive nausea vomiting and abdominal pain GENITOURINARY: No history of frequency, urgency, hesitancy or nocturia. NEUROLOGIC: Denies history of numbness, tingling, or tremor. PSYCHIATRIC: No history of panic, anxiety or depression. ENDOCRINE: No history of heat or cold intolerance, polyuria or polydipsia. EXTREMITIES: Denies joint pain, pain on walking or stiffness. Physical Exam: Vital Signs: Vital Signs Date Time Temp Pulse Resp B/P (MAP) Pulse Ox O2 Delivery O2 Flow Rate FiO2 02/25/21 10:38 82 16 90/53 (65) 94 Room Air 02/25/21 07:51 98.2 98.2 Physcial Exam: General: Well developed, well nourished, no acute distress, well appearing HEENT: Pupils equally round and reactive to light, EOMI, no discharge, normal conjunctiva Neck: Supple, no nuchal rigidity, no JVD, trachea midline, no tenderness Cardiac: RRR, no murmurs, no gallops, no rubs Chest/Lungs: CTAB, no wheeze, no rhonchi, no crackles Abdomen: soft, diffusely distended, no guarding, no peritoneal signs, non-tender Back: No tenderness Extremities: no edema, pulses intact, non-tender,capillary refill <3 sec bilateral upper and lower extremities, Neuro: Alert and oriented x 4, no focal deficits, normal speech Labs: Labs: Laboratory Tests Test 02/25/21 07:50 02/25/21 08:39 02/25/21 10:38 Urine Collection Type Unknown Urine Color Sanjana Urine Clarity Clear Urine pH 8.5 (<5.0-8.0) Urine Specific [place] >=1.030 (1.000-1.030) Urine Protein 30 mg/dL (NEG-TRACE) Urine Glucose (UA) Negative mg/dL (NEG) Urine Ketones (Stick) Trace mg/dL (NEG) Urine Blood Negative (NEG) Urine Nitrite Negative (NEG) Urine Bilirubin Small (NEG) Urine Urobilinogen Dipstick 1.0 mg/dL (0.2 mg/dL) Urine Leukocyte Esterase Negative (NEG) Urine RBC Rare /HPF (0-2) Urine WBC 0 /HPF (0-4) Urine Squamous Epithelial Cells Mod /LPF Urine Bacteria 0 /HPF (0-FEW) Urine Mucus Marked /LPF Urine Opiates Screen Neg (NEG) Urine Methadone Screen Neg (NEG) Urine Barbiturates Neg (NEG) Urine Phencyclidine Screen Neg (NEG) Urine Amphetamine/Methamphetamine Neg (NEG) Urine Benzodiazepines Screen Pos (NEG) Urine Cocaine Screen Neg (NEG) Urine Cannabinoids Screen Pos (NEG) Urine Ethyl Alcohol Neg (NEG) White Blood Count 4.6 x10^3/uL (4.0-11.0) Red Blood Count 2.93 x10^6/uL (4.30-5.70) Hemoglobin 8.6 g/dL (13.0-17.5) Hematocrit 25.6 % (39.0-53.0) Mean Corpuscular Volume 87 fL (79-100) Mean Corpuscular Hemoglobin 29 pg (25-35) Mean Corpuscular Hemoglobin Concent 33 g/dL (31-37) Red Cell Distribution Width 20.2 % (11.5-14.5) Platelet Count 142 x10^3/uL (140-400) Neutrophils (%) (Auto) 51 % (31-73) Lymphocytes (%) (Auto) 22 % (24-48) Monocytes (%) (Auto) 16 % (0-9) Eosinophils (%) (Auto) 11 % (0-3) Basophils (%) (Auto) 1 % (0-3) Neutrophils # (Auto) 2.3 x10^3/uL (1.8-7.7) Lymphocytes # (Auto) 1.0 x10^3/uL (1.0-4.8) Monocytes # (Auto) 0.7 x10^3/uL (0.0-1.1) Eosinophils # (Auto) 0.5 x10^3/uL (0.0-0.7) Basophils # (Auto) 0.0 x10^3/uL (0.0-0.2) Platelet Estimate Adequate (ADEQUATE) Anisocytosis Slight Target Cells Occ Sodium Level 142 mmol/L (136-145) Potassium Level 3.8 mmol/L (3.5-5.1) Chloride Level 109 mmol/L (98-107) Carbon Dioxide Level 27 mmol/L (21-32) Anion Gap 6 (6-14) Blood Urea Nitrogen 11 mg/dL (8-26) Creatinine 0.8 mg/dL (0.7-1.3) Estimated GFR (Cockcroft-Gault) 102.7 BUN/Creatinine Ratio 14 (6-20) Glucose Level 87 mg/dL (70-99) Calcium Level 7.3 mg/dL (8.5-10.1) Total Bilirubin 0.6 mg/dL (0.2-1.0) Aspartate Amino Transf (AST/SGOT) 64 U/L (15-37) Alanine Aminotransferase (ALT/SGPT) 62 U/L (16-63) Alkaline Phosphatase 168 U/L (46-116) Total Protein 6.0 g/dL (6.4-8.2) Albumin 1.8 g/dL (3.4-5.0) Albumin/Globulin Ratio 0.4 (1.0-1.7) Lipase 273 U/L (73-393) Ethyl Alcohol Level < 10 mg/dL (0-10) SARS-CoV-2 Antigen (Rapid) Negative (NEGATIVE) Laboratory Tests Test 02/25/21 07:50 02/25/21 08:39 02/25/21 10:38 Urine Collection Type Unknown Urine Color Sanjana Urine Clarity Clear Urine pH 8.5 (<5.0-8.0) Urine Specific [place] >=1.030 (1.000-1.030) Urine Protein 30 mg/dL (NEG-TRACE) Urine Glucose (UA) Negative mg/dL (NEG) Urine Ketones (Stick) Trace mg/dL (NEG) Urine Blood Negative (NEG) Urine Nitrite Negative (NEG) Urine Bilirubin Small (NEG) Urine Urobilinogen Dipstick 1.0 mg/dL (0.2 mg/dL) Urine Leukocyte Esterase Negative (NEG) Urine RBC Rare /HPF (0-2) Urine WBC 0 /HPF (0-4) Urine Squamous Epithelial Cells Mod /LPF Urine Bacteria 0 /HPF (0-FEW) Urine Mucus Marked /LPF Urine Opiates Screen Neg (NEG) Urine Methadone Screen Neg (NEG) Urine Barbiturates Neg (NEG) Urine Phencyclidine Screen Neg (NEG) Urine Amphetamine/Methamphetamine Neg (NEG) Urine Benzodiazepines Screen Pos (NEG) Urine Cocaine Screen Neg (NEG) Urine Cannabinoids Screen Pos (NEG) Urine Ethyl Alcohol Neg (NEG) White Blood Count 4.6 x10^3/uL (4.0-11.0) Red Blood Count 2.93 x10^6/uL (4.30-5.70) Hemoglobin 8.6 g/dL (13.0-17.5) Hematocrit 25.6 % (39.0-53.0) Mean Corpuscular Volume 87 fL (79-100) Mean Corpuscular Hemoglobin 29 pg (25-35) Mean Corpuscular Hemoglobin Concent 33 g/dL (31-37) Red Cell Distribution Width 20.2 % (11.5-14.5) Platelet Count 142 x10^3/uL (140-400) Neutrophils (%) (Auto) 51 % (31-73) Lymphocytes (%) (Auto) 22 % (24-48) Monocytes (%) (Auto) 16 % (0-9) Eosinophils (%) (Auto) 11 % (0-3) Basophils (%) (Auto) 1 % (0-3) Neutrophils # (Auto) 2.3 x10^3/uL (1.8-7.7) Lymphocytes # (Auto) 1.0 x10^3/uL (1.0-4.8) Monocytes # (Auto) 0.7 x10^3/uL (0.0-1.1) Eosinophils # (Auto) 0.5 x10^3/uL (0.0-0.7) Basophils # (Auto) 0.0 x10^3/uL (0.0-0.2) Platelet Estimate Adequate (ADEQUATE) Anisocytosis Slight Target Cells Occ Sodium Level 142 mmol/L (136-145) Potassium Level 3.8 mmol/L (3.5-5.1) Chloride Level 109 mmol/L (98-107) Carbon Dioxide Level 27 mmol/L (21-32) Anion Gap 6 (6-14) Blood Urea Nitrogen 11 mg/dL (8-26) Creatinine 0.8 mg/dL (0.7-1.3) Estimated GFR (Cockcroft-Gault) 102.7 BUN/Creatinine Ratio 14 (6-20) Glucose Level 87 mg/dL (70-99) Calcium Level 7.3 mg/dL (8.5-10.1) Total Bilirubin 0.6 mg/dL (0.2-1.0) Aspartate Amino Transf (AST/SGOT) 64 U/L (15-37) Alanine Aminotransferase (ALT/SGPT) 62 U/L (16-63) Alkaline Phosphatase 168 U/L (46-116) Total Protein 6.0 g/dL (6.4-8.2) Albumin 1.8 g/dL (3.4-5.0) Albumin/Globulin Ratio 0.4 (1.0-1.7) Lipase 273 U/L (73-393) Ethyl Alcohol Level < 10 mg/dL (0-10) SARS-CoV-2 Antigen (Rapid) Negative (NEGATIVE) Images: Images PROCEDURE: CT ABD PELV W/ IV CONTRST ONLY IMPRESSION: 1. Findings consistent with cirrhosis and portal hypertension with diffuse ascites. There is a small left basilar effusion and bibasilar atelectasis. 2. Probable esophageal varices. Recommend correlation with EGD. Assessment/Plan Assessment/Plan Acute abdominal pain secondary to cirrhosis with diffuse ascites Anemia of chronic disease, likely related to alcohol abuse Severe protein malnutrition Cannabinoid positivity History of medical nonadherence History of hepatitis C infection, went to hepatology for hep C treatment History of alcohol abuse History of severe GERD, portal gastropathy Admit to hospitalist services for observation Pending paracentesis N.p.o. for now Will likely need diuresis at time of discharge Propranolol may be indicated in the future once patient is definitively diagn osed with esophageal varices SCD for DVT prophylaxis Protonix GI prophylaxis ADA diet CODE STATUS full Discussed with RN and SW Disposition paracentesis DPOA: Brother Smoking cessation: Total time spent was 12 minutes in face to face counseling. Patient has agreed to consider nicotine patches/gum or to start on Varnicline when discharged Justifications for Admission Other Justification BELEN MEJIA MD Feb 25, 2021 14:49
[2021-02-25] MEDS ORDERED: PROCHLORPERAZINE 10 MG/2 ML VIAL. IV PRN (15:15)
[2021-02-25] MEDS ORDERED: DOCUSATE SODIUM 100 MG CAPSULE. PO PRN (15:15)
[2021-02-25] MEDS ORDERED: DEXTROSE 50% 25 GM / 50ML DISP.SYRIN. IV PRN (15:15)
[2021-02-25] MEDS ORDERED: SENNOSIDES 8.6 MG TABLET PO PRN (15:15)
[2021-02-25] MEDS ORDERED: ACETAMINOPHEN 325 MG TABLET. PO PRN (15:15)
[2021-02-25 15:19] VITALS: BP 97/42
[2021-02-25 15:35] VITALS: BP 91/47
--- NOTE | 2021-02-25 15:38 | NUR ---
Pt to IR for paracentesis, 3300cc output, pt tolerated procedure without difficulty, VSS, dressing dry and intact
--- NOTE | 2021-02-25 16:07 | RAD ---
Procedure: Paracentesis. Clinical Indication: Adult male requiring paracentesis for abdominal ascites, fullness. Medications: Local anesthesia only Technique and Findings: Following informed consent, the patient was prepped and draped in the usual s terile fashion. 2% lidocaine was used to achieve local anesthesia over the right lower quadrant of th e abdomen. Ultrasound interrogation of the abdomen was performed, and demonstrated free ascites. A sm all skin incision was made and a Ouse-[id number]-[id number] catheter was advanced under ultrasound guidance into the peritoneal cavity. 3.3 liters of thin asad ascites was then removed. The catheter was removed a nd hemostasis was readily achieved with manual compression. The patient tolerated the procedure well and left the radiology department in stable condition. Impression: 1. Paracentesis as described. Electronically signed by: Barrett Kamara MD (02/25/2021 4:05 PM) [id number]
[2021-02-25 17:34] LABS: PROTHROMBIN TIME PATIENT 16.2 SEC (11.7-14.0)
[2021-02-25 17:57] LABS: BF CLARITY CLEAR; BF COLOR COLORLESS; BF SOURCE ASCITES
[2021-02-25 17:58] LABS: BF MON % 69 %; BF OTHER % 9 %; BF PMN % 22 %; BF RBC COUNT 10 /cmm (Not Established); BF WBC COUNT 101 /cmm (Not Established)
[2021-02-25 19:27] VITALS: BP 85/46
[2021-02-25] MEDS: ZOLPIDEM 5 MG TABLET. PO PRN (20:08)
[2021-02-25] MEDS: LORazepam 0.5 MG TABLET PO PRN (20:09)
[2021-02-25 23:09] VITALS: BP 93/58
[2021-02-26 03:12] VITALS: BP 108/68
[2021-02-26 03:25] LABS: BASO % 1 % (0-3); EOS # 0.4 x10^3/uL (0.0-0.7); EOS % 11 % (0-3); HEMOGLOBIN 8.7 g/dL (13.0-17.5); LYMPH # 1.3 x10^3/uL (1.0-4.8); LYMPH % 33 % (24-48); MEAN CORPUSCULAR HEMOGLOBIN 29 pg (25-35); MEAN CORPUSCULAR HGB CONC 32 g/dL (31-37); MEAN CORPUSCULAR VOLUME 88 fL (79-100); MONO # 0.5 x10^3/uL (0.0-1.1); MONO % 14 % (0-9); NEUT # 1.6 x10^3/uL (1.8-7.7); NEUT % 41 % (31-73); PLATELET COUNT 153 x10^3/uL (140-400); RED BLOOD COUNT 3.06 x10^6/uL (4.30-5.70); RED CELL DISTRIBUTION WIDTH 20.6 % (11.5-14.5); WHITE BLOOD COUNT 3.9 x10^3/uL (4.0-11.0)
[2021-02-26 03:52] LABS: MAGNESIUM 1.9 mg/dL (1.8-2.4); PHOSPHORUS 4.1 mg/dL (2.6-4.7)
[2021-02-26 04:00] LABS: ALBUMIN 1.6 g/dL (3.4-5.0); ALBUMIN/GLOBULIN RATIO 0.4 (1.0-1.7); CALCIUM 7.1 mg/dL (8.5-10.1); CREATININE 0.9 mg/dL (0.7-1.3); GFR 89.7; POTASSIUM 4.1 mmol/L (3.5-5.1); TOTAL BILIRUBIN 0.5 mg/dL (0.2-1.0); TOTAL PROTEIN 5.6 g/dL (6.4-8.2)
[2021-02-26 07:00] VITALS: BP 95/52
[2021-02-26] MEDS: LORazepam 0.5 MG TABLET PO PRN ×2 (07:59→14:44)
[2021-02-26] MEDS: FUROSEMIDE 40 MG TABLET. PO SCH (07:59)
[2021-02-26] MEDS: PANTOPRAZOLE 40 MG TABLET.DR. PO SCH (07:59)
[2021-02-26] MEDS: SPIRONOLACTONE 25 MG TABLET PO SCH (07:59)
[2021-02-26 11:00] VITALS: BP 107/55
--- NOTE | 2021-02-26 12:14 | PDOC ---
G I PROGRESS NOTE Subjective Still with some abdominal pain but better. Objective Got paracentesis yesterday. Physical Exam Lungs clear. RRR Abdomen softer. Review of Relevant I have reviewed the following items reese (where applicable) has been applied. Labs Laboratory Tests Test 02/25/21 07:50 02/25/21 08:39 02/25/21 10:38 02/25/21 15:30 Urine Collection Type Unknown Urine Color Sanjana Urine Clarity Clear Urine pH 8.5 (<5.0-8.0) Urine Specific [place] >=1.030 (1.000-1.030) Urine Protein 30 mg/dL (NEG-TRACE) Urine Glucose (UA) Negative mg/dL (NEG) Urine Ketones (Stick) Trace mg/dL (NEG) Urine Blood Negative (NEG) Urine Nitrite Negative (NEG) Urine Bilirubin Small (NEG) Urine Urobilinogen Dipstick 1.0 mg/dL (0.2 mg/dL) Urine Leukocyte Esterase Negative (NEG) Urine RBC Rare /HPF (0-2) Urine WBC 0 /HPF (0-4) Urine Squamous Epithelial Cells Mod /LPF Urine Bacteria 0 /HPF (0-FEW) Urine Mucus Marked /LPF Urine Opiates Screen Neg (NEG) Urine Methadone Screen Neg (NEG) Urine Barbiturates Neg (NEG) Urine Phencyclidine Screen Neg (NEG) Urine Amphetamine/Methamphetamine Neg (NEG) Urine Benzodiazepines Screen Pos (NEG) Urine Cocaine Screen Neg (NEG) Urine Cannabinoids Screen Pos (NEG) Urine Ethyl Alcohol Neg (NEG) White Blood Count 4.6 x10^3/uL (4.0-11.0) Red Blood Count 2.93 x10^6/uL (4.30-5.70) Hemoglobin 8.6 g/dL (13.0-17.5) Hematocrit 25.6 % (39.0-53.0) Mean Corpuscular Volume 87 fL (79-100) Mean Corpuscular Hemoglobin 29 pg (25-35) Mean Corpuscular Hemoglobin Concent 33 g/dL (31-37) Red Cell Distribution Width 20.2 % (11.5-14.5) Platelet Count 142 x10^3/uL (140-400) Neutrophils (%) (Auto) 51 % (31-73) Lymphocytes (%) (Auto) 22 % (24-48) Monocytes (%) (Auto) 16 % (0-9) Eosinophils (%) (Auto) 11 % (0-3) Basophils (%) (Auto) 1 % (0-3) Neutrophils # (Auto) 2.3 x10^3/uL (1.8-7.7) Lymphocytes # (Auto) 1.0 x10^3/uL (1.0-4.8) Monocytes # (Auto) 0.7 x10^3/uL (0.0-1.1) Eosinophils # (Auto) 0.5 x10^3/uL (0.0-0.7) Basophils # (Auto) 0.0 x10^3/uL (0.0-0.2) Platelet Estimate Adequate (ADEQUATE) Anisocytosis Slight Target Cells Occ Sodium Level 142 mmol/L (136-145) Potassium Level 3.8 mmol/L (3.5-5.1) Chloride Level 109 mmol/L (98-107) Carbon Dioxide Level 27 mmol/L (21-32) Anion Gap 6 (6-14) Blood Urea Nitrogen 11 mg/dL (8-26) Creatinine 0.8 mg/dL (0.7-1.3) Estimated GFR (Cockcroft-Gault) 102.7 BUN/Creatinine Ratio 14 (6-20) Glucose Level 87 mg/dL (70-99) Calcium Level 7.3 mg/dL (8.5-10.1) Total Bilirubin 0.6 mg/dL (0.2-1.0) Aspartate Amino Transf (AST/SGOT) 64 U/L (15-37) Alanine Aminotransferase (ALT/SGPT) 62 U/L (16-63) Alkaline Phosphatase 168 U/L (46-116) Total Protein 6.0 g/dL (6.4-8.2) Albumin 1.8 g/dL (3.4-5.0) Albumin/Globulin Ratio 0.4 (1.0-1.7) Lipase 273 U/L (73-393) Ethyl Alcohol Level < 10 mg/dL (0-10) SARS-CoV-2 RNA (ELBA) Negative (Negative) SARS-CoV-2 Antigen (Rapid) Negative (NEGATIVE) Body Fluid Source Ascites Body Fluid Color Colorless Body Fluid Clarity Clear Body Fluid Nucleated Cells 101 /cmm (Not Established) Body Fluid Mononuclear WBCs (%) 69 % Body Fluid Polymorphonuclear Cells 22 % Body Fluid Total RBCs Counted 10 /cmm (Not Established) Body Fluid Other Cells (%) 9 % Test 02/25/21 17:15 02/26/21 03:00 Prothrombin Time 16.2 SEC (11.7-14.0) Prothromb Time International Ratio 1.3 (0.8-1.1) White Blood Count 3.9 x10^3/uL (4.0-11.0) Red Blood Count 3.06 x10^6/uL (4.30-5.70) Hemoglobin 8.7 g/dL (13.0-17.5) Hematocrit 27.0 % (39.0-53.0) Mean Corpuscular Volume 88 fL (79-100) Mean Corpuscular Hemoglobin 29 pg (25-35) Mean Corpuscular Hemoglobin Concent 32 g/dL (31-37) Red Cell Distribution Width 20.6 % (11.5-14.5) Platelet Count 153 x10^3/uL (140-400) Neutrophils (%) (Auto) 41 % (31-73) Lymphocytes (%) (Auto) 33 % (24-48) Monocytes (%) (Auto) 14 % (0-9) Eosinophils (%) (Auto) 11 % (0-3) Basophils (%) (Auto) 1 % (0-3) Neutrophils # (Auto) 1.6 x10^3/uL (1.8-7.7) Lymphocytes # (Auto) 1.3 x10^3/uL (1.0-4.8) Monocytes # (Auto) 0.5 x10^3/uL (0.0-1.1) Eosinophils # (Auto) 0.4 x10^3/uL (0.0-0.7) Basophils # (Auto) 0.0 x10^3/uL (0.0-0.2) Sodium Level 142 mmol/L (136-145) Potassium Level 4.1 mmol/L (3.5-5.1) Chloride Level 110 mmol/L (98-107) Carbon Dioxide Level 27 mmol/L (21-32) Anion Gap 5 (6-14) Blood Urea Nitrogen 11 mg/dL (8-26) Creatinine 0.9 mg/dL (0.7-1.3) Estimated GFR (Cockcroft-Gault) 89.7 BUN/Creatinine Ratio 12 (6-20) Glucose Level 82 mg/dL (70-99) Calcium Level 7.1 mg/dL (8.5-10.1) Phosphorus Level 4.1 mg/dL (2.6-4.7) Magnesium Level 1.9 mg/dL (1.8-2.4) Total Bilirubin 0.5 mg/dL (0.2-1.0) Aspartate Amino Transf (AST/SGOT) 63 U/L (15-37) Alanine Aminotransferase (ALT/SGPT) 57 U/L (16-63) Alkaline Phosphatase 152 U/L (46-116) Total Protein 5.6 g/dL (6.4-8.2) Albumin 1.6 g/dL (3.4-5.0) Albumin/Globulin Ratio 0.4 (1.0-1.7) Laboratory Tests Test 02/25/21 15:30 02/25/21 17:15 02/26/21 03:00 Body Fluid Source Ascites Body Fluid Color Colorless Body Fluid Clarity Clear Body Fluid Nucleated Cells 101 /cmm (Not Established) Body Fluid Mononuclear WBCs (%) 69 % Body Fluid Polymorphonuclear Cells 22 % Body Fluid Total RBCs Counted 10 /cmm (Not Established) Body Fluid Other Cells (%) 9 % Prothrombin Time 16.2 SEC (11.7-14.0) Prothromb Time International Ratio 1.3 (0.8-1.1) White Blood Count 3.9 x10^3/uL (4.0-11.0) Red Blood Count 3.06 x10^6/uL (4.30-5.70) Hemoglobin 8.7 g/dL (13.0-17.5) Hematocrit 27.0 % (39.0-53.0) Mean Corpuscular Volume 88 fL (79-100) Mean Corpuscular Hemoglobin 29 pg (25-35) Mean Corpuscular Hemoglobin Concent 32 g/dL (31-37) Red Cell Distribution Width 20.6 % (11.5-14.5) Platelet Count 153 x10^3/uL (140-400) Neutrophils (%) (Auto) 41 % (31-73) Lymphocytes (%) (Auto) 33 % (24-48) Monocytes (%) (Auto) 14 % (0-9) Eosinophils (%) (Auto) 11 % (0-3) Basophils (%) (Auto) 1 % (0-3) Neutrophils # (Auto) 1.6 x10^3/uL (1.8-7.7) Lymphocytes # (Auto) 1.3 x10^3/uL (1.0-4.8) Monocytes # (Auto) 0.5 x10^3/uL (0.0-1.1) Eosinophils # (Auto) 0.4 x10^3/uL (0.0-0.7) Basophils # (Auto) 0.0 x10^3/uL (0.0-0.2) Sodium Level 142 mmol/L (136-145) Potassium Level 4.1 mmol/L (3.5-5.1) Chloride Level 110 mmol/L (98-107) Carbon Dioxide Level 27 mmol/L (21-32) Anion Gap 5 (6-14) Blood Urea Nitrogen 11 mg/dL (8-26) Creatinine 0.9 mg/dL (0.7-1.3) Estimated GFR (Cockcroft-Gault) 89.7 BUN/Creatinine Ratio 12 (6-20) Glucose Level 82 mg/dL (70-99) Calcium Level 7.1 mg/dL (8.5-10.1) Phosphorus Level 4.1 mg/dL (2.6-4.7) Magnesium Level 1.9 mg/dL (1.8-2.4) Total Bilirubin 0.5 mg/dL (0.2-1.0) Aspartate Amino Transf (AST/SGOT) 63 U/L (15-37) Alanine Aminotransferase (ALT/SGPT) 57 U/L (16-63) Alkaline Phosphatase 152 U/L (46-116) Total Protein 5.6 g/dL (6.4-8.2) Albumin 1.6 g/dL (3.4-5.0) Albumin/Globulin Ratio 0.4 (1.0-1.7) Ascites studies not suggestive of SBP. Vitals/I & O Vital Sign - Last 24 Hours 02/25/21 02/25/21 02/25/21 02/25/21 15:19 15:35 19:27 20:00 Temp 98.1 98.1 Pulse 74 70 78 Resp 20 16 16 B/P (MAP) 97/42 (60) 91/47 (62) 85/46 (59) Pulse Ox 97 97 96 O2 Delivery Room Air Room Air Room Air Room Air 02/25/21 02/25/21 02/25/21 02/26/21 20:09 20:44 23:09 03:12 Temp 98.2 98.2 98.2 98.2 Pulse 77 81 Resp 16 16 B/P (MAP) 93/58 (70) 108/68 (81) Pulse Ox 94 95 O2 Delivery Room Air Room Air Room Air Room Air 02/26/21 02/26/21 02/26/21 07:00 08:00 11:00 Temp 98.0 98.3 98.0 98.3 Pulse 72 93 Resp 18 17 B/P (MAP) 95/52 (66) 107/55 (72) Pulse Ox 95 97 O2 Delivery Room Air Room Air Room Air Intake and Output 02/25/21 02/25/21 02/26/21 15:00 23:00 07:00 Intake Total 1000 ml 520 ml Output Total 3300 ml Balance 1000 ml -3300 ml 520 ml Problem List Problems Medical Problems: (1) Ascites due to alcoholic cirrhosis Status: Acute (2) Esophageal varices in alcoholic cirrhosis Status: Acute Assessment Cirrhosis-->ascites. Did not have varices at EGD a month ago. Plan of Care Note Diurese. Will take a few days to see full effect of spironolactone. Adjust dosages to 1-2 lbs/day loss. Monitor electrolytes on diuresis. Justicifation of Admission Dx: Justifications for Admission: Justification of Admission Dx: Yes RYLIE CANTU MD Feb 26, 2021 12:14
[2021-02-26] MEDS: oxyCODONE/APAP 5/325 1 TAB TABLET PO PRN ×2 (13:34→22:10)
[2021-02-26 14:00] VITALS: BP 103/59
[2021-02-26 19:00] VITALS: BP 102/58
[2021-02-26 23:00] VITALS: BP 90/46
[2021-02-27 01:35] VITALS: BP 97/57
[2021-02-27 03:00] VITALS: BP 103/42
[2021-02-27 07:00] VITALS: BP 85/34
[2021-02-27 07:34] LABS: BASO % 1 % (0-3); EOS # 0.3 x10^3/uL (0.0-0.7); EOS % 9 % (0-3); HEMATOCRIT 25.4 % (39.0-53.0); HEMOGLOBIN 8.2 g/dL (13.0-17.5); LYMPH # 1.3 x10^3/uL (1.0-4.8); LYMPH % 36 % (24-48); MEAN CORPUSCULAR HEMOGLOBIN 28 pg (25-35); MEAN CORPUSCULAR HGB CONC 32 g/dL (31-37); MEAN CORPUSCULAR VOLUME 87 fL (79-100); MONO # 0.6 x10^3/uL (0.0-1.1); MONO % 16 % (0-9); NEUT # 1.3 x10^3/uL (1.8-7.7); NEUT % 38 % (31-73); PLATELET COUNT 138 x10^3/uL (140-400); RED BLOOD COUNT 2.92 x10^6/uL (4.30-5.70); RED CELL DISTRIBUTION WIDTH 20.7 % (11.5-14.5); WHITE BLOOD COUNT 3.5 x10^3/uL (4.0-11.0)
[2021-02-27] MEDS: PANTOPRAZOLE 40 MG TABLET.DR. PO SCH ×2 (07:37→08:21)
[2021-02-27 07:54] LABS: CALCIUM 7.2 mg/dL (8.5-10.1); GFR 79.4
[2021-02-27] MEDS: FUROSEMIDE 40 MG TABLET. PO SCH (08:21)
[2021-02-27] MEDS: SPIRONOLACTONE 25 MG TABLET PO SCH (08:21)
[2021-02-27] MEDS: oxyCODONE/APAP 5/325 1 TAB TABLET PO PRN ×2 (08:24→17:35)
--- NOTE | 2021-02-27 09:18 | PDOC ---
[facility] [facility] PROGRESS NOTE Date of Service DOS: DATE: 02/27/21 TIME: 09:15 Chief Complaint Chief Complaint Acute abdominal pain secondary to cirrhosis with diffuse ascites Anemia of chronic disease, likely related to alcohol abuse Severe protein malnutrition Cannabinoid positivity History of medical nonadherence History of hepatitis C infection, went to hepatology for hep C treatment History of alcohol abuse History of severe GERD, portal gastropathy s/p paracentesis Continue diuresis SCD for DVT prophylaxis Protonix GI prophylaxis ADA diet CODE STATUS full Discussed with RN and SW Disposition paracentesis DPOA: Brother History of Present Illness History of Present Illness History obtained from discussion with the ED physician and chart review 50-year-old male with past medical history of alcohol abuse and cirrhosis secondary to alcohol and hepatitis C and previous paracentesis on 1025 who comes in complaining of nausea vomiting diarrhea and abdominal pain diffusely for the past 2 to 3 weeks. Patient states that he does take his medications however he has not been taking his diuretic medications. He also states that he has been sober for 1 month from alcohol. Denies any vomiting of blood or constipation. He does endorse some bloody stools and melena The patient denies fever, chills, chest pain, shortness of breath, urinary symptoms, cough, recent trauma, or any other complaints. 02/26 Late entry for February 26 Patient evaluated and examined at bedside. Was complaining of some abdominal pain still. Reviewed results of paracentesis do not see any results consistent with SBP. He is still pretty distended but he said he feels like he does have more fluid. Will keep admitted to see if another tablet needed. I am happy to perform at bedside over the weekend if needed. Vitals/I&O Vitals/I&O: Vital Signs Date Time Temp Pulse Resp B/P (MAP) Pulse Ox O2 Delivery O2 Flow Rate FiO2 02/27/21 08:24 Room Air 02/27/21 07:00 98.0 87 16 85/34 (51) 92 98.0 I & O 02/26/21 02/26/21 02/27/21 15:00 23:00 07:00 Intake Total 300 ml 540 ml Balance 300 ml 540 ml Physical Exam General: Alert, Oriented X3, Cooperative Heart: Regular rate Lungs: Clear Abdomen: Normal bowel sounds, Soft, Other (distended, mild tenderness) Extremities: No edema, Normal pulses Skin: No significant lesion Labs Labs: Laboratory Tests Test 02/27/21 05:30 White Blood Count 3.5 x10^3/uL (4.0-11.0) Red Blood Count 2.92 x10^6/uL (4.30-5.70) Hemoglobin 8.2 g/dL (13.0-17.5) Hematocrit 25.4 % (39.0-53.0) Mean Corpuscular Volume 87 fL (79-100) Mean Corpuscular Hemoglobin 28 pg (25-35) Mean Corpuscular Hemoglobin Concent 32 g/dL (31-37) Red Cell Distribution Width 20.7 % (11.5-14.5) Platelet Count 138 x10^3/uL (140-400) Neutrophils (%) (Auto) 38 % (31-73) Lymphocytes (%) (Auto) 36 % (24-48) Monocytes (%) (Auto) 16 % (0-9) Eosinophils (%) (Auto) 9 % (0-3) Basophils (%) (Auto) 1 % (0-3) Neutrophils # (Auto) 1.3 x10^3/uL (1.8-7.7) Lymphocytes # (Auto) 1.3 x10^3/uL (1.0-4.8) Monocytes # (Auto) 0.6 x10^3/uL (0.0-1.1) Eosinophils # (Auto) 0.3 x10^3/uL (0.0-0.7) Basophils # (Auto) 0.0 x10^3/uL (0.0-0.2) Sodium Level 140 mmol/L (136-145) Potassium Level 4.0 mmol/L (3.5-5.1) Chloride Level 110 mmol/L (98-107) Carbon Dioxide Level 25 mmol/L (21-32) Anion Gap 5 (6-14) Blood Urea Nitrogen 14 mg/dL (8-26) Creatinine 1.0 mg/dL (0.7-1.3) Estimated GFR (Cockcroft-Gault) 79.4 Glucose Level 73 mg/dL (70-99) Calcium Level 7.2 mg/dL (8.5-10.1) Magnesium Level 2.0 mg/dL (1.8-2.4) Assessment and Plan Assessmemt and Plan Problems Medical Problems: (1) Ascites due to alcoholic cirrhosis Status: Acute (2) Esophageal varices in alcoholic cirrhosis Status: Acute Comment Review of Relevant I have reviewed the following items reese (where applicable) has been applied. Medications: Current Medications Medications (Trade) Dose Ordered Sig/Josefa Route PRN Reason Start Time Stop Time Status Last Admin Dose Admin Oxycodone/ Acetaminophen (Percocet 5/325) 1 tab PRN Q6HRS PRN PO MODERATE PAIN 02/26/21 13:15 02/26/21 13:34 Oxycodone/ Acetaminophen (Percocet 5/325) 2 tab PRN Q6HRS PRN PO SEVERE PAIN 02/26/21 13:15 02/27/21 08:24 Justifications for Admission Other Justification Cirrhosis with ascites YOANA GALICIA MD Feb 27, 2021 09:18
--- NOTE | 2021-02-27 11:41 | PDOC ---
[employer] PROGRESS NOTE Date of Service DOS: DATE: 02/27/21 TIME: 11:38 Chief Complaint Chief Complaint Acute abdominal pain secondary to cirrhosis with diffuse ascites Anemia of chronic disease, likely related to alcohol abuse Severe protein malnutrition Cannabinoid positivity History of medical nonadherence History of hepatitis C infection, went to hepatology for hep C treatment History of alcohol abuse History of severe GERD, portal gastropathy s/p paracentesis Continue diuresis SCD for DVT prophylaxis Protonix GI prophylaxis ADA diet CODE STATUS full Discussed with RN and SW Disposition paracentesis DPOA: Brother History of Present Illness History of Present Illness History obtained from discussion with the ED physician and chart review 50-year-old male with past medical history of alcohol abuse and cirrhosis secondary to alcohol and hepatitis C and previous paracentesis on 1025 who comes in complaining of nausea vomiting diarrhea and abdominal pain diffusely for the past 2 to 3 weeks. Patient states that he does take his medications however he has not been taking his diuretic medications. He also states that he has been sober for 1 month from alcohol. Denies any vomiting of blood or constipation. He does endorse some bloody stools and melena The patient denies fever, chills, chest pain, shortness of breath, urinary symptoms, cough, recent trauma, or any other complaints. 02/26 Late entry for February 26 Patient evaluated and examined at bedside. Was complaining of some abdominal pain still. Reviewed results of paracentesis do not see any results consistent with SBP. He is still pretty distended but he said he feels like he does have more fluid. Will keep admitted to see if another tap needed. I am happy to perform at bedside over the weekend if needed. 02/27 Patient evaluated examined at bedside. He was resting in bed reported he was still having some pain in his abdomen but was improving. Consult him the plan of care. Continue Aldactone and see how patient responds. plan of care discussed with bedside RN. Vitals/I&O Vitals/I&O: Vital Signs Date Time Temp Pulse Resp B/P (MAP) Pulse Ox O2 Delivery O2 Flow Rate FiO2 02/27/21 09:15 Room Air 02/27/21 07:00 98.0 87 16 85/34 (51) 92 98.0 I & O 02/26/21 02/26/21 02/27/21 15:00 23:00 07:00 Intake Total 300 ml 540 ml Balance 300 ml 540 ml Physical Exam General: Alert, Oriented X3, Cooperative Heart: Regular rate Lungs: Clear Abdomen: Normal bowel sounds, Soft, Other (distended, mild tenderness) Extremities: No edema, Normal pulses Skin: No significant lesion Labs Labs: Laboratory Tests Test 02/27/21 05:30 White Blood Count 3.5 x10^3/uL (4.0-11.0) Red Blood Count 2.92 x10^6/uL (4.30-5.70) Hemoglobin 8.2 g/dL (13.0-17.5) Hematocrit 25.4 % (39.0-53.0) Mean Corpuscular Volume 87 fL (79-100) Mean Corpuscular Hemoglobin 28 pg (25-35) Mean Corpuscular Hemoglobin Concent 32 g/dL (31-37) Red Cell Distribution Width 20.7 % (11.5-14.5) Platelet Count 138 x10^3/uL (140-400) Neutrophils (%) (Auto) 38 % (31-73) Lymphocytes (%) (Auto) 36 % (24-48) Monocytes (%) (Auto) 16 % (0-9) Eosinophils (%) (Auto) 9 % (0-3) Basophils (%) (Auto) 1 % (0-3) Neutrophils # (Auto) 1.3 x10^3/uL (1.8-7.7) Lymphocytes # (Auto) 1.3 x10^3/uL (1.0-4.8) Monocytes # (Auto) 0.6 x10^3/uL (0.0-1.1) Eosinophils # (Auto) 0.3 x10^3/uL (0.0-0.7) Basophils # (Auto) 0.0 x10^3/uL (0.0-0.2) Sodium Level 140 mmol/L (136-145) Potassium Level 4.0 mmol/L (3.5-5.1) Chloride Level 110 mmol/L (98-107) Carbon Dioxide Level 25 mmol/L (21-32) Anion Gap 5 (6-14) Blood Urea Nitrogen 14 mg/dL (8-26) Creatinine 1.0 mg/dL (0.7-1.3) Estimated GFR (Cockcroft-Gault) 79.4 Glucose Level 73 mg/dL (70-99) Calcium Level 7.2 mg/dL (8.5-10.1) Magnesium Level 2.0 mg/dL (1.8-2.4) Assessment and Plan Assessmemt and Plan Problems Medical Problems: (1) Ascites due to alcoholic cirrhosis Status: Acute (2) Esophageal varices in alcoholic cirrhosis Status: Acute Comment Review of Relevant I have reviewed the following items reese (where applicable) has been applied. Medications: Current Medications Medications (Trade) Dose Ordered Sig/Josefa Route PRN Reason Start Time Stop Time Status Last Admin Dose Admin Oxycodone/ Acetaminophen (Percocet 5/325) 1 tab PRN Q6HRS PRN PO MODERATE PAIN 02/26/21 13:15 02/26/21 13:34 Oxycodone/ Acetaminophen (Percocet 5/325) 2 tab PRN Q6HRS PRN PO SEVERE PAIN 02/26/21 13:15 02/27/21 08:24 Justifications for Admission Other Justification Cirrhosis with ascites YOANA GALICIA MD Feb 27, 2021 11:41
[2021-02-27] MEDS ORDERED: ALBUMIN HUMAN 25% 100 ML IV ONE (12:00)
--- NOTE | 2021-02-27 12:48 | PDOC ---
G I PROGRESS NOTE Subjective Complaining mostly of right flank pain, well away from abdomen. Physical Exam Lungs clear. RRR Abdomen softer. Review of Relevant I have reviewed the following items reese (where applicable) has been applied. Labs Laboratory Tests Test 02/25/21 15:30 02/25/21 17:15 02/26/21 03:00 02/27/21 05:30 Body Fluid Source Ascites Body Fluid Color Colorless Body Fluid Clarity Clear Body Fluid Nucleated Cells 101 /cmm (Not Established) Body Fluid Mononuclear WBCs (%) 69 % Body Fluid Polymorphonuclear Cells 22 % Body Fluid Total RBCs Counted 10 /cmm (Not Established) Body Fluid Other Cells (%) 9 % Prothrombin Time 16.2 SEC (11.7-14.0) Prothromb Time International Ratio 1.3 (0.8-1.1) White Blood Count 3.9 x10^3/uL (4.0-11.0) 3.5 x10^3/uL (4.0-11.0) Red Blood Count 3.06 x10^6/uL (4.30-5.70) 2.92 x10^6/uL (4.30-5.70) Hemoglobin 8.7 g/dL (13.0-17.5) 8.2 g/dL (13.0-17.5) Hematocrit 27.0 % (39.0-53.0) 25.4 % (39.0-53.0) Mean Corpuscular Volume 88 fL (79-100) 87 fL (79-100) Mean Corpuscular Hemoglobin 29 pg (25-35) 28 pg (25-35) Mean Corpuscular Hemoglobin Concent 32 g/dL (31-37) 32 g/dL (31-37) Red Cell Distribution Width 20.6 % (11.5-14.5) 20.7 % (11.5-14.5) Platelet Count 153 x10^3/uL (140-400) 138 x10^3/uL (140-400) Neutrophils (%) (Auto) 41 % (31-73) 38 % (31-73) Lymphocytes (%) (Auto) 33 % (24-48) 36 % (24-48) Monocytes (%) (Auto) 14 % (0-9) 16 % (0-9) Eosinophils (%) (Auto) 11 % (0-3) 9 % (0-3) Basophils (%) (Auto) 1 % (0-3) 1 % (0-3) Neutrophils # (Auto) 1.6 x10^3/uL (1.8-7.7) 1.3 x10^3/uL (1.8-7.7) Lymphocytes # (Auto) 1.3 x10^3/uL (1.0-4.8) 1.3 x10^3/uL (1.0-4.8) Monocytes # (Auto) 0.5 x10^3/uL (0.0-1.1) 0.6 x10^3/uL (0.0-1.1) Eosinophils # (Auto) 0.4 x10^3/uL (0.0-0.7) 0.3 x10^3/uL (0.0-0.7) Basophils # (Auto) 0.0 x10^3/uL (0.0-0.2) 0.0 x10^3/uL (0.0-0.2) Sodium Level 142 mmol/L (136-145) 140 mmol/L (136-145) Potassium Level 4.1 mmol/L (3.5-5.1) 4.0 mmol/L (3.5-5.1) Chloride Level 110 mmol/L (98-107) 110 mmol/L (98-107) Carbon Dioxide Level 27 mmol/L (21-32) 25 mmol/L (21-32) Anion Gap 5 (6-14) 5 (6-14) Blood Urea Nitrogen 11 mg/dL (8-26) 14 mg/dL (8-26) Creatinine 0.9 mg/dL (0.7-1.3) 1.0 mg/dL (0.7-1.3) Estimated GFR (Cockcroft-Gault) 89.7 79.4 BUN/Creatinine Ratio 12 (6-20) Glucose Level 82 mg/dL (70-99) 73 mg/dL (70-99) Calcium Level 7.1 mg/dL (8.5-10.1) 7.2 mg/dL (8.5-10.1) Phosphorus Level 4.1 mg/dL (2.6-4.7) Magnesium Level 1.9 mg/dL (1.8-2.4) 2.0 mg/dL (1.8-2.4) Total Bilirubin 0.5 mg/dL (0.2-1.0) Aspartate Amino Transf (AST/SGOT) 63 U/L (15-37) Alanine Aminotransferase (ALT/SGPT) 57 U/L (16-63) Alkaline Phosphatase 152 U/L (46-116) Total Protein 5.6 g/dL (6.4-8.2) Albumin 1.6 g/dL (3.4-5.0) Albumin/Globulin Ratio 0.4 (1.0-1.7) Laboratory Tests Test 02/27/21 05:30 White Blood Count 3.5 x10^3/uL (4.0-11.0) Red Blood Count 2.92 x10^6/uL (4.30-5.70) Hemoglobin 8.2 g/dL (13.0-17.5) Hematocrit 25.4 % (39.0-53.0) Mean Corpuscular Volume 87 fL (79-100) Mean Corpuscular Hemoglobin 28 pg (25-35) Mean Corpuscular Hemoglobin Concent 32 g/dL (31-37) Red Cell Distribution Width 20.7 % (11.5-14.5) Platelet Count 138 x10^3/uL (140-400) Neutrophils (%) (Auto) 38 % (31-73) Lymphocytes (%) (Auto) 36 % (24-48) Monocytes (%) (Auto) 16 % (0-9) Eosinophils (%) (Auto) 9 % (0-3) Basophils (%) (Auto) 1 % (0-3) Neutrophils # (Auto) 1.3 x10^3/uL (1.8-7.7) Lymphocytes # (Auto) 1.3 x10^3/uL (1.0-4.8) Monocytes # (Auto) 0.6 x10^3/uL (0.0-1.1) Eosinophils # (Auto) 0.3 x10^3/uL (0.0-0.7) Basophils # (Auto) 0.0 x10^3/uL (0.0-0.2) Sodium Level 140 mmol/L (136-145) Potassium Level 4.0 mmol/L (3.5-5.1) Chloride Level 110 mmol/L (98-107) Carbon Dioxide Level 25 mmol/L (21-32) Anion Gap 5 (6-14) Blood Urea Nitrogen 14 mg/dL (8-26) Creatinine 1.0 mg/dL (0.7-1.3) Estimated GFR (Cockcroft-Gault) 79.4 Glucose Level 73 mg/dL (70-99) Calcium Level 7.2 mg/dL (8.5-10.1) Magnesium Level 2.0 mg/dL (1.8-2.4) Microbiology 02/25/21 Gram Stain - Final, Resulted 02/25/21 Aerobic and Anaerobic Culture - Preliminary, Resulted 'Lytes stable. Vitals/I & O Vital Sign - Last 24 Hours 02/26/21 02/26/21 02/26/21 02/26/21 13:34 14:00 14:04 19:00 Temp 98.6 98.0 98.6 98.0 Pulse 90 74 Resp 18 16 B/P (MAP) 103/59 (74) 102/58 (73) Pulse Ox 95 96 O2 Delivery Room Air Room Air Room Air 02/26/21 02/26/21 02/26/21 02/26/21 19:40 22:10 22:40 23:00 Temp 97.9 97.9 Pulse 75 Resp 20 18 16 B/P (MAP) 90/46 (61) Pulse Ox 93 O2 Delivery Room Air Room Air Room Air 02/27/21 02/27/21 02/27/21 02/27/21 01:35 03:00 07:00 08:00 Temp 97.9 98.0 97.9 98.0 Pulse 72 76 87 Resp 18 16 B/P (MAP) 97/57 (70) 103/42 (62) 85/34 (51) Pulse Ox 97 92 O2 Delivery Room Air Room Air 02/27/21 02/27/21 08:24 09:15 O2 Delivery Room Air Room Air Intake and Output 02/26/21 02/26/21 02/27/21 15:00 23:00 07:00 Intake Total 300 ml 540 ml Balance 300 ml 540 ml Problem List Problems Medical Problems: (1) Ascites due to alcoholic cirrhosis Status: Acute (2) Esophageal varices in alcoholic cirrhosis Status: Acute Assessment Cirrhosis. Chronic HCV; this and alcohol likely both have contributed to his liver disease. Ascites; bit too soon to say if responding to diuretics. Plan of Care Note Continue as now. Justicifation of Admission Dx: Justifications for Admission: Justification of Admission Dx: Yes RYLIE CANTU MD Feb 27, 2021 12:48
[2021-02-27 15:50] VITALS: BP 91/35
[2021-02-27 19:00] VITALS: BP 101/55
[2021-02-27 22:42] VITALS: BP 104/58
[2021-02-28] MEDS: oxyCODONE/APAP 5/325 1 TAB TABLET PO PRN ×2 (02:01→19:59)
[2021-02-28 03:00] VITALS: BP 102/64
[2021-02-28 07:00] VITALS: BP 81/30
[2021-02-28 07:09] LABS: BASO % 1 % (0-3); EOS # 0.3 x10^3/uL (0.0-0.7); EOS % 10 % (0-3); HEMATOCRIT 25.2 % (39.0-53.0); HEMOGLOBIN 8.4 g/dL (13.0-17.5); LYMPH # 1.1 x10^3/uL (1.0-4.8); LYMPH % 35 % (24-48); MEAN CORPUSCULAR HEMOGLOBIN 29 pg (25-35); MEAN CORPUSCULAR HGB CONC 33 g/dL (31-37); MEAN CORPUSCULAR VOLUME 86 fL (79-100); MONO # 0.5 x10^3/uL (0.0-1.1); MONO % 17 % (0-9); NEUT # 1.1 x10^3/uL (1.8-7.7); NEUT % 38 % (31-73); PLATELET COUNT 142 x10^3/uL (140-400); RED BLOOD COUNT 2.92 x10^6/uL (4.30-5.70); RED CELL DISTRIBUTION WIDTH 20.9 % (11.5-14.5)
[2021-02-28 07:20] LABS: CALCIUM 7.5 mg/dL (8.5-10.1); CREATININE 1.1 mg/dL (0.7-1.3); GFR 71.1; MAGNESIUM 1.9 mg/dL (1.8-2.4); POTASSIUM 3.9 mmol/L (3.5-5.1)
[2021-02-28] MEDS: SPIRONOLACTONE 25 MG TABLET PO SCH ×2 (09:00→11:59)
[2021-02-28] MEDS: FUROSEMIDE 40 MG TABLET. PO SCH ×2 (09:00→11:59)
--- NOTE | 2021-02-28 10:18 | NUR ---
SW following. Discussed with RN, pt from home, room air, regular diet, COVID-19 negative. GI following. Pt had a paracentesis sunday. Discussion whether another one needed. RN advised no SW needs at this time. SW will continue to follow.
--- NOTE | 2021-02-28 10:25 | PDOC ---
Date of Service: DATE: 02/28/21 TIME: 10:16 Subjective: Subjective: "Liver hurts" - points to LUQ and left flank. Does not think ascites is recurring. Objective: Objective: Weight stable on Lasix and Aldactone. Vital Signs: Vital Signs Date Time Temp Pulse Resp B/P (MAP) Pulse Ox O2 Delivery O2 Flow Rate FiO2 02/28/21 07:00 98.0 63 16 81/30 (47) 93 Room Air 98.0 Labs: Laboratory Tests Test 02/28/21 06:05 White Blood Count 3.0 x10^3/uL Red Blood Count 2.92 x10^6/uL Hemoglobin 8.4 g/dL Hematocrit 25.2 % Mean Corpuscular Volume 86 fL Mean Corpuscular Hemoglobin 29 pg Mean Corpuscular Hemoglobin Concent 33 g/dL Red Cell Distribution Width 20.9 % Platelet Count 142 x10^3/uL Neutrophils (%) (Auto) 38 % Lymphocytes (%) (Auto) 35 % Monocytes (%) (Auto) 17 % Eosinophils (%) (Auto) 10 % Basophils (%) (Auto) 1 % Neutrophils # (Auto) 1.1 x10^3/uL Lymphocytes # (Auto) 1.1 x10^3/uL Monocytes # (Auto) 0.5 x10^3/uL Eosinophils # (Auto) 0.3 x10^3/uL Basophils # (Auto) 0.0 x10^3/uL Sodium Level 140 mmol/L Potassium Level 3.9 mmol/L Chloride Level 108 mmol/L Carbon Dioxide Level 28 mmol/L Anion Gap 4 Blood Urea Nitrogen 14 mg/dL Creatinine 1.1 mg/dL Estimated GFR (Cockcroft-Gault) 71.1 Glucose Level 74 mg/dL Calcium Level 7.5 mg/dL Magnesium Level 1.9 mg/dL ORDERED: ANAER/AEROB/GS COMMENTS: Specimen Description: ascites GRAM STAIN Final Final COMMENTS:GRAM STAIN PERFORMED ON CONCENTRATED SPECIMEN NO ORGANISMS SEEN. RBC:NONE SEEN SQUAMOUS EPI CELL:NOT APPLICABLE PMN (WBCs):MANY Unless otherwise specified, Testing Performed by: [address] [address] For Inquires, the Physician may contact the Microbiology department at [phone] ANAEROBIC-AEROBIC CULTURE Preliminary Preliminary No Growth on 02/27/21 at 1042 No Growth on 02/28/21 at 1006 Imaging: Paracentesis 02/25 3.3L PE: GEN: NAD LUNGS: CTAB HEART: RRR ABD: soft, less distended comparatively, doesn't seem tender NEURO/PSYCH: A & O 3, odd affect A/P: Cirrhosis (alcohol, Hep C), non-compliance, recurrent ascites s/p paracentesis MARKOS - stable Chronic pain, psych history, non-compliance COVID negative -- Continue salt restriction, diuretics. Encouraged ongoing sobriety, compliance w/ medications. Have previously discussed f/u w/ [facility]. Justicifation of Admission Dx: Justifications for Admission: Justification of Admission Dx: Yes JOHN HAN Feb 28, 2021 10:25
[2021-02-28 11:00] VITALS: BP 98/36
--- NOTE | 2021-02-28 11:05 | PDOC ---
[employer] PROGRESS NOTE Date of Service DOS: DATE: 02/28/21 TIME: 10:57 Chief Complaint Chief Complaint Acute abdominal pain secondary to cirrhosis with diffuse ascites Anemia of chronic disease, likely related to alcohol abuse Severe protein malnutrition Cannabinoid positivity History of medical nonadherence History of hepatitis C infection, went to hepatology for hep C treatment History of alcohol abuse History of severe GERD, portal gastropathy s/p paracentesis Continue diuresis SCD for DVT prophylaxis Protonix GI prophylaxis ADA diet CODE STATUS full Discussed with RN and SW Disposition paracentesis DPOA: Brother History of Present Illness History of Present Illness 50-year-old male with past medical history of alcohol abuse and cirrhosis secondary to alcohol and hepatitis C and previous paracentesis on 1025 who comes in complaining of nausea vomiting diarrhea and abdominal pain diffusely for the past 2 to 3 weeks. Patient states that he does take his medications however he has not been taking his diuretic medications. He also states that he has been sober for 1 month from alcohol. Denies any vomiting of blood or constipation. He does endorse some bloody stools and melena The patient denies fever, chills, chest pain, shortness of breath, urinary symptoms, cough, recent trauma, or any other complaints. 02/26: Patient evaluated and examined at bedside. Was complaining of some abdominal pain still. Reviewed results of paracentesis do not see any results consistent with SBP. He is still pretty distended but he said he feels like he does have more fluid. Will keep admitted to see if another tap needed. I am happy to perform at bedside over the weekend if needed. 02/27: Patient evaluated examined at bedside. He was resting in bed reported he was still having some pain in his abdomen but was improving. Consult him the plan of care. Continue Aldactone and see how patient responds. Afebrile. Gram stain no growth abdominal ascites. BP low, diuretics held. Complaining of right upper quadrant left upper quadrant pain. Tells me it is time for the rapture today and I should pray. Vitals/I&O Vitals/I&O: Vital Signs Date Time Temp Pulse Resp B/P (MAP) Pulse Ox O2 Delivery O2 Flow Rate FiO2 02/28/21 07:00 98.0 63 16 81/30 (47) 93 Room Air 98.0 Physical Exam General: Alert, Oriented X3, Cooperative Heart: Regular rate Lungs: Clear Abdomen: Normal bowel sounds, Soft, Other (distended, mild tenderness) Extremities: No edema, Normal pulses Skin: No significant lesion Labs Labs: Laboratory Tests Test 02/28/21 06:05 White Blood Count 3.0 x10^3/uL (4.0-11.0) Red Blood Count 2.92 x10^6/uL (4.30-5.70) Hemoglobin 8.4 g/dL (13.0-17.5) Hematocrit 25.2 % (39.0-53.0) Mean Corpuscular Volume 86 fL (79-100) Mean Corpuscular Hemoglobin 29 pg (25-35) Mean Corpuscular Hemoglobin Concent 33 g/dL (31-37) Red Cell Distribution Width 20.9 % (11.5-14.5) Platelet Count 142 x10^3/uL (140-400) Neutrophils (%) (Auto) 38 % (31-73) Lymphocytes (%) (Auto) 35 % (24-48) Monocytes (%) (Auto) 17 % (0-9) Eosinophils (%) (Auto) 10 % (0-3) Basophils (%) (Auto) 1 % (0-3) Neutrophils # (Auto) 1.1 x10^3/uL (1.8-7.7) Lymphocytes # (Auto) 1.1 x10^3/uL (1.0-4.8) Monocytes # (Auto) 0.5 x10^3/uL (0.0-1.1) Eosinophils # (Auto) 0.3 x10^3/uL (0.0-0.7) Basophils # (Auto) 0.0 x10^3/uL (0.0-0.2) Sodium Level 140 mmol/L (136-145) Potassium Level 3.9 mmol/L (3.5-5.1) Chloride Level 108 mmol/L (98-107) Carbon Dioxide Level 28 mmol/L (21-32) Anion Gap 4 (6-14) Blood Urea Nitrogen 14 mg/dL (8-26) Creatinine 1.1 mg/dL (0.7-1.3) Estimated GFR (Cockcroft-Gault) 71.1 Glucose Level 74 mg/dL (70-99) Calcium Level 7.5 mg/dL (8.5-10.1) Magnesium Level 1.9 mg/dL (1.8-2.4) Assessment and Plan Assessmemt and Plan Problems Medical Problems: (1) Ascites due to alcoholic cirrhosis Status: Acute (2) Esophageal varices in alcoholic cirrhosis Status: Acute Comment Review of Relevant I have reviewed the following items reese (where applicable) has been applied. Medications: Current Medications Medications (Trade) Dose Ordered Sig/Josefa Route PRN Reason Start Time Stop Time Status Last Admin Dose Admin Albumin Human 100 ml @ 100 mls/hr 1X ONCE IV 02/27/21 12:00 02/27/21 12:59 DC 02/27/21 12:00 Justifications for Admission Other Justification Cirrhosis with ascites YOANA HOPSON MD Feb 28, 2021 11:05
[2021-02-28] MEDS: traMADol 50 MG TABLET PO PRN (11:59)
[2021-02-28 15:00] VITALS: BP 135/85
[2021-02-28 19:00] VITALS: BP 95/50
[2021-02-28] MEDS: ZOLPIDEM 5 MG TABLET. PO PRN (19:59)
[2021-02-28 22:59] VITALS: BP 106/58
[2021-03-01 03:25] VITALS: BP 81/51
[2021-03-01 07:00] VITALS: BP 91/52
[2021-03-01] MEDS: FUROSEMIDE 40 MG TABLET. PO SCH (08:31)
[2021-03-01] MEDS: SPIRONOLACTONE 25 MG TABLET PO SCH (08:32)
[2021-03-01] MEDS: PANTOPRAZOLE 40 MG TABLET.DR. PO SCH (08:32)
[2021-03-01] MEDS: traMADol 50 MG TABLET PO PRN ×2 (08:32→12:09)
[2021-03-01 11:00] VITALS: BP 100/39
--- NOTE | 2021-03-01 11:02 | PDOC ---
Date of Service: DATE: 03/01/21 TIME: 11:00 Subjective: Subjective: "Doing alright." No GI-related complaints today. Objective: Vital Signs: Vital Signs Date Time Temp Pulse Resp B/P (MAP) Pulse Ox O2 Delivery O2 Flow Rate FiO2 03/01/21 09:02 Room Air 03/01/21 07:00 98.1 70 16 91/52 (65) 96 98.1 PE: GEN: NAD - was asleep LUNGS: CTAB HEART: RRR ABD: S/ND/NT NEURO/PSYCH: A & O 3 A/P: Cirrhosis (alcohol, Hep C) Ascites s/p paracentesis MARKOS - stable Psych history -- Stable GI-[facility] w/ salt restriction, diuretics, no alcohol. Dc per primary. Ideally would follow-up w/ [facility] as previously di claued. Justicifation of Admission Dx: Justifications for Admission: Justification of Admission Dx: Yes JOHN HAN Mar 01, 2021 11:02
[2021-03-01] MEDS ORDERED: OLAN5TAB7 PO (11:28)
[2021-03-01] MEDS ORDERED: SPIR100T4 PO (11:28)
[2021-03-01] MEDS ORDERED: FURO40TA4 PO (11:28)
--- NOTE | 2021-03-01 11:31 | PDOC ---
[employer] PROGRESS NOTE Date of Service DOS: DATE: 03/01/21 TIME: 11:30 Chief Complaint Chief Complaint Acute abdominal pain secondary to cirrhosis with diffuse ascites Anemia of chronic disease, likely related to alcohol abuse Severe protein malnutrition Cannabinoid positivity History of medical nonadherence History of hepatitis C infection, went to hepatology for hep C treatment History of alcohol abuse History of severe GERD, portal gastropathy s/p paracentesis Continue diuresis SCD for DVT prophylaxis Protonix GI prophylaxis ADA diet CODE STATUS full Discussed with RN and SW Disposition paracentesis DPOA: Brother History of Present Illness History of Present Illness 50-year-old male with past medical history of alcohol abuse and cirrhosis secondary to alcohol and hepatitis C and previous paracentesis on 1025 who comes in complaining of nausea vomiting diarrhea and abdominal pain diffusely for the past 2 to 3 weeks. Patient states that he does take his medications however he has not been taking his diuretic medications. He also states that he has been sober for 1 month from alcohol. Denies any vomiting of blood or constipation. He does endorse some bloody stools and melena The patient denies fever, chills, chest pain, shortness of breath, urinary symptoms, cough, recent trauma, or any other complaints. 02/26: Patient evaluated and examined at bedside. Was complaining of some abdominal pain still. Reviewed results of paracentesis do not see any results consistent with SBP. He is still pretty distended but he said he feels like he does have more fluid. Will keep admitted to see if another tap needed. I am happy to perform at bedside over the weekend if needed. 02/27: Patient evaluated examined at bedside. He was resting in bed reported he was still having some pain in his abdomen but was improving. Consult him the plan of care. Continue Aldactone and see how patient responds. 02/28: Afebrile. Gram stain no growth abdominal ascites. BP low, diuretics held. Complaining of right upper quadrant left upper quadrant pain. Tells me it is time for the rapture today and I should pray. Pain better controlled. Tolerating spironolactone and furosemide advised outpatient hematology follow-up. Call [facility] gastroenterology for hepatology appointment Vitals/I&O Vitals/I&O: Vital Signs Date Time Temp Pulse Resp B/P (MAP) Pulse Ox O2 Delivery O2 Flow Rate FiO2 11/9/21 09:02 Room Air 03/01/21 07:00 98.1 70 16 91/52 (65) 96 98.1 I & O 02/28/21 02/28/21 03/01/21 15:00 23:00 07:00 Intake Total 0 ml Balance 0 ml Physical Exam General: Alert, Oriented X3, Cooperative Heart: Regular rate Lungs: Clear Abdomen: Normal bowel sounds, Soft, Other (distended, mild tenderness) Extremities: No edema, Normal pulses Skin: No significant lesion Assessment and Plan Assessmemt and Plan Problems Medical Problems: (1) Ascites due to alcoholic cirrhosis Status: Acute (2) Esophageal varices in alcoholic cirrhosis Status: Acute Comment Review of Relevant I have reviewed the following items reese (where applicable) has been applied. Justifications for Admission Other Justification Cirrhosis with ascites YOANA HOPSON MD Mar 01, 2021 11:31
--- NOTE | 2021-03-01 11:35 | PDOC3 ---
Discharge Summary Visit Information Date of Admission: Feb 27, 2021 Date of Discharge: Mar 01, 2021 Admitting Diagnosis: Ascites due to alcoholic and hep c Cirrhosis Final Diagnosis Problems Medical Problems: (1) Ascites due to alcoholic cirrhosis Status: Acute (2) Esophageal varices in alcoholic cirrhosis Status: Acute Brief Hospital Course Allergies Allergies Coded Allergies Type Severity Reaction Last Updated Verified Penicillins Allergy Intermediate rash 01/24/21 Yes Vital Signs Vital Signs Date Time Temp Pulse Resp B/P (MAP) Pulse Ox O2 Delivery O2 Flow Rate FiO2 03/01/21 09:02 Room Air 03/01/21 07:00 98.1 70 16 91/52 (65) 96 98.1 Lab Results Laboratory Tests Test 02/28/21 06:05 White Blood Count 3.0 x10^3/uL (4.0-11.0) Red Blood Count 2.92 x10^6/uL (4.30-5.70) Hemoglobin 8.4 g/dL (13.0-17.5) Hematocrit 25.2 % (39.0-53.0) Mean Corpuscular Volume 86 fL (79-100) Mean Corpuscular Hemoglobin 29 pg (25-35) Mean Corpuscular Hemoglobin Concent 33 g/dL (31-37) Red Cell Distribution Width 20.9 % (11.5-14.5) Platelet Count 142 x10^3/uL (140-400) Neutrophils (%) (Auto) 38 % (31-73) Lymphocytes (%) (Auto) 35 % (24-48) Monocytes (%) (Auto) 17 % (0-9) Eosinophils (%) (Auto) 10 % (0-3) Basophils (%) (Auto) 1 % (0-3) Neutrophils # (Auto) 1.1 x10^3/uL (1.8-7.7) Lymphocytes # (Auto) 1.1 x10^3/uL (1.0-4.8) Monocytes # (Auto) 0.5 x10^3/uL (0.0-1.1) Eosinophils # (Auto) 0.3 x10^3/uL (0.0-0.7) Basophils # (Auto) 0.0 x10^3/uL (0.0-0.2) Sodium Level 140 mmol/L (136-145) Potassium Level 3.9 mmol/L (3.5-5.1) Chloride Level 108 mmol/L (98-107) Carbon Dioxide Level 28 mmol/L (21-32) Anion Gap 4 (6-14) Blood Urea Nitrogen 14 mg/dL (8-26) Creatinine 1.1 mg/dL (0.7-1.3) Estimated GFR (Cockcroft-Gault) 71.1 Glucose Level 74 mg/dL (70-99) Calcium Level 7.5 mg/dL (8.5-10.1) Magnesium Level 1.9 mg/dL (1.8-2.4) Brief Hospital Course Mr Juárez is a 50-year-old male with past medical history of alcohol abuse and cirrhosis secondary to alcohol and hepatitis C and previous paracentesis on 1025 who comes in complaining of nausea vomiting diarrhea and abdominal pain diffusely for the past 2 to 3 weeks. Patient states that he does take his medications however he has not been taking his diuretic medications. He also states that he has been sober for 1 month from alcohol. Denies any vomiting of blood or constipation. He does endorse some bloody stools and melena The patient denies fever, chills, chest pain, shortness of breath, urinary symptoms, cough, recent trauma, or any other complaints. 02/26: Patient evaluated and examined at bedside. Was complaining of some abdominal pain still. Reviewed results of paracentesis do not see any results consistent with SBP. He is still pretty distended but he said he feels like he does have more fluid. Will keep admitted to see if another tap needed. I am happy to perform at bedside over the weekend if needed. 02/27: Patient evaluated examined at bedside. He was resting in bed reported he was still having some pain in his abdomen but was improving. Consult him the plan of care. Continue Aldactone and see how patient responds. 02/28: Afebrile. Gram stain no growth abdominal ascites. BP low, diuretics held. Complaining of right upper quadrant left upper quadrant pain. Tells me it is time for the rapture today and I should pray. Pain better controlled. Tolerating spironolactone and furosemide advised outpatient hematology follow-up. Weight from 65 kg down to 61.4 kg after paracentesis and aggressive diuresis. Home 100 mg daily and spironolactone and 40 mg of furosemide and Call [facility] gastroenterology for hepatology appointment Consults: GI Problem list: Acute abdominal pain secondary to cirrhosis with diffuse ascites Anemia of chronic disease, likely related to alcohol abuse Severe protein malnutrition Cannabinoid positivity History of medical nonadherence History of hepatitis C infection, went to hepatology for hep C treatment History of alcohol abuse History of severe GERD, portal gastropathy Pain medication seeking behavior Strange affect s/p paracentesis 3.3 L on 02/25/2021 Continue diuresis outpatient Protonix GI prophylaxis ADA diet CODE STATUS full DPOA: Brother Greater than 30 minutes spent on d/c home Discharge Information Condition at Discharge: Improved Follow Up: Weeks (1) Disposition/Orders: D/C to Home Scheduled Furosemide (Furosemide) 40 Mg Tablet, 40 MG PO DAILY for Cirrhosis for 30 Days, #30 Ref 5 Prescribed by: YOANA HOPSON MD on 03/01/21 1128 Pantoprazole Sodium (Pantoprazole Sodium ) 40 Mg Tablet.dr, 40 MG PO DAILYAC for GERD for 30 Days, #30 Ref 5 Prescribed by: YOANA HOPSON MD on 02/17/21 1003 Last Action: Last Taken Edited on 02/25/21 1154 by NICOLAS CATHERINE Spironolactone (Spironolactone) 100 Mg Tablet, 1 TAB PO DAILY for Cirrhosis for 30 Days, #30 Ref 5 Prescribed by: YOANA HOPSON MD on 03/01/21 1128 Scheduled PRN Melatonin (Melatonin) 3 Mg Capsule, 3 MG PO PRN BFRMEALHC PRN for INSOMNIA, (Reported) Entered as Reported by: MODESTA PRESSLEY on 01/24/21 0410 Last Taken: Unknown Dose on 02/24/21 Last Action: Last Taken Edited on 02/25/21 1154 by NICOLAS CATHERINE Olanzapine (Olanzapine Odt) 5 Mg Tab.rapdis, 5 MG PO PRN BID PRN for ANXIETY / AGITATION for 30 Days, #60 Ref 5 Prescribed by: YOANA HOPSON MD on 03/01/21 1128 Justicifation of Admission Dx: Justifications for Admission: Justification of Admission Dx: Yes YOANA HOPSON MD Mar 01, 2021 11:35
--- NOTE | 2021-03-01 12:31 | NUR ---
SW following. Discussed with RN, discharge order for home with self care. RN advised no SW needs.
[2021-03-01 15:00] VITALS: BP 96/40
== END 2021-03-01 16:00 | disposition home or self-care (01) | DRG 432 ==
LOC: ER 07:30 → 4 NORTH 10:06 → OBSVTOIN 02-27 09:18
PROVIDERS: ADMIT Internal Medicine; ATTEND Internal Medicine
PROC: 0W9G3ZZ Drainage of Peritoneal Cavity, Percutaneous Approach (ICD-10-PCS; principal; 2021-02-27)
DX: K70.31 Alcoholic cirrhosis of liver with ascites (principal); E43 Unspecified severe protein-calorie malnutrition; I85.10 Secondary esophageal varices without bleeding; J98.11 Atelectasis; K76.6 Portal hypertension; B18.2 Chronic viral hepatitis C; D63.8 Anemia in other chronic diseases classified elsewhere; F10.10 Alcohol abuse, uncomplicated; F17.200 Nicotine dependence, unspecified, uncomplicated; F20.9 Schizophrenia, unspecified; G89.29 Other chronic pain; K21.9 Gastro-esophageal reflux disease without esophagitis; Z20.822 Contact with and (suspected) exposure to COVID-19; Z76.5 Malingerer [conscious simulation]; Z87.11 Personal history of peptic ulcer disease; F41.9 Anxiety disorder, unspecified; Z68.20 Body mass index [BMI] 20.0-20.9, adult; Z88.0 Allergy status to penicillin
CPT/HCPCS: 36415; 49083; 74177; 80048; 80053; 80307; 81001; 83690; 83735; 84100; 85025; 85610; 87071; 87075; 87426; 88112; 88305; 89050; 96361; 96374; 96375; G0378; G0379; G0480; J2270; J2405; J7030; P9046; Q9967; U0003; U0005; 99285-25